=== PATIENT | male | born 1980 | race Hispanic/Latino ===

== ENCOUNTER 2018-11-07 23:21 | Emergency (ER) | payer SELFPAY ==
[2018-11-08 01:20] LABS: Absolute Lymphocytes (CBC) 1.6 K/uL (0.7-4.9); Absolute Monocytes 0.4 K/uL (0.1-1.3); Absolute Neutrophil 6.9 K/uL (1.8-8.0); Basophils % 0.5 % (0-1.3); Eosinophils % 1.1 % (0-4.4); Hematocrit 46.3 % (39.6-49.0); MPV 8.7 fL (7.6-11.3); RBC Red Blood Cell Count 5.55 M/uL (4.33-5.43)
[2018-11-08 01:26] LABS: Protime INR 0.94
[2018-11-08 01:38] LABS: ALT/SGPT 41 U/L (12-78); AST/SGOT 25 U/L (15-37); Albumin 3.9 g/dL (3.4-5.0); Alkaline Phosphatase 108 U/L (45-117); BUN Blood Urea Nitrogen 8 mg/dL (7-18); Bicarbonate 26 mmol/L (21-32); Bilirubin Direct 0.1 mg/dL (0-0.2); Bilirubin Total 0.3 mg/dL (0.2-1.0); Glucose Level 94 mg/dL (74-106); Potassium 3.7 mmol/L (3.5-5.1); Protein, Total 8.1 g/dL (6.4-8.2); Sodium Level 144 mmol/L (136-145)
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
[2018-11-08 03:20] VITALS: O2SAT 98
[2018-11-08 03:22] VITALS: BP 121/72; TEMP 98.5
--- NOTE | 2018-11-08 08:33 | EKG ---
Test Date: 2018-11-08 Test Time: 00:26:02 Tube Sorter: SAMEERA MEASUREMENT RESULTS: Intervals: Rate: 89 TX: 148 QRSD: 76 QT: 364 QTc: 442 [place]: P: 32 TX: 148 QRS: 58 T: 24 INTERPRETIVE STATEMENTS: Normal sinus rhythm with sinus arrhythmia Normal ECG Compared to ECG 04/17/2017 17:29:31 No significant changes Electronically Signed On 11-08-18 08:32:34 CDT by Gregg Johnson
--- NOTE | 2018-11-08 12:27 | RAD REPORT ---
EXAM DESCRIPTION: CT head Without Intravenous Contrast CT cervical Spine Without Intravenous Contrast CT Chest Without Intravenous Contrast CT Abdomen and Pelvis Without Intravenous Contrast CLINICAL HISTORY: The patient is 38 years old and is Male; PAIN TECHNIQUE: Axial computed tomography images of the head and cervical spine as well as chest, abdomen , pelvis without intravenous contrast. Sagittal and coronal reformatted images were created and rev iewed. This CT exam was performed using one or more of the following dose reduction techniques: a utomated exposure control, adjustment of the mA and/or kV according to patient size, and/or use of it erative reconstruction technique. COMPARISON: None. FINDINGS: INTRACRANIAL: Brain: No acute intracranial hemorrhage. No acute territorial infarct. No extra-axial collection. Ventricles: Within normal limits in size. Globes and orbits: No acute abnormality. Bones: No acute osseous finding. Paranasal sinuses: Paranasal sinuses are clear. Mastoid air cells: Well pneumatized.. Soft tissues: Within normal limits CHEST: LUNGS: Unremarkable. No mass. No consolidation. PLEURAL SPACE: No focal consolidation, pleural effusion or pneumothorax. HEART: Heart is within normal limits. No significant pericardial effusion. THYROID: Visualized thyroid is unremarkable. ABDOMEN: LIVER: Unremarkable. GALLBLADDER AND BILE DUCTS: Unremarkable. No calcified stones. No ductal dilation. PANCREAS: Unremarkable. No ductal dilation. SPLEEN: Unremarkable. No splenomegaly. ADRENALS: Unremarkable. No mass. KIDNEYS AND URETERS: Unremarkable. No obstructing stones. No hydronephrosis. STOMACH AND BOWEL: Unremarkable. No obstruction. No mucosal thickening. PELVIS: APPENDIX: No findings to suggest acute appendicitis. BLADDER: Unremarkable. No stones. REPRODUCTIVE: Unremarkable as visualized. CERVICAL SPINE: VERTEBRAE: Unremarkable. No acute fracture. DISCS/SPINAL CANAL/NEURAL FORAMINA: No acute findings. No spinal canal stenosis. CHEST, ABDOMEN and PELVIS: INTRAPERITONEAL SPACE: Unremarkable. No significant fluid collection. No free air. BONES/JOINTS: Unremarkable. No acute fracture. No dislocation. SOFT TISSUES: Unremarkable. VASCULATURE: Unremarkable. No aortic aneurysm. LYMPH NODES: No mediastinal lymphadenopathy. IMPRESSION: 1. No acute intracranial abnormality. 2. No cervical spine fracture or subluxation. 3. No acute abnormality of the chest, abdomen and pelvis. 4. Minimal sigmoid diverticulosis without acute diverticulitis. Electronically signed by: Kaleb Greene DO 11/08/2018 2:02 AM CDT Due to temporary technical issues with the PACS/Fluency reporting system, reports are being signed by the in house radiologist as a courtesy to ensure prompt reporting. The interpreting radiologist is f ully responsible for the content of the report.
== END 2018-11-08 02:46 | disposition home or self-care (01) ==
LOC: ER 23:21
DX: S30.0XXA Contusion of lower back and pelvis, initial encounter (principal); F10.929 Alcohol use, unspecified with intoxication, unspecified; V49.40XA Driver injured in collision with unspecified motor vehicles in traffic accident, initial encounter
CPT/HCPCS: 36415; 70450; 71250; 72125; 80048; 80076; 80320; 80329; 85025; 85610; 85730; 93005; 99285

== ENCOUNTER 2019-03-03 14:06 | Inpatient (IN) | payer SELFPAY ==
--- NOTE | 2019-03-03 15:05 | ER ---
Nurse's Notes [facility] Name: Adolph Keenan Age: 38 yrs Sex: Male : 1980 Arrival Date: 03/03/2019 Time: 14:07 Bed 7 Private MD: Diagnosis: Chest pain, unspecified;Essential (primary) hypertension;Type 2 diabetes mellitus Presentation: 03/03 14:20 Presenting complaint: Patient states: chest pain with SOB that began 2-3 days ago. Pt aa5 also c/o pain to back of head. Transition of care: patient was not received from another setting of care. Onset of symptoms was February 2019. Risk Assessment: Do you want to hurt yourself or someone else? Patient reports no desire to harm self or others. Initial Sepsis Screen: Does the patient meet any 2 criteria? No. Patient's initial sepsis screen is negative. Does the patient have a suspected source of infection? No. Patient's initial sepsis screen is negative. Care prior to arrival: None. 14:20 Acuity: JOAQUIN 3 aa5 14:20 Method Of Arrival: Ambulatory aa5 Historical: - Allergies: 14:23 No Known Allergies; aa5 - Home Meds: 14:23 None [Active]; aa5 - PMHx: 14:23 Hypertension; Diabetes - NIDDM; aa5 - PSHx: 14:23 Appendectomy; aa5 - Immunization history:: Adult Immunizations unknown. - Social history:: Smoking status: Patient/guardian denies using tobacco. - Ebola Screening: : No symptoms or risks identified at this time. - Family history:: not pertinent. Screenin:30 Abuse screen: Denies threats or abuse. Denies injuries from another. Nutritional sv screening: No deficits noted. Tuberculosis screening: No symptoms or risk factors identified. Fall Risk None identified. Assessment: 14:45 General: Appears in no apparent distress. uncomfortable, well developed, Behavior is sv calm, cooperative, appropriate for age. Pain: Complains of pain in anterior aspect of left upper chest, mid-sternal area and left breast Pain does not radiate. Pain currently is 5 out of 10 on a pain scale. Quality of pain is described as pressure, Pain began 2-3 days ago. Is intermittent. Neuro: Level of Consciousness is awake, alert, obeys commands, Oriented to person, place, time, situation, Moves all extremities. Full function Gait is steady, Speech is normal. Cardiovascular: Heart tones S1 S2 present Patient's skin is warm and dry. Pulses are 3+ in right brachial artery and left brachial artery Rhythm is sinus rhythm. Respiratory: Airway is patent Respiratory effort is even, unlabored, Respiratory pattern is regular, symmetrical. Derm: Skin is pink, warm \T\ dry. Musculoskeletal: Range of motion: intact in all extremities. 15:10 Reassessment: Pt up for admission, lab and radiology results pending. sv 16:31 Reassessment: Patient appears in no apparent distress at this time. No changes from sv previously documented assessment. Patient and/or family updated on plan of care and expected duration. Pain level reassessed. Patient is alert, oriented x 3, equal unlabored respirations, skin warm/dry/pink. Vital Signs: 14:23 BP 107 / 60; Pulse 64; Resp 18 S; Temp 97.5(TE); Pulse Ox 100% on R/A; Weight 68.04 kg aa5 (R); Height 5 ft. 8 in. (172.72 cm) (R); 16:27 BP 112 / 64; Pulse 49; Resp 15; Temp 98; Pulse Ox 100% on R/A; sv 14:23 Body Mass Index 22.81 (68.04 kg, 172.72 cm) aa5 NIH Stroke Scale Scores: 18:49 NIHSS Score: 0 [facility] ED Course: 14:07 Patient arrived in ED. as 14:20 Arm band placed on. aa5 14:22 Triage completed. aa 14:30 Patient has correct armband on for positive identification. Placed in gown. Bed in low sv position. Call light in reach. court recording monitor on. Pulse ox on. NIBP on. Door closed. Head of bed elevated. 14:33 Hermelindo Moreira MD is Attending Physician. nishant 14:51 Dixie Kincaid RN is Primary Nurse. sv 14:59 Robert Dey MD is Hospitalizing Provider. nishant 15:00 Initial lab(s) drawn, by sc, sent to lab. Inserted saline lock: 20 gauge in left hand, sv using aseptic technique. Blood collected. Flushed left hand with 5 ml normal saline. 15:04 X-ray(s) taken. Patient maintains SpO2 saturation greater than 95% on room air. sv 15:08 XRAY Chest (1 view) In Process Unspecified. EDMS 16:32 No provider procedures requiring assistance completed. Patient admitted, IV remains in sv place. intact. 19:08 Primary Nurse role handed off by Dixie Kincaid RN sv Administered Medications: 15:03 Drug: Aspirin Chewable Tablet 324 mg Route: PO; hb 16:00 Follow up: Response: No adverse reaction sv 15:04 Drug: Lovenox 1 mg/kg Route: Sub-Q; Site: abdomen; hb 16:00 Follow up: Response: No adverse reaction sv Point of Care Testing: Blood Glucose: 14:25 Blood Glucose: 173 mg/dL; aa5 Ranges: Outcome: 15:04 Decision to Hospitalize by Provider. nishant 16:32 Admitted to Tele accompanied by nurse, via wheelchair, room 404, with chart, Report sv called to Amol MIRANDA 16:32 Condition: stable 16:32 Instructed on the need for admit. 16:45 Patient left the ED. sv 19:18 Patient left the ED. NIH Stroke Scale - NIH Stroke Score Date: 03/03/2019 Time: 18:49 Total Score = 0 1a. Level of Consciousness (LOC) - 0(Alert) 1b. Level of Consciousness (LOC) (Year \T\ Age) - 0(Both) 1c. LOC Commands (Open \T\ Closes Eyes/Wastewater Technician) - 0(Both) 2. Best Gaze (Lateral Gaze Paresis) - 0(Normal) 3. Visual Field Loss - 0(No visual loss) 4. Facial Palsy - 0(Normal) 5a. Left Arm: Motor (10-second hold) - 0(No drift) 5b. Right Arm: Motor (10-second hold) - 0(No drift) 6a. Left Leg: Motor (5-second hold - always test supine) - 0(No drift) 6b. Right Leg: Motor (5-second hold - always test supine) - 0(No drift) 7. Limb Ataxia (finger/nose \T\ heel/maurer - test with eyes open) - 0(Absent) 8. Sensory Loss (pinprick arms/legs/face) - 0(Normal) 9. Best Language: Aphasia (description/naming/reading) - 0(No aphasia) 10. Dysarthria (speech clarity - read or repeat words) - 0(Normal) 11. Extinction and Inattention (visual/tactile/auditory/spatial/personal) - 0(No abnormality) Initials: nishant Signatures: Dispatcher [employer] Dixie Lezama RN RN sv Anderson, Corey, MD MD cha Martinez, Amelia as Calderon, Audri, RN RN aa5 Marti Avendano RN RN hb Antunez, Elena, RN RN ea Corrections: (The following items were deleted from the chart) 17:20 17:19 Patient left the ED. jacki echeverria
--- NOTE | 2019-03-03 15:05 | EDPHYS ---
Physician Documentation [facility] Name: Adolph Keenan Age: 38 yrs Sex: Male : 1980 Arrival Date: 03/03/2019 Time: 14:07 Bed 7 Private MD: ED Physician Hermelindo Moreira HPI: 03/03 14:56 This 38 yrs old Male presents to ER via Ambulatory with complaints of Chest nishant Pain. 14:56 The patient or guardian reports chest pain that is located primarily in the substernal nishant area. The pain does not radiate. Associated signs and symptoms: Pertinent positives: shortness of breath. The chest pain is described as a heaviness, a pressure. Modifying factors: The symptoms are alleviated by nothing. the symptoms are aggravated by nothing. Severity of pain: At its worst the pain was mild. The patient has not experienced similar symptoms in the past. Historical: - Allergies: 14:23 No Known Allergies; aa5 - Home Meds: 14:23 None [Active]; aa5 - PMHx: 14:23 Hypertension; Diabetes - NIDDM; aa5 - PSHx: 14:23 Appendectomy; aa5 - Immunization history:: Adult Immunizations unknown. - Social history:: Smoking status: Patient/guardian denies using tobacco. - Ebola Screening: : No symptoms or risks identified at this time. - Family history:: not pertinent. ROS: 14:56 Constitutional: Negative for fever, chills, and weight loss, Eyes: Negative for injury, nishant pain, redness, and discharge, ENT: Negative for injury, pain, and discharge, Neck: Negative for injury, pain, and swelling, Respiratory: Negative for shortness of breath, cough, wheezing, and pleuritic chest pain, Abdomen/GI: Negative for abdominal pain, nausea, vomiting, diarrhea, and constipation. 14:56 Back: Negative for injury and pain, : Negative for injury, bleeding, discharge, and swelling, MS/Extremity: Negative for injury and deformity, Skin: Negative for injury, rash, and discoloration, Neuro: Negative for headache, weakness, numbness, tingling, and seizure. 14:56 Cardiovascular: Positive for chest pain. Exam: 14:57 Constitutional: This is a well developed, well nourished patient who is awake, alert, nishant and in no acute distress. Head/Face: Normocephalic, atraumatic. Eyes: Pupils equal round and reactive to light, extra-ocular motions intact. Lids and lashes normal. Conjunctiva and sclera are non-icteric and not injected. Cornea within normal limits. Periorbital areas with no swelling, redness, or edema. ENT: Nares patent. No nasal discharge, no septal abnormalities noted. Tympanic membranes are normal and external auditory canals are clear. Oropharynx with no redness, swelling, or masses, exudates, or evidence of obstruction, uvula midline. Mucous membranes moist. Neck: Trachea midline, no thyromegaly or masses palpated, and no cervical lymphadenopathy. Supple, full range of motion without nuchal rigidity, or vertebral point tenderness. No Meningismus. Chest/axilla: Normal chest wall appearance and motion. Nontender with no deformity. No lesions are appreciated. Cardiovascular: Regular rate and rhythm with a normal S1 and S2. No gallops, murmurs, or rubs. Normal PMI, no JVD. No pulse deficits. Respiratory: Lungs have equal breath sounds bilaterally, clear to auscultation and percussion. No rales, rhonchi or wheezes noted. No increased work of breathing, no retractions or nasal flaring. Abdomen/GI: Soft, non-tender, with normal bowel sounds. No distension or tympany. No guarding or rebound. No evidence of tenderness throughout. Back: No spinal tenderness. No costovertebral tenderness. Full range of motion. Male : Normal genitalia with no discharge or lesions. Skin: Warm, dry with normal turgor. Normal color with no rashes, no lesions, and no evidence of cellulitis. MS/ Extremity: Pulses equal, no cyanosis. Neurovascular intact. Full, normal range of motion. Neuro: Awake and alert, GCS 15, oriented to person, place, time, and situation. Cranial nerves II-XII grossly intact. Motor strength 5/5 in all extremities. Sensory grossly intact. Cerebellar exam normal. Normal gait. Psych: Awake, alert, with orientation to person, place and time. Behavior, mood, and affect are within normal limits. 14:57 Musculoskeletal/extremity: DVT Exam: No signs of deep vein thrombosis. no pain, no swelling, no tenderness, negative Homans' sign noted on exam, no appreciated bluish discoloration, no erythema, no increased warmth. 18:49 Neck: ROM/movement: is normal, no acute changes, Meningeal signs: are not present, nishant Kernig's sign is negative, Brudzinski's sign is negative, nuchal rigidity, is not appreciated. Vital Signs: 14:23 BP 107 / 60; Pulse 64; Resp 18 S; Temp 97.5(TE); Pulse Ox 100% on R/A; Weight 68.04 kg aa5 (R); Height 5 ft. 8 in. (172.72 cm) (R); 16:27 BP 112 / 64; Pulse 49; Resp 15; Temp 98; Pulse Ox 100% on R/A; sv 14:23 Body Mass Index 22.81 (68.04 kg, 172.72 cm) aa5 NIH Stroke Scale Scores: 18:49 NIHSS Score: 0 nishant MDM: 14:33 Patient medically screened. nishant 14:58 Data reviewed: vital signs, nurses notes, lab test result(s), EKG, radiologic studies, nishant plain films. 03/03 14:43 Order name: Basic Metabolic Panel; Complete Time: 15:57 [facility] 03/03 14:43 Order name: CBC with Diff; Complete Time: 15:58 [facility] 03/03 14:43 Order name: LFT's; Complete Time: 15:58 [facility] 03/03 14:43 Order name: Magnesium; Complete Time: 15:58 [facility] 03/03 14:43 Order name: NT PRO-BNP; Complete Time: 15:58 [facility] 03/03 14:43 Order name: PT-INR; Complete Time: 15:58 [facility] 03/03 14:43 Order name: Troponin (emerg Dept Use Only); Complete Time: 15:58 [facility] 03/03 14:43 Order name: XRAY Chest (1 view); Complete Time: 16:19 [facility] 03/03 14:43 Order name: EKG; Complete Time: 14:45 [facility] 03/03 14:43 Order name: Cardiac monitoring; Complete Time: 15:03 [facility] 03/03 14:43 Order name: Lipase; Complete Time: 15:58 [facility] 03/03 15:34 Order name: CONS Physician Consult EDMS 03/03 14:43 Order name: EKG - Nurse/Tech; Complete Time: 14:55 [facility] 03/03 14:43 Order name: IV Saline Lock; Complete Time: 15:03 [facility] 03/03 14:43 Order name: Labs collected and sent; Complete Time: 15:10 [facility] 03/03 14:43 Order name: O2 Per Protocol; Complete Time: 15:03 [facility] 03/03 14:43 Order name: O2 Sat Monitoring; Complete Time: 15:03 [facility] Administered Medications: 15:03 Drug: Aspirin Chewable Tablet 324 mg Route: PO; hb 16:00 Follow up: Response: No adverse reaction sv 15:04 Drug: Lovenox 1 mg/kg Route: Sub-Q; Site: abdomen; hb 16:00 Follow up: Response: No adverse reaction sv Point of Care Testing: Blood Glucose: 14:25 Blood Glucose: 173 mg/dL; aa5 Ranges: Critical Glucose Levels:Adult <50 mg/dl or >400 mg/dl <40 mg/dl or >180 mg/dl Disposition: 03/03/19 15:04 Hospitalization ordered by Robert Dey for Observation. Preliminary diagnosis are Chest pain, unspecified, Essential (primary) hypertension, Type 2 diabetes mellitus. - Bed requested for Telemetry/MedSurg (observation). - Status is Observation. ea - Condition is Stable. - Problem is new. - Symptoms have improved. UTI on Admission? No NIH Stroke Scale - NIH Stroke Score Date: 03/03/2019 Time: 18:49 Total Score = 0 1a. Level of Consciousness (LOC) - 0(Alert) 1b. Level of Consciousness (LOC) (Year \T\ Age) - 0(Both) 1c. LOC Commands (Open \T\ Closes Eyes/Human Projectile) - 0(Both) 2. Best Gaze (Lateral Gaze Paresis) - 0(Normal) 3. Visual Field Loss - 0(No visual loss) 4. Facial Palsy - 0(Normal) 5a. Left Arm: Motor (10-second hold) - 0(No drift) 5b. Right Arm: Motor (10-second hold) - 0(No drift) 6a. Left Leg: Motor (5-second hold - always test supine) - 0(No drift) 6b. Right Leg: Motor (5-second hold - always test supine) - 0(No drift) 7. Limb Ataxia (finger/nose \T\ heel/maurer - test with eyes open) - 0(Absent) 8. Sensory Loss (pinprick arms/legs/face) - 0(Normal) 9. Best Language: Aphasia (description/naming/reading) - 0(No aphasia) 10. Dysarthria (speech clarity - read or repeat words) - 0(Normal) 11. Extinction and Inattention (visual/tactile/auditory/spatial/personal) - 0(No abnormality) Initials: nishant Signatures: Dispatcher [employer] EDDixie Easley RN RN sv Woody, Diana, RN RN dw Anderson, Corey, MD MD cha Calderon, Audri, RN RN aa5 Marti Avendano RN RN Erika Garland RN RN ea Corrections: (The following items were deleted from the chart) 16:14 15:04 Hospitalization Ordered by Robert Dey MD for Observation. Preliminary dw diagnosis is Chest pain, unspecified; Essential (primary) hypertension; Type 2 diabetes mellitus. Bed requested for Telemetry/MedSurg (observation). Status is Observation. Condition is Stable. Problem is new. Symptoms have improved. UTI on Admission? No. nishant 17:19 16:14 03/03/2019 15:04 Hospitalization Ordered by Robert Dey MD for sv Observation. Preliminary diagnosis is Chest pain, unspecified; Essential (primary) hypertension; Type 2 diabetes mellitus. Bed requested for Telemetry/MedSurg (observation). Status is Observation. Condition is Stable. Problem is new. Symptoms have improved. UTI on Admission? No. dw 19:18 17:19 03/03/2019 15:04 Hospitalization Ordered by Robert Dey MD for ea Observation. Preliminary diagnosis is Chest pain, unspecified; Essential (primary) hypertension; Type 2 diabetes mellitus. Bed requested for Telemetry/MedSurg (observation). Status is Observation. Condition is Stable. Problem is new. Symptoms have improved. UTI on Admission? No. sv
[2019-03-03] MEDS ORDERED: ENOXAPARIN 60 MG/0.6 ML SQ ONE (15:16)
[2019-03-03] MEDS ORDERED: ASPIRIN 81 MG CHEWABLE TABLET ONE (15:16)
[2019-03-03 15:30] LABS: Absolute Lymphocytes (CBC) 2.5 K/uL (0.7-4.9); Basophils % 0.6 % (0-1.3); Eosinophils % 5.4 % (0-4.4); Hematocrit 47.7 % (39.6-49.0); Lymphocytes % 37.1 % (15.3-44.8); MPV 9.7 fL (7.6-11.3); RBC Red Blood Cell Count 5.57 M/uL (4.33-5.43)
[2019-03-03 15:31] LABS: Protime INR 0.95
[2019-03-03 15:39] LABS: ALT/SGPT 39 U/L (12-78); AST/SGOT 33 U/L (15-37); Albumin 3.7 g/dL (3.4-5.0); Alkaline Phosphatase 95 U/L (45-117); BUN Blood Urea Nitrogen 10 mg/dL (7-18); Bicarbonate 29 mmol/L (21-32); Bilirubin Direct < 0.1 mg/dL (0-0.2); Bilirubin Total 0.6 mg/dL (0.2-1.0); Glucose Level 101 mg/dL (74-106); Lipase 165 U/L (73-393); Magnesium 2.4 mg/dL (1.8-2.4); NT PRO-BNP 32 pg/mL (<125); Potassium 4.4 mmol/L (3.5-5.1); Protein, Total 7.9 g/dL (6.4-8.2); Sodium Level 139 mmol/L (136-145); Troponin (Emerg Dept Use Only) < 0.02 ng/mL (0.0-0.045)
--- NOTE | 2019-03-03 16:14 | RAD REPORT ---
EXAM DESCRIPTION: Fran Single View03/03/2019 3:09 pm CLINICAL HISTORY: Chest pain COMPARISON: 2017 FINDINGS: The lungs appear clear of acute infiltrate. The heart is normal size IMPRESSION: No acute abnormalities displayed
--- NOTE | 2019-03-03 16:28 | P.HP ---
Certification for Inpatient Patient admitted to: Observation With expected LOS: <2 Midnights Patient will require the following post-hospital care: None Practitioner: I am a practitioner with admitting privileges, knowledge of patient current condition, hospital course, and medical plan of care. Services: Services provided to patient in accordance with Admission requirements found in Title 42 Section 412.3 of the Code of Federal Regulations Patient History Date of Service: 03/03/19 Primary Care Provider: None Reason for admission: Chest pain History of Present Illness: This is a 38 yr old male with a PMH of HTN and DM2 (he has been told, not on any medications and no official diagnosis per patient) admitted for chest pain r /o. Per patient, he has not seen a physician in a very long time but 2 yrs ago when he was incarcerated, he was told that his BP was high but never was given any medications. He reported the night around 3:30 am the night prior to arrival, he started with gasping for air and chest pain. He described it as a sharp type of pain without any radiation. He reported mild numbness and tingling on right upper arm, which resolved, then developed a numbness in left lower extremity. The chest pain did not improve therefore he decided to come to the Emergency room. He denied any sob at this time, vision changes, dizziness, speech changes, facial drooping/changes, GI or complaints. In the ER, he was hemodynamically stable, his labs were stable, he was AAOx3, in no acute distress. At the time of my exam, he was AAOx3, in no acute distress and reported improved chest pain. He reported some numbness and tingling on his left leg. He was admitted for chest pain rule out. Allergies No Known Allergies Allergy (Unverified 09/18/12 15:02) Home medications list reviewed: Yes Home Medications: NK [No Home Meds] 03/03/19 - Past Medical/Surgical History Has patient received pneumonia vaccine in the past: No Diabetic: Yes -: HTN -: Type 2 DM -: Tonsillectomy - Family History Family History: Reviewed- Non-Contributory - Social History Smoking Status: Unknown if ever smoked Counseled patient to stop smoking for: more than 10 minutes Smoking therapy provided: Yes Patient receptive to therapy: Yes Alcohol use: No CD- Drugs: No Caffeine use: No Place of Residence: Home Review of Systems 10-point ROS is otherwise unremarkable Physical Examination - Physical Exam General: Alert, In no apparent distress, Oriented x3 HEENT: Atraumatic, PERRLA, Mucous membr. moist/pink, EOMI, Sclerae nonicteric Neck: Supple, 2+ carotid pulse no bruit, No LAD, Without JVD or thyroid abnormality Respiratory: Clear to auscultation bilaterally, Normal air movement Cardiovascular: Regular rate/rhythm, Normal S1 S2 Gastrointestinal: Normal bowel sounds, No tenderness Musculoskeletal: No tenderness Integumentary: No rashes Neurological: Normal speech, Normal strength at 5/5 x4 extr, Normal tone, Normal affect, Other (Non focal neuro exam) Lymphatics: No axilla or inguinal lymphadenopathy - Studies Laboratory Data (last 24 hrs) 03/03/19 15:00: PT 11.2, INR 0.95 03/03/19 15:00: WBC 6.6, Hgb 15.9, Hct 47.7, Plt Count 276 03/03/19 15:00: Sodium 139, Potassium 4.4, BUN 10, Creatinine 1.15, Glucose 101 , Magnesium 2.4, Total Bilirubin 0.6, AST 33, ALT 39, Alkaline Phosphatase 95, Lipase 165 Assessment and Plan - Problems (Diagnosis) (1) Chest pain Current Visit: Yes Status: Acute Plan: Chest pain on Breathing. ACS R.o -EKG in ER with Sinus rhythm and early repolarization changes. Troponin x 1 negative in the ER -Will repeat Troponin x 2 and Start on ACS medication -HAART score 2 with low risk -Cardiology consulted. Qualifiers: Chest pain type: chest pain on breathing Qualified Code(s): R07.1 - Chest pain on breathing; R07.81 - Pleurodynia (2) SOB (shortness of breath) Current Visit: Yes Status: Acute Plan: Dyspnea most likely 2.2 to -Currently saturating 98-99 on RA -Will monitor closely (3) HTN (hypertension) Current Visit: Yes Status: Chronic Plan: Stable -Restart Home medication Qualifiers: Hypertension type: essential hypertension Qualified Code(s): I10 - Essential (primary) hypertension (4) Diabetes Current Visit: Yes Status: Chronic Plan: ISS and Accuchecks Qualifiers: Diabetes mellitus type: type 2 Diabetes mellitus alf insulin use: without terminal system operator use Diabetes mellitus complication status: without complication Qualified Code(s): E11.9 - Type 2 diabetes mellitus without complications (5) Numbness and tingling Current Visit: Yes Status: Acute Plan: of LLE along with headache in occipital region. Sensation and strength intact; non focal neuro exam DDx would include complex migraine, anxiety, drug induced, C spine/neuro disease , cva (less likely as nonfocal neuro exam, NIH of 3, young age, BP in normal range) - Code stroke was called on patient - CT head negative for acute abnormalities. - CTA head/neck ordered. Statin, ASA, full dose anticoagulation ordered. - Patient passed bedside swallow study, heart healthy diet. - No neurologist division toll wire chief today - May need an MRI if symptoms do not improve. - Plan DVT prophylaxis: On full dose AC Diet: heart healthy, NPO after midnight. GI prophylaxis: protonix Disposition: Pending workup. Discharge Plan: Home Plan to discharge in: 48 Hours - Advance Directives Does patient have a Living Will: No Does patient have a Durable POA for Healthcare: No - Code Status/Comfort Care Code Status Assessed: Yes Critical Care: No
[2019-03-03] MEDS ORDERED: GLUCAGON 1 MG/VIAL IM PRN (17:17)
[2019-03-03] MEDS ORDERED: ACETAMINOPHEN 500 MG TAB PO PRN (17:17)
[2019-03-03] MEDS: INSULIN -REGULAR HUMAN 50 UNIT/0.5 ML ML SQ SCH ×2 (17:17→21:00)
[2019-03-03] MEDS ORDERED: D50W 25 GM/50 ML SYRINGE IV PRN (17:17)
--- NOTE | 2019-03-03 17:42 | RAD REPORT ---
EXAM DESCRIPTION: CT - Ct Stroke Brain Wo Cont - 03/03/2019 5:29 pm CLINICAL HISTORY: Left-sided numbness/weakness COMPARISON: November 29, 2018 TECHNIQUE: Computed axial tomography of the head was obtained. All CT scans are performed using dose optimization technique as appropriate and may include automated exposure control or mA/KV adjustment according to patient size. FINDINGS: An intracranial bleed is not seen . The ventricles are normal in caliber. No extra-axial fluid collection is noted. Fluid within the sinuses/ mastoids is not seen. IMPRESSION: No acute intracranial abnormality is seen. If patient's symptoms persist MRI of the bra in would be recommended. Patient's nurse Samia was notified at 5:35 p.m. March 03, 2019
[2019-03-03 17:46] LABS: Basophils % 0.5 % (0-1.3); Hematocrit 47.9 % (39.6-49.0); Lymphocytes % 40.2 % (15.3-44.8); RBC Red Blood Cell Count 5.55 M/uL (4.33-5.43)
[2019-03-03 18:01] LABS: Protime INR 0.96
[2019-03-03 18:05] VITALS: BMI 22.8
[2019-03-03 18:16] LABS: BUN Blood Urea Nitrogen 9 mg/dL (7-18); Bicarbonate 31 mmol/L (21-32); Glucose Level 95 mg/dL (74-106); Potassium 4.5 mmol/L (3.5-5.1); Sodium Level 138 mmol/L (136-145); Troponin I < 0.02 ng/mL (0.0-0.045)
[2019-03-03] MEDS: MORPHINE 4 MG/ML SYR IV PRN (19:30)
[2019-03-03] MEDS: ONDANSETRON 4 MG/2 ML VIAL IV PRN (19:37)
[2019-03-03 20:23] LABS: Urine Appearance CLEAR; Urine Bilirubin NEGATIVE (NEG); Urine Blood NEGATIVE (NEG); Urine Color YELLOW; Urine Glucose NEGATIVE (NEG); Urine Protein NEGATIVE (NEG); Urine pH 6.5 (5.0-7.0)
[2019-03-03 20:27] LABS: Urine Microscopic Reflex NO UMIC
--- NOTE | 2019-03-03 20:50 | RAD REPORT ---
EXAM DESCRIPTION: Lesellie Angio03/03/2019 8:36 pm CLINICAL HISTORY: Left-sided numbness/weakness COMPARISON: None TECHNIQUE: 50 cc Isovue 370 was administered intravenously. 3D MIP reconstruction performed All CT scans are performed using dose optimization technique as appropriate and may include automated exposure control or mA/KV adjustment according to patient size. FINDINGS: The common carotid, internal carotid and external carotid arteries are normal caliber. The vertebral arteries are codominant without abnormality. IMPRESSION: Unremarkable exam NASCET criteria used. Mild 0-49% stenosis Moderate 50-69% stenosis Severe 70-99% stenosis
--- NOTE | 2019-03-03 20:55 | RAD REPORT ---
EXAM DESCRIPTION: CTHead angio03/03/2019 8:34 pm CLINICAL HISTORY: Left-sided numbness/weakness COMPARISON: None TECHNIQUE: CT angiogram of the head was obtained. 3D MIPS reconstruction performed. All CT scans are performed using dose optimization technique as appropriate and may include automated exposure control or mA/KV adjustment according to patient size. FINDINGS: The basilar, internal carotid, anterior cerebral, middle cerebral and posterior cerebral a rteries are normal caliber. An aneurysm is not seen. A significant stenosis is not noted. IMPRESSION: Unremarkable CT angiogram head.
[2019-03-03 20:57] LABS: Barbiturates NEGATIVE (NEGATIVE); Benzodiazepines NEGATIVE (NEGATIVE); Cocaine NEGATIVE (NEGATIVE); METHAMPHETAM NEGATIVE (NEGATIVE); Methadone NEGATIVE (NEGATIVE); Opiates NEGATIVE (NEGATIVE); Phencyclidine NEGATIVE (NEGATIVE); THC Cannibis NEGATIVE (NEGATIVE)
[2019-03-03] MEDS ORDERED: FENTANYL CITR 100 MCG/2 ML IV ONE (21:46)
[2019-03-03] MEDS: ENOXAPARIN 60 MG/0.6 ML SQ SCH (23:40)
[2019-03-03] MEDS: ATORVASTATIN 40 MG TAB PO SCH (23:41)
[2019-03-04 06:05] LABS: Absolute Lymphocytes (CBC) 3.2 K/uL (0.7-4.9); Basophils % 0.6 % (0-1.3); Eosinophils % 5.3 % (0-4.4); Hematocrit 43.5 % (39.6-49.0); MPV 9.1 fL (7.6-11.3); RBC Red Blood Cell Count 5.07 M/uL (4.33-5.43)
[2019-03-04 06:13] LABS: Potassium 3.8 mmol/L (3.5-5.1)
[2019-03-04] MEDS: INSULIN -REGULAR HUMAN 50 UNIT/0.5 ML ML SQ SCH ×4 (07:30→20:56)
--- NOTE | 2019-03-04 07:57 | P.PN ---
Date of Service: 03/03/19 Was called to see patient because of code stroke. Was notified around 6:45 p.m.. Saw patient at 6:59 p.m.. Patient had left upper extremity weakness and numbness. Patient did not have a pronator drift. No Babinski. The only physical exam findings that were remarkable was the left upper extremity weakness which was about a 4 over 5. He states his symptoms started about a week ago but they really got worse this morning around 4:00 a.m.. He is out of the window for receiving tPA. Otherwise no other symptoms. CT of the head has come back negative. Vital signs are stable blood pressure is only 110/70. Patient had a head injury about a year ago. At that time, he apparently has suffered a concussion. CT of the neck was also done in October of this year which did not reveal any abnormality. Will get a dedicated MRI of the brain as well as a C-spine MRI. Stress test will be put on hold for now pending MRI results.
[2019-03-04] MEDS: ENOXAPARIN 60 MG/0.6 ML SQ SCH ×2 (08:25→20:51)
[2019-03-04] MEDS: LISINOPRIL 10 MG TAB PO SCH (08:26)
[2019-03-04] MEDS: ASPIRIN EC 81 MG TAB PO SCH (08:26)
--- NOTE | 2019-03-04 08:54 | EKG ---
Test Date: 2019-03-03 Test Time: 18:25:15 Web Software Engineer: R MEASUREMENT RESULTS: Intervals: Rate: 47 UT: 140 QRSD: 78 QT: 454 QTc: 401 [place]: P: 20 UT: 140 QRS: 64 T: 35 INTERPRETIVE STATEMENTS: Marked sinus bradycardia ST elevation, probably due to early repolarization Abnormal ECG Compared to ECG 11/08/2018 00:26:02 ST (T wave) deviation now present Early repolarization now present Sinus rhythm no longer present Sinus arrhythmia no longer present Electronically Signed On 03-04-19 08:52:41 CDT by Garrison Ortega
--- NOTE | 2019-03-04 08:55 | EKG ---
Test Date: 2019-03-03 Test Time: 14:31:49 Stitcher Around: VALENTIN MEASUREMENT RESULTS: Intervals: Rate: 55 DE: 144 QRSD: 80 QT: 418 QTc: 399 [place]: P: 33 DE: 144 QRS: 77 T: 50 INTERPRETIVE STATEMENTS: Sinus bradycardia with sinus arrhythmia ST elevation, probably due to early repolarization Borderline ECG Compared to ECG 11/08/2018 00:26:02 ST (T wave) deviation now present Early repolarization now present Sinus rhythm no longer present Electronically Signed On 03-04-19 08:52:53 CDT by Garrison Ortega
--- NOTE | 2019-03-04 10:10 | P.PN ---
Subjective Date of Service: 03/04/19 (Hospitalist) Primary Care Provider: None Chief Complaint: Chest pain The still complaining of chest pain he has developed a new left-sided weakness so far CT of his head is negative MRI is pending cardio workup is also pending as been also complaining of chest pain on exertion laboratory data is on troponin is negative urinalysis is negative drug screen negative CBC normal Review of Systems General: Weakness Cardiovascular: Chest Pain Physical Examination - Vital Signs Temperature: 97.9 F Blood Pressure: 103/68 Pulse: 55 Respirations: 18 Pulse Ox (%): 97 - Physical Exam General: Alert, Oriented x3, Mild distress Respiratory: Clear to auscultation bilaterally Cardiovascular: No edema, Regular rate/rhythm Gastrointestinal: Normal bowel sounds Musculoskeletal: Other (Patient has distinct weakness of the left arm and leg no problems on the right side) - Studies Laboratory Data (last 24 hrs) 03/03/19 15:00: PT 11.2, INR 0.95 03/03/19 15:00: WBC 6.6, Hgb 15.9, Hct 47.7, Plt Count 276 03/03/19 15:00: Sodium 139, Potassium 4.4, BUN 10, Creatinine 1.15, Glucose 101 , Magnesium 2.4, Total Bilirubin 0.6, AST 33, ALT 39, Alkaline Phosphatase 95, Lipase 165 Assessment & Plan - Problems (Diagnosis) (1) Chest pain Current Visit: Yes Status: Acute Plan: Patient is 38 years of age admitted with chest pain cardiology consultative cardiac workup pending troponins negative EKG ST-T changes presume secondary to repolarization abnormality Qualifiers: Chest pain type: chest pain on breathing Qualified Code(s): R07.1 - Chest pain on breathing; R07.81 - Pleurodynia (2) Stroke Current Visit: Yes Status: Acute Plan: Possible he has developed new onset of weakness on the left side CT scan of the head is negative for an infarct or bleeding MRIs pending Qualifiers: CVA mechanism: unspecified Qualified Code(s): I63.9 - Cerebral infarction, unspecified
[2019-03-04] MEDS ORDERED: REGADENOSON 0.4 MG/5 ML SYR IV ONE (12:07)
--- NOTE | 2019-03-04 12:48 | RAD REPORT ---
EXAM DESCRIPTION: MRI - MRA Head Wo Cont - 03/04/2019 12:39 pm CLINICAL HISTORY: Left-sided numbness/weakness COMPARISON: CT angio head TECHNIQUE: Magnetic resonance angiogram was performed. 3D MIPS reconstruction performed FINDINGS: The anterior cerebral, middle cerebral, posterior cerebral, distal internal carotid and ba silar arteries do not demonstrate a significant stenosis. An aneurysm is not displayed. IMPRESSION: Unremarkable MRA brain.
--- NOTE | 2019-03-04 13:14 | RAD REPORT ---
EXAM DESCRIPTION: MRI - MRA Neck W/Wo Cont - 03/04/2019 1:07 pm CLINICAL HISTORY: Left-sided numbness/weakness COMPARISON: CT angio neck March 03, 2019 TECHNIQUE: Magnetic resonance angiogram of the neck was performed. 19 cc MultiHance was administered intravenously. 3D MIPS reconstruction performed FINDINGS: The common carotid, internal carotid and external carotid arteries do not demonstrate a si gnificant stenosis. An aneurysm is not seen. The vertebral arteries are codominant without visualization of an abnormality. IMPRESSION: Unremarkable MRA neck NASCET criteria used. Mild 0-49% stenosis Moderate 50-69% stenosis Severe 70-99% stenosis
--- NOTE | 2019-03-04 13:19 | RAD REPORT ---
EXAM DESCRIPTION: MRI - Brain W/Wo Cont - 03/04/2019 1:10 pm CLINICAL HISTORY: Left-sided numbness/weakness COMPARISON: July 31, [address] TECHNIQUE: Axial, sagittal, and coronal magnetic images of the brain were obtained. 16 cc MultiHance administered intravenously FINDINGS: No abnormal signal within the brain is noted. The ventricles are normal in caliber. Diffusion-weighted sequences do not demonstrate evidence of an acute infarction. No abnormal enhancement within the brain is seen. An extra-axial fluid collection is not noted. Fluid within the sinuses/mastoids is not seen. Minimal mucoperiosteal thickening involves the ethmoid sinus IMPRESSION: Unremarkable brain MRI.
--- NOTE | 2019-03-04 13:23 | RAD REPORT ---
EXAM DESCRIPTION: MRI - C Spine Wo Cont - 03/04/2019 1:10 pm CLINICAL HISTORY: Left-sided numbness/weakness COMPARISON: None TECHNIQUE: Magnetic resonance imaging of the cervical spine was obtained with coronal and sagittal r econstruction FINDINGS: C2-3, C3-4, C4-5, C5-6, C6-7 and C7-T1 levels unremarkable A significant bulging/herniated disc is not noted. Central/foraminal stenosis is not present The spinal cord is normal caliber and signal. No abnormal signal within the bones is noted. IMPRESSION: Unremarkable unenhanced MRI cervical spine
--- NOTE | 2019-03-04 14:12 | CON ---
Date of Consultation: 03/04/[address] Dey's service on 03/03/2019 I saw the patient on 03/04/2019. Reason For Consultation: Chest pain. History Of Present Illness: Mr. Keenan is a 38-year-old [place] male with history of hyperten jeferson and diabetes, but he is not taking any medication. He came in with severe substernal chest pain , midepigastric region, radiating to the back along with some left arm numbness, left leg numbness. Symptoms have been going on for about 24 hours. Denied PND, orthopnea, pedal edema, palpitations, or syncope. Denies nausea, vomiting, or diaphoresis. He has already had a negative troponin, normal E KG except for early repolarization, normal CT angiogram of the head and neck, blood vessels. Chest x -ray was negative. BNP was negative. The patient continues to have pain. Allergies: NONE. Review of Systems: Negative. Social History: Negative. Family History: Negative. Medications: At home are none. Physical Examination: General: He appears to be very anxious, appears to be in moderate distress. Vital Signs: Stable. Afebrile. Sinus rhythm. HEENT: Negative. Neck: Supple. No bruit. Chest: Clear. Cardiac: Exam reveals regular rhythm and rate. No murmurs, gallops, or rubs. Abdomen: Benign. Extremities: Revealed no clubbing, cyanosis, or edema. Diagnostic Data: As stated earlier. Impression And Plan: Atypical chest pain, most likely gastroesophageal. Symptoms have been going on for more than 24 hours with normal EKG, normal troponin, normal chest x-ray. Left arm numbness and left leg numbness of unknown etiology. He had MRA and CT of the head and CT angiogram of the head, a ll of which were negative without any focal, carotid stenosis or evidence of stroke. Workup for cerv ical spondylosis and other spinal issues are in progress. Hypertension, well controlled. Diabetes, poorly controlled. He may need to be on some medicine for that. I think an echocardiogram and Dolly can are indicated to rule out coronary artery disease. NB/MODL Voice ID: [id number] Report ID: [id number]
--- NOTE | 2019-03-04 14:26 | RAD REPORT ---
EXAM DESCRIPTION: NM - Rest Stress Cardiac Imaging - 03/04/2019 2:08 pm CLINICAL HISTORY: Chest pain COMPARISON: None. TECHNIQUE: The patient was administered 10.9 mCi of Tc 99m Sestamibi prior to resting SPECT imaging of the heart. The patient was then administered 31.6 mCi of Tc 99m Sestamibi following exercise or ph armacologic stress. Multiplanar SPECT images were reviewed. FINDINGS: The end diastolic volume is 108 ml, the end systolic volume is 44 ml, and the ejection fra ction is 59 %. Moderate-sized area of mildly diminished activity seen along the mid in apex portion of the anterior wall on stress imaging. This is absent on the rest imaging. Diminished activity along the inferolater al wall is not clearly different between rest and stress imaging. This is probably diaphragm attenuat ion artifact. IMPRESSION: Anterior wall stress ischemia is evident in the mid and apex portion of the left ventric le. Ventricular volumes and ejection fraction are normal range.
[2019-03-04] MEDS: ATORVASTATIN 40 MG TAB PO SCH (20:51)
[2019-03-05] MEDS: MORPHINE 4 MG/ML SYR IV PRN (02:09)
[2019-03-05] MEDS: ONDANSETRON 4 MG/2 ML VIAL IV PRN (02:14)
[2019-03-05] MEDS ORDERED: FENTANYL CITR 100 MCG/2 ML IV ONE (03:52)
--- NOTE | 2019-03-05 07:18 | EKG ---
Test Date: 2019-03-05 Test Time: 03:26:50 Image Assembler: RT-O MEASUREMENT RESULTS: Intervals: Rate: 49 [place]: 142 QRSD: 86 QT: 464 QTc: 419 [place]: P: 32 [place]: 142 QRS: 62 T: 48 INTERPRETIVE STATEMENTS: Marked sinus bradycardia with sinus arrhythmia Early repolarization Abnormal ECG Compared to ECG 03/03/2019 18:25:15 ST (T wave) deviation no longer present Electronically Signed On 03-05-19 07:17:45 CDT by Garrison Ortega
[2019-03-05] MEDS: INSULIN -REGULAR HUMAN 50 UNIT/0.5 ML ML SQ SCH ×4 (07:30→21:00)
[2019-03-05] MEDS: LISINOPRIL 10 MG TAB PO SCH (09:00)
[2019-03-05] MEDS: ENOXAPARIN 60 MG/0.6 ML SQ SCH (09:00)
[2019-03-05] MEDS: NITROGLYCERIN 0.1 MG/HR (2.5 MG) PATCH TD SCH (09:00)
--- NOTE | 2019-03-05 09:54 | P.PN ---
Subjective Date of Service: 03/05/19 (Hospitalist) Primary Care Provider: None Chief Complaint: Chest pain Patient is still complaining of chest pain seen by Cardiology there is no evidence of myocardial damage all the stress test shows some anterior ischemia still continues to have a pain at the level of 10 he appears to be comfortable lying in bed no imaging evidence of stroke although is still some weakness of the left side Review of Systems General: Weakness Cardiovascular: Chest Pain Physical Examination - Vital Signs Temperature: 96.3 F Blood Pressure: 98/53 Pulse: 50 Respirations: 18 Pulse Ox (%): 97 - Physical Exam General: Alert, In no apparent distress, Oriented x3 Respiratory: Clear to auscultation bilaterally Cardiovascular: No edema, Regular rate/rhythm, Normal S1 S2 Gastrointestinal: Normal bowel sounds, Soft and benign Assessment & Plan - Problems (Diagnosis) (1) Chest pain Current Visit: Yes Status: Acute Plan: Patient admitted with chest pain seen by Cardiology stress tests is abnormal possibly anterior ischemia and no EKG evidence of or troponin evidence of myocardial damage cardiac catheterization on Thursday I have added nitro paste ambulate patient Qualifiers: Chest pain type: chest pain on breathing Qualified Code(s): R07.1 - Chest pain on breathing; R07.81 - Pleurodynia (2) Stroke Current Visit: Yes Status: Acute Plan: Patient has some weakness on the left side there is no imaging evidence of a stroke Qualifiers: CVA mechanism: unspecified Qualified Code(s): I63.9 - Cerebral infarction, unspecified
[2019-03-05] MEDS: ASPIRIN EC 81 MG TAB PO SCH (10:04)
[2019-03-05] MEDS: ATORVASTATIN 40 MG TAB PO SCH (20:45)
[2019-03-05] MEDS: ENOXAPARIN 80 MG/0.8 ML SQ SCH (20:45)
[2019-03-06] MEDS: INSULIN -REGULAR HUMAN 50 UNIT/0.5 ML ML SQ SCH ×4 (07:30→21:00)
[2019-03-06] MEDS: LISINOPRIL 10 MG TAB PO SCH (09:00)
[2019-03-06] MEDS: NITROGLYCERIN 0.1 MG/HR (2.5 MG) PATCH TD SCH (09:00)
[2019-03-06] MEDS: ASPIRIN EC 81 MG TAB PO SCH (09:16)
[2019-03-06] MEDS: ENOXAPARIN 80 MG/0.8 ML SQ SCH ×2 (09:16→20:30)
--- NOTE | 2019-03-06 09:55 | P.PN ---
Subjective Date of Service: 03/06/19 Primary Care Provider: None Chief Complaint: Chest pain Patient is doing better chest pain has improved blood pressure is slightly low schedule for a cardiac catheterization tomorrow Review of Systems Unremarkable Physical Examination - Vital Signs Temperature: 97 F Blood Pressure: 93/53 Pulse: 48 Respirations: 18 Pulse Ox (%): 97 - Physical Exam General: Alert, Oriented x3 Respiratory: Clear to auscultation bilaterally Cardiovascular: No edema, Regular rate/rhythm Assessment & Plan - Problems (Diagnosis) (1) Chest pain Current Visit: Yes Status: Acute Plan: His chest pain has improved schedule for a cardiac catheterization tomorrow Qualifiers: Chest pain type: chest pain on breathing Qualified Code(s): R07.1 - Chest pain on breathing; R07.81 - Pleurodynia (2) Stroke Current Visit: Yes Status: Suspected Plan: Patient has some weakness on the left side there is no imaging evidence of a stroke Qualifiers: CVA mechanism: unspecified Qualified Code(s): I63.9 - Cerebral infarction, unspecified
[2019-03-06] MEDS: MORPHINE 4 MG/ML SYR IV PRN (11:25)
[2019-03-06 12:18] LABS: Absolute Lymphocytes (CBC) 3.5 K/uL (0.7-4.9); Basophils % 1.2 % (0-1.3); Eosinophils % 2.9 % (0-4.4); Hematocrit 46.1 % (39.6-49.0); Lymphocytes % 40.2 % (15.3-44.8); MPV 9.2 fL (7.6-11.3); Monocytes % 6.9 % (3.3-12.3); RBC Red Blood Cell Count 5.31 M/uL (4.33-5.43)
[2019-03-06 12:32] LABS: Potassium 4.1 mmol/L (3.5-5.1)
[2019-03-06 12:35] LABS: Protime INR 0.99
[2019-03-06] MEDS: HYDROCODONE/APAP 5/325 MG TAB PO PRN ×2 (14:02→20:29)
--- NOTE | 2019-03-06 14:30 | PN ---
Date of Progress Note: 03/06/2019 Subjective: Mr. Keenan has been in the hospital since 03/03/2019, with chest pain. Had a normal EKG , normal troponin, normal BNP, normal workup as far as his numbness was concerned. He had numbness i n the left arm and left leg. Had a negative MRA and CT angiogram of his carotids and brain. Stress test which was done on Thursday was positive for anteroseptal ischemia. The patient continues to have some chest pain. We will plan a left heart catheterization on 03/07/2019 to define his coronary isael yesy. He understand the risk and the benefits of the procedure and he agrees to proceed. JASON/DOROTHY Voice ID: [id number] Report ID: [id number]
[2019-03-06] MEDS: ATORVASTATIN 40 MG TAB PO SCH (20:30)
[2019-03-07] MEDS: HYDROCODONE/APAP 5/325 MG TAB PO PRN (00:01)
[2019-03-07] MEDS ORDERED: NA CHLORIDE 0.9% 1,000 ML ONE (06:58)
[2019-03-07] MEDS: INSULIN -REGULAR HUMAN 50 UNIT/0.5 ML ML SQ SCH ×3 (07:30→15:57)
--- NOTE | 2019-03-07 08:27 | ECHO ---
HEIGHT: 5 ft 8 in WEIGHT: 150 lb 0 oz DATE OF STUDY: 03/04/[address]: Robert Dey MD 2-DIMENSIONAL: YES M.MODE: YES DOPPLER: YES COLOR FLOW: YES TDS: NO PORTABLE: NO DEFINITY: NO BUBBLE STUDY: NO DIAGNOSIS: CHEST PAIN CARDIAC HISTORY: CATHERIZATION: NO SURGERY: NO PROSTHETIC VALVE: NO PACEMAKER: NO MEASUREMENTS (cm) DIASTOLIC (NORMALS) SYSTOLIC (NORMALS) IVSd 1.0 (0.6-1.2) LA Diam 3.6 (1.9-4.0) LVEF 63% LVIDd 4.0 (3.5-5.7) LVIDs 2.7 (2.0-3.5) %FS 33% LVPWd 1.0 (0.6-1.2) Ao Diam 2.6 (2.0-3.7) 2 DIMENSIONAL ASSESSMENT: RIGHT ATRIUM: NORMAL LEFT ATRIUM: NORMAL RIGHT VENTRICLE: NORMAL LEFT VENTRICLE: NORMAL TRICUSPID VALVE: NORMAL MITRAL VALVE: NORMAL PULMONIC VALVE: NORMAL AORTIC VALVE: NORMAL PERICARDIAL EFFUSION: NONE AORTIC ROOT: NORMAL LEFT VENTRICULAR WALL MOTION: NORMAL DOPPLER/COLOR FLOW: NORMAL COMMENTS: NORMAL 2D ECHOCARDIOGRAM WITH DOPPLER. NO WALL MOTION ABNORMALITY. NO EFFUSION. TECHNOLOGIST: Jerrell ROYAL
[2019-03-07] MEDS: ENOXAPARIN 80 MG/0.8 ML SQ SCH (09:00)
[2019-03-07] MEDS: NITROGLYCERIN 0.1 MG/HR (2.5 MG) PATCH TD SCH (09:00)
[2019-03-07] MEDS: LISINOPRIL 10 MG TAB PO SCH (09:00)
[2019-03-07] MEDS: ASPIRIN EC 81 MG TAB PO SCH (09:56)
[2019-03-07] MEDS ORDERED: HEPA 1000U/500MLS 1,000 UNIT/500 ML BAG IV ONE (12:03)
[2019-03-07] MEDS ORDERED: MIDAZOLAM HCL 2 MG/2 ML INJ ONE (12:03)
[2019-03-07] MEDS ORDERED: FENTANYL CITR 100 MCG/2 ML ONE (12:03)
[2019-03-07] MEDS ORDERED: ATROPINE SULF 1 MG/10 ML SYR IV ONE (12:04)
[2019-03-07] MEDS ORDERED: NA CHLORIDE 0.9% 0 ML ONE ×2 (12:04→12:09)
--- NOTE | 2019-03-07 12:06 | TREADPHA ---
DX: CHEST PAIN Date of Study: 03/04/2019 Ht: 5 8 Wt: 150 lb 0 oz Consulting Physician: CASIMIRO MEDICATIONS: TYLENOL, ASPIRIN, LIPITOR, DEXTROSE, LOVENOX, GLUCOGEN, NOVOLIN-R, PRINIVIL HISTORY: 38 YEAR OLD MALE WITH COMPLAINTS OF CHEST PAIN. HISTORY OF HYPERTENSION, NIDDM, NON SMOKER, NON DRINKER. PHYSICIAL EXAMINATION: RESTING B.P.: 113/78 RESTING H.R.: 52 RESTING EKG: NORMAL PROTOCOL: LEXISCAN EXERCISE TIME: 3:30 B.P. AT PEAK STRESS: 125/77 IMPRESSION: LEXISCAN INJECTED, FOLLOWED BY CARDIOLITE PER PROTOCOL. SEE NUCLEAR MEDICINE REPORT. NO SUPRAVENTRICULAR TACHYCARDIA, VENTRICULAR TACHYCARDIA, PREMATURE ATRIAL COMPLEXES OR PREMATURE VENTRICULAR COMPLEXES. PATIENT REPORTED CHEST PAIN 4/10 THROUGHOUT.
--- NOTE | 2019-03-07 12:54 | EKG ---
Test Date: 2019-03-06 Test Time: 12:02:59 Copper Plater: JAQUELINE MEASUREMENT RESULTS: Intervals: Rate: 64 [place]: 152 QRSD: 80 QT: 412 QTc: 425 [place]: P: 29 [place]: 152 QRS: 83 T: 9 INTERPRETIVE STATEMENTS: Normal sinus rhythm with sinus arrhythmia Normal ECG Compared to ECG 03/05/2019 03:26:50 Sinus bradycardia no longer present Early repolarization no longer present Electronically Signed On 03-07-19 12:49:59 CDT by Garrison Ortega
[2019-03-07] MEDS ORDERED: NA CHLORIDE 0.9% 1,000 ML IV SCH (14:00)
[2019-03-07 17:10] VITALS: BP 100/70; TEMP 98.7; O2SAT 99
--- NOTE | 2019-03-08 06:55 | DS ---
Date of Discharge: 03/07/2019 Consultants: Dr. Ortega with Cardiology. Procedures: Cardiac stress test on 03/04/2019 showed stress-induced ischemia. Procedure on 03/07/2019, cardiac catheterization, no stents or angioplasty. Echocardiogram showed EF of 63%. No wall motion abnormality. Admitting Diagnoses: 1. Chest pain, rule out acute coronary syndrome. 2. Shortness of breath. 3. Essential hypertension. 4. Diabetes mellitus type 2 without long-term use of insulin with hyperglycemia. 5. Numbness and tingling. Discharge Diagnoses: 1. Chest pain, status post cardiac catheterization. No stents required. 2. Left-sided weakness. Cerebrovascular accident ruled out. MRI negative. 3. Diabetes mellitus type 2, non insulin requiring, with hyperglycemia. 4. Essential hypertension, stable. 5. Shortness of breath, resolved. Hospital Course: The patient is a 38-year-old male with past medical history of hypertension and diabetes, diet controlled, who comes in with chest pain. The patient was admitted to rule out ACS. His cardiac enzymes remain negative x3; ACS was ruled out. Cardiac stress test was done, which was positive and showed stress-induced ischemia. Echocardiogram was done and Cardiology was consulted. The patient was taken for cardiac catheterization as mentioned above , which was negative. His triglyceride levels were elevated. He was counseled regarding his diet. The patient voiced understanding. His diabetes seems to be well controlled. He is not on any medications at home. Does not have a PCP. He was recommended to have the PCP as well. Regarding his other symptoms , shortness of breath, resolved. The patient did have some numbness and tingling along with left-sided weakness. No speech alteration. Code stroke was called. Head CT scan was done, which was negative including neck CTA. Further investigation with brain MRI and neck MRI was done along with cervical spine MRI, which were all negative for cerebrovascular accident. I did speak with neurologist, Dr. Sheets. He recommended outpatient followup as there was no acute symptomatology. There is a possibility of secondary gain for the patient. Symptoms are not explained, do not match up with imaging studies. The patient may need electromyogram or further testing as an outpatient with Neurology. The patient's symptoms were improved. He was able to ambulate without difficulty. His chest pain had resolved. He was saturating well on room air. He was then cleared for discharge and was sent home in a stable condition. Activity: As tolerated. Medications: As per medication reconciliation list. Diet: Diabetic diet. Followup: Follow up with PCP in 2-3 days. Follow up with dairy equipment installer, Dr. Ortega, in 2 weeks. Follow up with neurologist, Dr. Sheets, in 2 weeks. Return to ER for worsening condition. Physical Examination: General: Awake, alert, oriented x3. No acute distress. CV: S1, S2. No murmurs. Respiratory: Moving air well bilaterally. No wheezing. Gastrointestinal: Abdomen is soft, nontender, nondistended. Positive bowel sounds. Extremities: No clubbing, cyanosis, or edema. Total time spent discharging the patient was 41 minutes. /DOROTHY Voice ID: [id number] Report ID: [id number] MTDD
--- NOTE | 2019-03-08 14:59 | OP ---
Date of Procedure: 03/07/2019 Surgeon: Garrison Ortega MD Hris Specialist: Naa Russo. Procedures: Left heart catheterization, selective coronary arteriogram. Indication: Chest pain and abnormal stress tests. Procedure In Detail: Ms. Michelle was brought to the yard labor supervisor as an inpatient. He was prepped and drape d in the routine sterile fashion. A 6-Lithuanian sheath introduced in the right common femoral artery darby ccessfully. Angiography there was normal. Angio-Seal was used to close the case. Michelle catheters were used to do coronary angiography selectively. His RCA was small, nondominant. His circumflex w as dominant and was normal. His LAD and left main were normal. Complications: None. Blood Loss: Less than 5 cc. Final Diagnosis: False-positive stress test with normal coronaries, atypical chest pain. Plan: Plan is for medical therapy. Total conscious sedation was 30 minutes. JASON/DOROTHY Voice ID: [id number] Report ID: [id number]
== END 2019-03-07 19:30 | disposition home or self-care (01) | DRG 287 ==
LOC: ER 14:06 → ERHOLD 15:31 → 4TH 16:30 → OBSVTOIN 03-05 14:36
PROVIDERS: ADMIT Family Medicine; ATTEND Family Medicine
PROC: 4A023N7 Measurement of Cardiac Sampling and Pressure, Left Heart, Percutaneous Approach (ICD-10-PCS; principal; 2019-03-07)
PROC: B2111ZZ Fluoroscopy of Multiple Coronary Arteries using Low Osmolar Contrast (ICD-10-PCS; 2019-03-07)
DX: R07.9 Chest pain, unspecified (principal); R06.02 Shortness of breath; I10 Essential (primary) hypertension; E11.9 Type 2 diabetes mellitus without complications; R53.1 Weakness; R20.0 Anesthesia of skin; R20.2 Paresthesia of skin
CPT/HCPCS: 36415; 70450; 70496; 70498; 70544; 70549; 70553; 71045; 72141; 78452; 80048; 80061; 80076; 80307; 81003; 82962; 83690; 83735; 83880; 84484; 85025; 85610; 85730; 93005; 93017; 93306; 93454; 94760; 96372; 97163; 99285; A9500; A9577; C1760; C1893; G0378; J0583; J1650; J2250; J2405; J2785; J3010; J7030; Q9967

== ENCOUNTER 2019-08-08 01:21 | Observation (INO) | payer SELFPAY ==
[2019-08-08 01:52] LABS: Protime INR 0.89
[2019-08-08 01:54] LABS: Absolute Lymphocytes (CBC) 1.7 K/uL (0.7-4.9); Basophils % 0.6 % (0-1.3); Hematocrit 43.4 % (39.6-49.0); Lymphocytes % 18.6 % (15.3-44.8); MPV 8.7 fL (7.6-11.3); RBC Red Blood Cell Count 5.12 M/uL (4.33-5.43)
[2019-08-08 02:08] LABS: ALT/SGPT 38 U/L (12-78); AST/SGOT 20 U/L (15-37); Albumin 3.7 g/dL (3.4-5.0); Alkaline Phosphatase 121 U/L (45-117); BUN Blood Urea Nitrogen 7 mg/dL (7-18); Bicarbonate 27 mmol/L (21-32); Bilirubin Direct 0.1 mg/dL (0-0.2); Bilirubin Total 0.3 mg/dL (0.2-1.0); Glucose Level 112 mg/dL (74-106); NT PRO-BNP 44 pg/mL (<125); Potassium 3.9 mmol/L (3.5-5.1); Protein, Total 7.5 g/dL (6.4-8.2); Sodium Level 140 mmol/L (136-145); Troponin (Emerg Dept Use Only) < 0.02 ng/mL (0.0-0.045)
[2019-08-08] MEDS ORDERED: ASPIRIN 81 MG CHEWABLE TABLET ONE (03:13)
[2019-08-08] MEDS ORDERED: ONDANSETRON 4 MG/2 ML VIAL ONE (03:20)
[2019-08-08] MEDS ORDERED: MORPHINE 4 MG/ML SYR ONE (03:20)
[2019-08-08] MEDS ORDERED: KETOROLAC 30 MG/ML INJ ONE (03:26)
--- NOTE | 2019-08-08 03:46 | EDPHYS ---
Physician Documentation [facility] Name: Adolph Keenan Age: 39 yrs Sex: Male : 1980 Arrival Date: 08/08/2019 Time: 01:22 Bed 6 Private MD: ED Physician Luis Ramos HPI: 08/08 03:03 This 39 yrs old Male presents to ER via Wheelchair with complaints of Chest la1 Pain. 03:03 The patient or guardian reports chest pain that is located primarily in the substernal la1 area, anterior chest wall. The pain does not radiate. Associated signs and symptoms: Pertinent negatives: lightheadedness, near syncope, shortness of breath. The chest pain is described as dull. Duration:. Modifying factors: The symptoms are alleviated by nothing. the symptoms are aggravated by nothing. Severity of pain: At its worst the pain was moderate. The patient has not experienced similar symptoms in the past. The patient has not recently seen a physician. Pt reports he has had intermittent chest pain for the last week, also reports that when he woke up Thursday morning 08/07 the left side of his body was weak and had less sensation.. Historical: - Allergies: 01:31 No Known Allergies; jb4 - Home Meds: 01:31 Metformin Oral [Active]; jb4 - PMHx: 01:31 Diabetes - NIDDM; Hypertension; jb4 - PSHx: 01:31 Appendectomy; jb4 - Immunization history:: Adult Immunizations unknown. - Social history:: Smoking status: Patient/guardian denies using tobacco, Patient/guardian denies using alcohol, street drugs. - Ebola Screening: : No symptoms or risks identified at this time. ROS: 03:05 Constitutional: Negative for fever, chills, and weight loss, Eyes: Negative for injury, la1 pain, redness, and discharge, ENT: Negative for injury, pain, and discharge, Neck: Negative for injury, pain, and swelling, Cardiovascular: + for chest pain Respiratory: Negative for shortness of breath, cough, wheezing, and pleuritic chest pain, Abdomen/GI: Negative for abdominal pain, nausea, vomiting, diarrhea, and constipation, Back: Negative for injury and pain, : Negative for injury, bleeding, discharge, and swelling, MS/Extremity: Negative for injury and deformity, Skin: Negative for injury, rash, and discoloration. 03:05 Neuro: Positive for numbness, tingling, weakness, of the left arm and left leg. Exam: 01:29 ECG was reviewed by the Attending Physician. la1 01:30 Constitutional: This is a well developed, well nourished patient who is awake, alert, la1 and in no acute distress. Head/Face: Normocephalic, atraumatic. Eyes: Pupils equal round and reactive to light, extra-ocular motions intact. Periorbital areas with no swelling, redness, or edema. ENT: Nares patent. No nasal discharge, no septal abnormalities noted. Tympanic membranes are normal and external auditory canals are clear. Oropharynx with no redness, swelling, or masses, exudates, or evidence of obstruction, uvula midline. Mucous membranes moist. Neck: Trachea midline, no cervical lymphadenopathy. Supple, full range of motion without nuchal rigidity, or vertebral point tenderness. No Meningismus. Chest/axilla: Normal chest wall appearance and motion. Nontender with no deformity. No lesions are appreciated. Cardiovascular: Regular rate and rhythm with a normal S1 and S2. No gallops, murmurs, or rubs. Normal PMI, no JVD. No pulse deficits. Respiratory: Lungs have equal breath sounds bilaterally, clear to auscultation No rales, rhonchi or wheezes noted. No increased work of breathing, no retractions or nasal flaring. Abdomen/GI: Soft, non-tender, with normal bowel sounds. No distension or tympany. No guarding or rebound. No evidence of tenderness throughout. Back: No spinal tenderness. No costovertebral tenderness. Full range of motion. Neuro: Awake and alert, GCS 15, oriented to person, place, time, and situation. Cranial nerves II-XII grossly intact. Motor strength 5/5 in all extremities. Sensory grossly intact. Cerebellar exam normal. Normal gait. Psych: Awake, alert, with orientation to person, place and time. Behavior, mood, and affect are within normal limits. Vital Signs: 01:31 BP 154 / 97; Pulse 85; Resp 14; Temp 98.1(O); Pulse Ox 99% on R/A; Weight 81.65 kg (R); jb4 Height 5 ft. 6 in. (167.64 cm) (R); Pain 10/10; 02:20 BP 136 / 99; Pulse 74; Resp 16; Pulse Ox 99% on R/A; jb4 03:45 BP 141 / 87; Pulse 70; Resp 20; Pulse Ox 100% on R/A; jb4 04:30 BP 144 / 81; Pulse 77; Resp 17; Pulse Ox 100% on R/A; jb4 06:00 BP 133 / 80; Pulse 89; Resp 17; Pulse Ox 100% ; jb4 01:31 Body Mass Index 29.05 (81.65 kg, 167.64 cm) jb4 NIH Stroke Scale Scores: 03:05 NIHSS Score: 3 la MDM: 01:23 Patient medically screened. la 03:43 Data reviewed: vital signs, nurses notes, lab test result(s), EKG, radiologic studies, la CT scan, plain films, I have discussed the patient's presentation/case with the attending Emergency Department Physician; and as a result, I will admit patient. Data interpreted: Pulse oximetry: on room air is 99 %. Interpretation: normal. Counseling: I had a detailed discussion with the patient and/or guardian regarding: the historical points, exam findings, and any diagnostic results supporting the discharge/admit diagnosis, lab results, radiology results, the need for further work-up and treatment in the hospital. 08/08 01:29 Order name: Basic Metabolic Panel; Complete Time: 02:10 08/08 01:29 Order name: CBC with Diff; Complete Time: 02:08/08 01:29 Order name: LFT's; Complete Time: 02:08/08 01:29 Order name: Magnesium; Complete Time: 02:08/08 01:29 Order name: NT PRO-BNP; Complete Time: 02:08/08 01:29 Order name: PT-INR; Complete Time: 02:08/08 01:29 Order name: Troponin (emerg Dept Use Only); Complete Time: 02:10 08/08 01:29 Order name: XRAY Chest (1 view) la1 08/08 01:38 Order name: Head Brain Wo Cont CT la 08/08 04:36 Order name: Troponin I EDOH 08/08 04:36 Order name: Troponin I EDOH 08/08 01:29 Order name: EKG; Complete Time: 01:31 08/08 01:29 Order name: Cardiac monitoring; Complete Time: 08/08 01:29 Order name: EKG - Nurse/Tech; Complete Time: 08/08 01:29 Order name: IV Saline Lock; Complete Time: 08/08 01:29 Order name: Labs collected and sent; Complete Time: 08/08 01:29 Order name: O2 Per Protocol; Complete Time: 08/08 01:29 Order name: O2 Sat Monitoring; Complete Time: 08/08 03:05 Order name: Swallow Screen; Complete Time: 03:19 08/08 04:38 Order name: Heart Healthy EDOH EC:29 Rate is 76 beats/min. Rhythm is regular. Right axis deviation noted. IL interval is la1 normal. QRS interval is normal. QT interval is normal. No Q waves. T waves are Normal. No ST changes noted. Administered Medications: 03:19 Drug: Aspirin Chewable Tablet 324 mg Route: PO; jb4 04:00 Follow up: Response: No adverse reaction jb4 03:23 CANCELLED (Other Intervention Used): morphine 4 mg IVP once; RASS on ADMIN: Combtv4, la1 Very Agttd3, Agttd2, Rstlss1, AlertClm0, Drwsy-1, Lt Sdtn-2, Mod Sdtn-3, Dp Sdtn-4, UnArsble-5 03:25 Not Given (Patient Refused): Zofran 4 mg IVP once; over 2 minutes jb4 03:37 Drug: TORadol - Ketorolac 15 mg Route: IVP; Site: left hand; jb4 04:00 Follow up: Response: No adverse reaction; Pain is decreased jb4 Disposition: 09:17 Co-signature as Attending Physician, Luis Ramos MD I agree with the assessment and 4 plan of care. Disposition: 08/08/19 03:45 Hospitalization ordered by Timur Capps for Inpatient Admission. Preliminary diagnosis are Weakness, Paresthesia of skin, Chest pain, unspecified. - Bed requested for Telemetry/MedSurg (Inpatient). - Status is Inpatient Admission. jb4 - Condition is Stable. - Problem is new. - Symptoms are unchanged. UTI on Admission? No NIH Stroke Scale - NIH Stroke Score Date: 08/08/2019 Time: 03:05 Total Score = 3 1a. Level of Consciousness (LOC) - 0(Alert) 1b. Level of Consciousness (LOC) (Year \T\ Age) - 0(Both) 1c. LOC Commands (Open \T\ Closes Eyes/Recycling Collections Driver) - 0(Both) 2. Best Gaze (Lateral Gaze Paresis) - 0(Normal) 3. Visual Field Loss - 0(No visual loss) 4. Facial Palsy - 0(Normal) 5a. Left Arm: Motor (10-second hold) - 1(Drift) 5b. Right Arm: Motor (10-second hold) - 0(No drift) 6a. Left Leg: Motor (5-second hold - always test supine) - 1(Drift) 6b. Right Leg: Motor (5-second hold - always test supine) - 0(No drift) 7. Limb Ataxia (finger/nose \T\ heel/maurer - test with eyes open) - 0(Absent) 8. Sensory Loss (pinprick arms/legs/face) - 1(Mild to moderate loss) 9. Best Language: Aphasia (description/naming/reading) - 0(No aphasia) 10. Dysarthria (speech clarity - read or repeat words) - 0(Normal) 11. Extinction and Inattention (visual/tactile/auditory/spatial/personal) - 0(No abnormality) Initials: la1 Signatures: Dispatcher [employer] EDMS Parminder Hamilton, SERIALS LIBRARIAN-C SERIALS LIBRARIAN-Cla1 Iker Smith, RUTH RN jb4 Luis Ramos MD MD tw4 Corrections: (The following items were deleted from the chart) 03:23 03:19 morphine 4 mg IVP once; RASS on ADMIN: Combtv4, Very Agttd3, Agttd2, la1 Rstlss1, AlertClm0, Drwsy-1, Lt Sdtn-2, Mod Sdtn-3, Dp Sdtn-4, UnArsble-5 ordered. jb4 06:43 03:45 Hospitalization Ordered by Timur Capps MD for Inpatient Admission. jb4 Preliminary diagnosis is Weakness; Paresthesia of skin; Chest pain, unspecified. Bed requested for Telemetry/MedSurg (Inpatient). Status is Inpatient Admission. Condition is Stable. Problem is new. Symptoms are unchanged. UTI on Admission? No. la1
--- NOTE | 2019-08-08 03:46 | ER ---
Nurse's Notes [facility] Name: Adolph Keenan Age: 39 yrs Sex: Male : 1980 Arrival Date: 08/08/2019 Time: 01:22 Bed 6 Private MD: Diagnosis: Weakness;Paresthesia of skin;Chest pain, unspecified Presentation: 08/08 01:30 Presenting complaint: Patient states: I have been having chest pain for a week and jb4 tonight it just got worse. Transition of care: patient was not received from another setting of care. Onset of symptoms was July 31, 2019. Risk Assessment: Do you want to hurt yourself or someone else? Patient reports no desire to harm self or others. Initial Sepsis Screen: Does the patient meet any 2 criteria? No. Patient's initial sepsis screen is negative. Does the patient have a suspected source of infection? No. Patient's initial sepsis screen is negative. Care prior to arrival: None. 01:30 Method Of Arrival: Wheelchair jb4 01:30 Acuity: JOAQUIN 3 jb4 Historical: - Allergies: 01:31 No Known Allergies; jb4 - Home Meds: 01:31 Metformin Oral [Active]; jb4 - PMHx: 01:31 Diabetes - NIDDM; Hypertension; jb4 - PSHx: 01:31 Appendectomy; jb4 - Immunization history:: Adult Immunizations unknown. - Social history:: Smoking status: Patient/guardian denies using tobacco, Patient/guardian denies using alcohol, street drugs. - Ebola Screening: : No symptoms or risks identified at this time. Screenin:32 Abuse screen: Denies threats or abuse. Nutritional screening: No deficits noted. jb4 Tuberculosis screening: No symptoms or risk factors identified. Fall Risk None identified. 03:15 The patient has not been NPO before screening. The patient is alert, able to follow jb4 commands. The patient does not exhibit slurred or garbled speech The patient is not exhibiting difficulty speaking. The patient does not exhibit difficulty understanding words. The patient is able to swallow own secretions with no drooling or need for suction. Patient tolerated one teaspoon of water. No drooling, immediate coughing, gurgling, or clearing of the throat was noted. The patient tolerated 90mL of water. No drooling, immediate coughing, gurgling, or clearing of the throat was noted. The patient passed the bedside swallow screening. Oral medications may be given as ordered. Contact Physician for further diet orders. Provider notified of bedside swallow screening results: Parminder Hamilton DISPATCHER TOW TRUCK-C. Assessment: 01:32 General: Appears in no apparent distress. uncomfortable, Behavior is calm, cooperative, jb4 appropriate for age. Pain: Complains of pain in chest Pain does not radiate. Pain currently is 10 out of 10 on a pain scale. Quality of pain is described as pressure, Pain began 1 week ago. Neuro: Level of Consciousness is awake, alert, obeys commands, Oriented to person, place, time, situation, Kiln Burner Helper are weak on left Moves all extremities. Weakness in left hand(s) arm(s) leg(s) foot/feet Speech is normal, Facial symmetry appears normal, Pupils are PERRLA, PT reports stronger sensations to the right side of his body. reports that the left side feels more dull.. Cardiovascular: Heart tones S1 S2 present Patient's skin is warm and dry. Rhythm is sinus rhythm. Respiratory: Reports shortness of breath Airway is patent Respiratory effort is even, unlabored, Respiratory pattern is regular, symmetrical, Breath sounds are clear bilaterally. GI: No signs and/or symptoms were reported involving the gastrointestinal system. : No signs and/or symptoms were reported regarding the genitourinary system. EENT: No signs and/or symptoms were reported regarding the EENT system. Derm: Skin is intact, Skin is pink, warm \T\ dry. Musculoskeletal: Circulation, motion, and sensation intact. Range of motion: intact in all extremities. 02:16 Reassessment: Pt reports intermittent sharp chest pain. Provider notified. jb4 02:30 Reassessment: Patient appears in no apparent distress at this time. Patient and/or jb4 family updated on plan of care and expected duration. Pain level reassessed. Patient is alert, oriented x 3, equal unlabored respirations, skin warm/dry/pink. 03:30 Reassessment: Patient appears in no apparent distress at this time. Patient and/or jb4 family updated on plan of care and expected duration. Pain level reassessed. Patient is alert, oriented x 3, equal unlabored respirations, skin warm/dry/pink. Pt reports sharp chest pain 10/10, provider notified, see MAR for orders. 04:30 Reassessment: Patient appears in no apparent distress at this time. Patient and/or jb4 family updated on plan of care and expected duration. Pain level reassessed. Patient is alert, oriented x 3, equal unlabored respirations, skin warm/dry/pink. 04:59 Reassessment: Patient appears in no apparent distress at this time. Patient and/or jb4 family updated on plan of care and expected duration. Pain level reassessed. Patient is alert, oriented x 3, equal unlabored respirations, skin warm/dry/pink. PT reports pain decreased from 10/10 to 8/10 Patient states feeling better. 06:00 Reassessment: Patient appears in no apparent distress at this time. Patient and/or jb4 family updated on plan of care and expected duration. Pain level reassessed. Patient is alert, oriented x 3, equal unlabored respirations, skin warm/dry/pink. PT is sitting up in bed with his daughter next to him. appears comfortable. No s/s of pain or distress noted. 06:42 Reassessment: Patient appears in no apparent distress at this time. Patient and/or jb4 family updated on plan of care and expected duration. Pain level reassessed. Patient is alert, oriented x 3, equal unlabored respirations, skin warm/dry/pink. PT verbalized understanding of d/c and follow up instructions. D/c'ed by Dr. Capps. D/pedro from [facility]. Vital Signs: 01:31 BP 154 / 97; Pulse 85; Resp 14; Temp 98.1(O); Pulse Ox 99% on R/A; Weight 81.65 kg (R); jb4 Height 5 ft. 6 in. (167.64 cm) (R); Pain 10/10; 02:20 BP 136 / 99; Pulse 74; Resp 16; Pulse Ox 99% on R/A; jb4 03:45 BP 141 / 87; Pulse 70; Resp 20; Pulse Ox 100% on R/A; jb4 04:30 BP 144 / 81; Pulse 77; Resp 17; Pulse Ox 100% on R/A; jb4 06:00 BP 133 / 80; Pulse 89; Resp 17; Pulse Ox 100% ; jb4 01:31 Body Mass Index 29.05 (81.65 kg, 167.64 cm) jb4 NIH Stroke Scale Scores: 03:05 NIHSS Score: 3 la ED Course: 01:22 Patient arrived in ED. ds1 01:23 Iker Smith, RN is Primary Nurse. jb4 01:23 Parminder Hamilton FNP-C [facility]. la1 01:23 Luis Ramos MD is Attending Physician. la1 01:31 Triage completed. jb4 01:31 Arm band placed on left wrist. EKG completed in triage. Results shown to MD. jb4 01:32 Patient has correct armband on for positive identification. Placed in gown. Bed in low jb4 position. Call light in reach. Side rails up X 1. night monitor on. Pulse ox on. NIBP on. 01:32 Patient maintains SpO2 saturation greater than 95% on room air. jb4 01:42 Missed attempt(s): 22 gauge in right antecubital area. Bleeding controlled, band aid jb5 applied, catheter tip intact. 01:42 Inserted saline lock: 22 gauge in right hand, using aseptic technique. Blood collected. jb5 01:42 Basic Metabolic Panel Sent. jb5 01:42 CBC with Diff Sent. jb5 01:42 LFT's Sent. jb5 01:42 Magnesium Sent. jb5 01:42 NT PRO-BNP Sent. jb5 01:42 PT-INR Sent. jb5 02:15 XRAY Chest (1 view) In Process Unspecified. EDMS 02:15 Head Brain Wo Cont CT In Process Unspecified. EDMS 03:44 Timur Capps MD is Hospitalizing Provider. la1 06:42 No provider procedures requiring assistance completed. IV discontinued, intact, jb4 bleeding controlled, No redness/swelling at site. Pressure dressing applied. Administered Medications: 03:19 Drug: Aspirin Chewable Tablet 324 mg Route: PO; jb4 04:00 Follow up: Response: No adverse reaction jb4 03:23 CANCELLED (Other Intervention Used): morphine 4 mg IVP once; RASS on ADMIN: Combtv4, la1 Very Agttd3, Agttd2, Rstlss1, AlertClm0, Drwsy-1, Lt Sdtn-2, Mod Sdtn-3, Dp Sdtn-4, UnArsble-5 03:25 Not Given (Patient Refused): Zofran 4 mg IVP once; over 2 minutes jb4 03:37 Drug: TORadol - Ketorolac 15 mg Route: IVP; Site: left hand; jb4 04:00 Follow up: Response: No adverse reaction; Pain is decreased jb4 Outcome: 03:45 Decision to Hospitalize by Provider. la1 06:42 Discharged to home via wheelchair, with family. jb4 06:42 Condition: stable 06:42 Discharge instructions given to patient, Instructed on discharge instructions, follow up and referral plans. Demonstrated understanding of instructions, follow-up care. 06:43 Patient left the ED. jb4 NIH Stroke Scale - NIH Stroke Score Date: 08/08/2019 Time: 03:05 Total Score = 3 1a. Level of Consciousness (LOC) - 0(Alert) 1b. Level of Consciousness (LOC) (Year \T\ Age) - 0(Both) 1c. LOC Commands (Open \T\ Closes Eyes/Road Roller Operator) - 0(Both) 2. Best Gaze (Lateral Gaze Paresis) - 0(Normal) 3. Visual Field Loss - 0(No visual loss) 4. Facial Palsy - 0(Normal) 5a. Left Arm: Motor (10-second hold) - 1(Drift) 5b. Right Arm: Motor (10-second hold) - 0(No drift) 6a. Left Leg: Motor (5-second hold - always test supine) - 1(Drift) 6b. Right Leg: Motor (5-second hold - always test supine) - 0(No drift) 7. Limb Ataxia (finger/nose \T\ heel/maurer - test with eyes open) - 0(Absent) 8. Sensory Loss (pinprick arms/legs/face) - 1(Mild to moderate loss) 9. Best Language: Aphasia (description/naming/reading) - 0(No aphasia) 10. Dysarthria (speech clarity - read or repeat words) - 0(Normal) 11. Extinction and Inattention (visual/tactile/auditory/spatial/personal) - 0(No abnormality) Initials: la1 Signatures: Dispatcher [employer] [facility] Donny Raysa ds1 Parminder Hamilton, DISPATCHER TOW TRUCK-C DISPATCHER TOW TRUCK-Cla1 Iker Smith, RUTH RN jb4 Ayleen Green jb5 Corrections: (The following items were deleted from the chart) 01:48 01:32 Neuro: Level of Consciousness is awake, alert, obeys commands, Oriented jb4 to person, place, time, situation, jb4 48 01:32 Cardiovascular: Patient's skin is warm and dry. Rhythm is sinus rhythm [id number] 48 01:32 Respiratory: Reports shortness of breath Airway is patent Respiratory jb4 effort is even, unlabored, Respiratory pattern is regular, symmetrical, jb4
[2019-08-08] MEDS ORDERED: ALPRAZOLAM 0.25 MG TABLET PO PRN (04:34)
[2019-08-08] MEDS ORDERED: ACETAMINOPHEN 500 MG TAB PO PRN (04:34)
--- NOTE | 2019-08-08 06:35 | P.SSS ---
Patient History Date of Service: 08/08/19 Reason for admission: Chest pain History of Present Illness: Patient is a 39-year-old gentleman who came to the hospital with chest discomfort and right-sided weakness. Patient's symptoms have started about a week ago. Patient has had extensive workup done in the hospital. Patient had MRI of the head and neck. These were unremarkable. Patient has had extensive cardiac workup including stress test and then a heart catheterization which have all been unremarkable. Patient symptoms are improving. He is post to see his chief scientific officer. He was given morphine overnight for his pain. Anticipate discharge home later today. Allergies No Known Allergies Allergy (Unverified 09/18/12 15:02) Home Medications: NK [No Home Meds] 03/03/19 - Past Medical/Surgical History Diabetic: Yes -: HTN -: Type 2 DM -: Tonsillectomy - Social History Smoking Status: Former smoker Alcohol use: No CD- Drugs: No Caffeine use: No Review of Systems 10-point ROS is otherwise unremarkable Physical Examination - Vital Signs Temperature: 98 F Blood Pressure: 140/80 Pulse: 88 Respirations: 18 Pulse Ox (%): 98 - Physical Exam General: Alert, In no apparent distress, Oriented x3 HEENT: Atraumatic, PERRLA, Mucous membr. moist/pink, EOMI, Sclerae nonicteric Neck: Supple, 2+ carotid pulse no bruit, No LAD, Without JVD or thyroid abnormality Respiratory: Clear to auscultation bilaterally, Normal air movement Cardiovascular: Regular rate/rhythm, Normal S1 S2, No murmurs Gastrointestinal: Normal bowel sounds, Soft and benign, Non-distended, No tenderness Musculoskeletal: No clubbing, No swelling, No tenderness Integumentary: No rashes Neurological: Normal gait, Normal speech, Normal strength at 5/5 x4 extr, Normal tone, Sensation intact, Cranial nerves 3-12 intact, Normal affect Lymphatics: No axilla or inguinal lymphadenopathy - Studies Laboratory Data (last 24 hrs) 08/08/19 01:38: PT 10.6, INR 0.89 08/08/19 01:38: WBC 9.2, Hgb 14.9, Hct 43.4, Plt Count 284 08/08/19 01:38: Sodium 140, Potassium 3.9, BUN 7, Creatinine 0.99, Glucose 112 H , Magnesium 2.0, Total Bilirubin 0.3, AST 20, ALT 38, Alkaline Phosphatase 121 H Treatment Summary: Patient had troponins which were negative. EKG was unremarkable. Patient has had extensive workup recently and does not need any further workup at this time. Patient stable for discharge home with outpatient follow-up. Continue his home blood pressure and diabetic medications. - Disposition Discharge Date: 08/08/19 Disposition: ROUTINE DISCHARGE Condition: GOOD Patient Discharge Instructions: OK to DC IV and DC home. Follow-up with PCP in 1-2 weeks. Call me at [phone] if any questions regarding hospital stay. Return to the ER if severeity of symptoms increases Diet: AHA Activity: Fall precautions Critical Care: No Time Spent Managing Pts Care (In Minutes): 45
[2019-08-08 07:03] VITALS: BP 140/80; TEMP 98
[2019-08-08 07:26] VITALS: O2SAT 100
--- NOTE | 2019-08-08 07:38 | EKG ---
Test Date: 2019-08-08 Test Time: 01:27:27 Lawn Care Worker: JOSE MEASUREMENT RESULTS: Intervals: Rate: 76 [place]: 132 QRSD: 80 QT: 362 QTc: 407 [place]: P: 48 [place]: 132 QRS: 90 T: 48 INTERPRETIVE STATEMENTS: Normal sinus rhythm Rightward axis Borderline ECG Compared to ECG 03/06/2019 12:02:59 Right-axis deviation now present Sinus arrhythmia no longer present Electronically Signed On 08-08-19 07:37:28 PAIN MANAGEMENT PHYSICIAN by Gregg Johnson
--- NOTE | 2019-08-08 07:46 | RAD REPORT ---
EXAM DESCRIPTION: Fran Single View08/08/2019 2:20 am CLINICAL HISTORY: Chest pain COMPARISON: 2019 FINDINGS: The lungs appear clear of acute infiltrate. The heart is normal size IMPRESSION: No acute abnormalities displayed
[2019-08-08] MEDS ORDERED: ASPIRIN EC 81 MG TAB PO SCH (09:00)
--- NOTE | 2019-08-09 13:27 | RAD REPORT ---
EXAM DESCRIPTION: CT - Head Brain Wo Cont - 08/08/2019 5:52 am CLINICAL HISTORY: WEAKNESS COMPARISON: CT head March 03, 2019 TECHNIQUE: Multiple helical axial tomographic images were obtained of the head without intravenous c ontrast. This exam was performed according to our departmental dose-optimization program, which inclu benita automated exposure control, adjustment of the mA and/or kV according to patient size and/or use o f iterative reconstruction technique. FINDINGS: There is no acute intracranial hemorrhage. No mass. No midline shift. No ventriculomegaly. Sarkar-white matter differentiation is maintained. Moderate left maxillary sinus mucosal thickening is present. Mastoid air cells and middle ear spaces are clear. Orbits and orbital contents are unremarkable. Osseous structures are unremarkable. Surrounding soft tissues are unremarkable. IMPRESSION: No acute intracranial process. Electronically signed by: Zachary Puga MD 08/08/2019 2:22 AM AIR CONDITIONING COIL ASSEMBLER Due to temporary technical issues with the PACS/Fluency reporting system, reports are being signed by the in house radiologist as a courtesy to ensure prompt reporting. The interpreting radiologist is f ully responsible for the content of the report.
== END 2019-08-08 06:00 | disposition home or self-care (01) ==
LOC: ER 01:21 → ERHOLD 04:40
PROVIDERS: ADMIT Hospitalist; ATTEND Hospitalist
DX: R07.9 Chest pain, unspecified (principal); I10 Essential (primary) hypertension; E11.9 Type 2 diabetes mellitus without complications; Z87.891 Personal history of nicotine dependence
CPT/HCPCS: 36415; 70450; 71045; 80048; 80076; 83735; 83880; 84484; 85025; 85610; 93005; 96374; 99285; G0378; J2405

== ENCOUNTER 2019-08-09 21:08 | Emergency (ER) | payer SELFPAY ==
[2019-08-09] MEDS ORDERED: ACETAMINOPHEN 500 MG TAB ONE (21:57)
--- NOTE | 2019-08-09 22:39 | RAD REPORT ---
EXAM DESCRIPTION: Fran Single View08/09/2019 10:22 pm CLINICAL HISTORY: Chest pain COMPARISON: August 08, 2019 FINDINGS: The lungs appear clear of acute infiltrate. The heart is normal size IMPRESSION: No acute abnormalities displayed
[2019-08-09 23:16] LABS: Absolute Lymphocytes (CBC) 2.7 K/uL (0.7-4.9); Basophils % 0.7 % (0-1.3); Hematocrit 45.8 % (39.6-49.0); Lymphocytes % 22.7 % (15.3-44.8); MPV 8.9 fL (7.6-11.3); RBC Red Blood Cell Count 5.37 M/uL (4.33-5.43)
[2019-08-09 23:25] LABS: Protime INR 1.08
[2019-08-09 23:29] LABS: ALT/SGPT 37 U/L (12-78); AST/SGOT 18 U/L (15-37); Albumin 3.8 g/dL (3.4-5.0); Alkaline Phosphatase 98 U/L (45-117); BUN Blood Urea Nitrogen 9 mg/dL (7-18); Bicarbonate 26 mmol/L (21-32); Bilirubin Direct 0.1 mg/dL (0-0.2); Bilirubin Total 0.5 mg/dL (0.2-1.0); Glucose Level 101 mg/dL (74-106); Magnesium 2.2 mg/dL (1.8-2.4); NT PRO-BNP 34 pg/mL (<125); Potassium 3.9 mmol/L (3.5-5.1); Protein, Total 7.8 g/dL (6.4-8.2); Sodium Level 139 mmol/L (136-145); Troponin (Emerg Dept Use Only) < 0.02 ng/mL (0.0-0.045)
[2019-08-10 00:49] LABS: Barbiturates NEGATIVE (NEGATIVE); Benzodiazepines NEGATIVE (NEGATIVE); Cocaine NEGATIVE (NEGATIVE); METHAMPHETAM NEGATIVE (NEGATIVE); Methadone NEGATIVE (NEGATIVE); Opiates NEGATIVE (NEGATIVE); Phencyclidine NEGATIVE (NEGATIVE); THC Cannibis NEGATIVE (NEGATIVE)
[2019-08-10 01:35] LABS: Urine Blood TRACE (NEG); Urine Glucose NEGATIVE (NEG); Urine Protein NEGATIVE (NEG); Urine Specific Gravity 1.015 (1.005-1.030)
[2019-08-10] MEDS ORDERED: KETOROLAC 30 MG/ML INJ ONE (02:06)
--- NOTE | 2019-08-10 02:21 | EDPHYS ---
Physician Documentation [facility] Name: Adolph Kenean Age: 39 yrs Sex: Male : 1980 Arrival Date: 08/09/2019 Time: 21:09 Bed 7 Private MD: ED Physician Randy Staley HPI: 08/10 02:05 This 39 yrs old Male presents to ER via EMS with complaints of Chest Pain. wa 02:05 The patient or guardian reports chest pain that is located primarily in the anterior wa aspect of left upper chest and left breast. The pain does not radiate. Associated signs and symptoms: The patient has no apparent associated signs or symptoms. The chest pain is described as aching. Duration: The patient or guardian reports a single episode, that is still ongoing, and worsening. Modifying factors: The symptoms are alleviated by nothing. the symptoms are aggravated by movement, palpation of area. Severity of pain: At its worst the pain was moderate in the emergency department the pain is unchanged. The patient has experienced a previous episode, just d/c'd from here. The patient has been recently seen by a physician: with similar presenting complaints. 39 yo M. c/o chest pain x 3 days. denies SOB. states pain has been constant the entire time x 3 days. seen here with negative work up. states pain did not improve while he was here and has not improved since he went home. denies h/o same in the past. Historical: - Allergies: 08/09 21:15 No Known Allergies; ak1 - Home Meds: 21:15 Metformin Oral [Active]; ak1 - PMHx: 21:15 Diabetes - NIDDM; Hypertension; ak1 - PSHx: 21:15 Appendectomy; ak1 - Immunization history:: Adult Immunizations unknown. - Social history:: Smoking status: unknown. - Ebola Screening: : No symptoms or risks identified at this time. - Family history:: not pertinent. - Hospitalizations: : No recent hospitalization is reported. ROS: 08/10 02:09 Constitutional: Negative for fever, chills, and weight loss, Eyes: Negative for injury, wa pain, redness, and discharge, ENT: Negative for injury, pain, and discharge, Neck: Negative for injury, pain, and swelling, Abdomen/GI: Negative for abdominal pain, nausea, vomiting, diarrhea, and constipation, Back: Negative for injury and pain, : Negative for injury, bleeding, discharge, and swelling, MS/Extremity: Negative for injury and deformity, Skin: Negative for injury, rash, and discoloration, Neuro: Negative for headache, weakness, numbness, tingling, and seizure, Psych: Negative for depression, anxiety, suicide ideation, homicidal ideation, and hallucinations. Cardiovascular: Positive for chest pain, Negative for edema, orthopnea, palpitations, paroxysmal nocturnal dyspnea, acute changes. Respiratory: Negative for cough, shortness of breath. All other systems are negative. Exam: 02:10 Constitutional: This is a well developed, well nourished patient who is awake, alert, wa and in no acute distress. Head/Face: Normocephalic, atraumatic. Eyes: Pupils equal round and reactive to light, extra-ocular motions intact. Lids and lashes normal. Conjunctiva and sclera are non-icteric and not injected. Cornea within normal limits. Periorbital areas with no swelling, redness, or edema. ENT: Nares patent. No nasal discharge, no septal abnormalities noted. Tympanic membranes are normal and external auditory canals are clear. Oropharynx with no redness, swelling, or masses, exudates, or evidence of obstruction, uvula midline. Mucous membranes moist. Neck: Trachea midline, no thyromegaly or masses palpated, and no cervical lymphadenopathy. Supple, full range of motion without nuchal rigidity, or vertebral point tenderness. No Meningismus. Abdomen/GI: Soft, non-tender, with normal bowel sounds. No distension or tympany. No guarding or rebound. No evidence of tenderness throughout. Back: No spinal tenderness. No costovertebral tenderness. Full range of motion. Skin: Warm, dry with normal turgor. Normal color with no rashes, no lesions, and no evidence of cellulitis. MS/ Extremity: Pulses equal, no cyanosis. Neurovascular intact. Full, normal range of motion. Neuro: Awake and alert, GCS 15, oriented to person, place, time, and situation. Cranial nerves II-XII grossly intact. Motor strength 5/5 in all extremities. Sensory grossly intact. Cerebellar exam normal. Normal gait. Psych: Awake, alert, with orientation to person, place and time. Behavior, mood, and affect are within normal limits. 02:10 Chest/axilla: Inspection: normal, Palpation: tenderness, of the anterior aspect of left upper chest and left breast. 02:10 Cardiovascular: Rate: normal, Rhythm: regular, Pulses: no pulse deficits are appreciated, Heart sounds: normal, Edema: is not appreciated, JVD: is not appreciated. Vital Signs: 08/09 21:15 BP 119 / 62; Pulse 76; Resp 16; Temp 98.1; Pulse Ox 97% on R/A; Weight 99.79 kg (R); ak1 Height 5 ft. 8 in. (172.72 cm) (R); Pain 05/10; 22:45 BP 114 / 68; Pulse 73; Resp 13; Temp 98.2; Pulse Ox 100% on R/A; ak1 23:57 BP 140 / 66; Pulse 68; Resp 17; Temp 98.2; Pulse Ox 97% on R/A; ak1 08/10 00:28 BP 116 / 90; Pulse 64; Resp 16; Temp 98.3; Pulse Ox 98% on R/A; ak1 01:55 BP 127 / 87; Pulse 57; Resp 16; Temp 98.3; Pulse Ox 99% on R/A; ak1 02:14 BP 108 / 77; Pulse 62; Resp 19 S; Pulse Ox 98% on R/A; cc3 08/09 21:15 Body Mass Index 33.45 (99.79 kg, 172.72 cm) ak1 MDM: 08/09 21:19 Patient medically screened. 08/10 02:11 Differential diagnosis: abnormal EKG, acute myocardial infarction, acute pericarditis, ks coronary artery disease chest wall pain, pulmonary embolus, stable angina, thoracic aortic disection, unstable angina, pt worked up within the past 2 days. states on-going chest pain, unabated x 3 days. will repeat EKG. check labs and CT chest to r/o PE. will reassess. Data reviewed: vital signs, nurses notes. Test interpretation: by ED physician or midlevel provider: EKG. Interp by me: HR 72. nml sinus. nml axis. nml intervals, nml QRS. nml T waves. nml EKG. 02:13 Test interpretation: by ED physician or midlevel provider:. ks 02:14 Test interpretation: by ED physician or midlevel provider: labs noted for WBC 12.1. wa otherwise nml labs including troponin and d-dimer. CXR and CT chest read as negative. . 02:15 ED course: received ASA. received toradol, and tylenol. pt still with residual pain. I wa do not believe pt's symptoms cardiac with 3 days of uabated chest pain with nml EKG, labs. will d/c with pain meds and close f/u. repeat EKG at time of d/c unchanged. normal. 08/09 21:42 Order name: Basic Metabolic Panel; Complete Time: 23:57 ks 08/09 21:42 Order name: CBC with Diff; Complete Time: 23:57 ks 08/09 21:42 Order name: LFT's; Complete Time: 23:57 ks 08/09 21:42 Order name: Magnesium; Complete Time: 23:57 ks 08/09 21:42 Order name: NT PRO-BNP; Complete Time: 23:57 ks 08/09 21:42 Order name: PT-INR; Complete Time: 23:57 ks 08/09 21:42 Order name: Troponin (emerg Dept Use Only); Complete Time: 23:57 ks 08/09 21:42 Order name: XRAY Chest (1 view); Complete Time: 22:40 ks 08/09 21:42 Order name: D-Dimer; Complete Time: 23:57 ks 08/09 21:43 Order name: UDS; Complete Time: 01:19 ks 08/09 23:58 Order name: CT Chest W/ Con ks 08/10 00:28 Order name: Urine Dipstick--Ancillary (enter results); Complete Time: 02:01 [facility] 08/09 21:42 Order name: EKG; Complete Time: 21:44 ks 08/09 21:42 Order name: Cardiac monitoring; Complete Time: 21:48 ks 08/09 21:42 Order name: EKG - Nurse/Tech; Complete Time: 21:48 ks 08/09 21:42 Order name: IV Saline Lock; Complete Time: 22:03 ks 08/09 21:42 Order name: Labs collected and sent; Complete Time: 22:03 ks 08/09 21:42 Order name: O2 Per Protocol; Complete Time: 21:48 ks 08/09 21:42 Order name: O2 Sat Monitoring; Complete Time: 21:48 ks 08/10 02:05 Order name: EKG - Nurse/Tech; Complete Time: 02:16 ks Administered Medications: 08/09 21:48 Not Given (given by EMS): Aspirin Chewable Tablet 324 mg PO once; 81 mg tablets x 4 ak1 22:03 Drug: Tylenol 1000 mg Route: PO; ak1 23:17 Follow up: Response: No adverse reaction ak1 08/10 02:00 Drug: TORadol 30 mg Route: IVP; Site: left antecubital; cc3 02:16 Follow up: Response: No adverse reaction ak1 Disposition: 08/10/19 02:20 Discharged to Home. Impression: acute left-sided chest pain. - Condition is Stable. - Discharge Instructions: Nonspecific Chest Pain, Nude-on-Fxlr. - Prescriptions for Ibuprofen 600 mg Oral Tablet - take 1 tablet by ORAL route every 8 hours As needed take with food; 20 tablet. - Medication Reconciliation Form, Thank You Letter, Antibiotic Education, Prescription Opioid Use form. - Follow up: Frederick Bustamante MD; When: 1 - 2 days; Reason: Recheck today's complaints. - Problem is new. - Symptoms have improved. - Notes: follow up with your doctor or the primary care doctor prescribed you. return for any concerns you may have Signatures: Dispatcher [employer] Anastasia Lombardo RN RN ak1 Randy Staley MD MD wa Cordel, Charlene cc3 Corrections: (The following items were deleted from the chart) 02:49 02:20 08/10/2019 02:20 Discharged to Home. Impression: acute left-sided chest pain. ak1 Condition is Stable. Forms are Medication Reconciliation Form, Thank You Letter, Antibiotic Education, Prescription Opioid Use. Follow up: Frederick Bustamante; When: 1 - 2 days; Reason: Recheck today's complaints. Problem is new. Symptoms have improved. ks
--- NOTE | 2019-08-10 02:21 | ER ---
Nurse's Notes [facility] Name: Adolph Keenan Age: 39 yrs Sex: Male : 1980 Arrival Date: 08/09/2019 Time: 21:09 Bed 7 Private MD: Diagnosis: acute left-sided chest pain Presentation: 08/09 21:09 Presenting complaint: EMS states: pt was seen in ER 08/08/19 for same s/s. pt c/o chest ak1 pain. pt given 324 aspirin, 1 nitro in route. Transition of care: patient was not received from another setting of care. Onset of symptoms is unknown. Risk Assessment: Do you want to hurt yourself or someone else? Patient reports no desire to harm self or others. Initial Sepsis Screen: Does the patient meet any 2 criteria? No. Patient's initial sepsis screen is negative. Does the patient have a suspected source of infection? No. Patient's initial sepsis screen is negative. Care prior to arrival: 20g IV to left forearm. 21:09 Method Of Arrival: EMS: [facility] ak1 21:09 Acuity: JOAQUIN 3 ak1 Triage Assessment: 21:15 General: Appears in no apparent distress. Behavior is cooperative, anxious. Pain: ak1 Complains of pain in chest. EENT: No signs and/or symptoms were reported regarding the EENT system. Neuro: Level of Consciousness is awake, alert, obeys commands, Oriented to person, place, time, situation, Appropriate for age Moves all extremities. Full function Speech is normal. Cardiovascular: Reports chest pain, Heart tones S1 S2 present. Respiratory: Airway is patent Respiratory effort is even, unlabored, Respiratory pattern is regular, Breath sounds are clear bilaterally. GI: No signs and/or symptoms were reported involving the gastrointestinal system. : No signs and/or symptoms were reported regarding the genitourinary system. Derm: No signs and/or symptoms reported regarding the dermatologic system. Musculoskeletal: No signs and/or symptoms reported regarding the musculoskeletal system. Historical: - Allergies: 21:15 No Known Allergies; ak1 - Home Meds: 21:15 Metformin Oral [Active]; ak1 - PMHx: 21:15 Diabetes - NIDDM; Hypertension; ak1 - PSHx: 21:15 Appendectomy; ak1 - Immunization history:: Adult Immunizations unknown. - Social history:: Smoking status: unknown. - Ebola Screening: : No symptoms or risks identified at this time. - Family history:: not pertinent. - Hospitalizations: : No recent hospitalization is reported. Screenin:18 Abuse screen: Denies threats or abuse. Denies injuries from another. Nutritional ak1 screening: No deficits noted. Tuberculosis screening: No symptoms or risk factors identified. Fall Risk None identified. Assessment: 21:17 Reassessment: pt was seen in ER 08/08/19 with same s/s. pt was admitted for 6 hour ak1 observation by Dr. Capps and discharged from the ER. pt missed his probation date, requested work note for which Dr. Capps provided. Dr. Capps discharged pt with metformin for control of type 2 diabetes. 21:18 Reassessment: pt with hx of left leg numbness for which pt has started using a cane. pt ak1 has hx of bilateral arm numbness from prior visits. . 21:20 Pain: Pain does not radiate. Pain began 1 hour ago. ak1 22:42 Reassessment: lab at bedside for recollect of labs . ak1 22:44 Reassessment: pt informed of wait for lab results. pt given urinal with instructions of ak1 need for urian sample. pt resp even, unlabored. pt with friends at bedside. General: Appears in no apparent distress. Behavior is cooperative. 08/10 00:11 Reassessment: Patient appears in no apparent distress at this time. No changes from ak1 previously documented assessment. Patient and/or family updated on plan of care and expected duration. Pain level reassessed. Patient is alert, oriented x 3, equal unlabored respirations, skin warm/dry/pink. pt informed again of need for urine sample. Patient denies pain at this time. Patient states symptoms have improved. 02:15 Reassessment: Patient appears in no apparent distress at this time. Patient and/or cc3 family updated on plan of care and expected duration. Pain level reassessed. Patient is alert, oriented x 3, equal unlabored respirations, skin warm/dry/pink. Vital Signs: 08/09 21:15 BP 119 / 62; Pulse 76; Resp 16; Temp 98.1; Pulse Ox 97% on R/A; Weight 99.79 kg (R); ak1 Height 5 ft. 8 in. (172.72 cm) (R); Pain 05/10; 22:45 BP 114 / 68; Pulse 73; Resp 13; Temp 98.2; Pulse Ox 100% on R/A; ak1 23:57 BP 140 / 66; Pulse 68; Resp 17; Temp 98.2; Pulse Ox 97% on R/A; ak1 08/10 00:28 BP 116 / 90; Pulse 64; Resp 16; Temp 98.3; Pulse Ox 98% on R/A; ak1 01:55 BP 127 / 87; Pulse 57; Resp 16; Temp 98.3; Pulse Ox 99% on R/A; ak1 02:14 BP 108 / 77; Pulse 62; Resp 19 S; Pulse Ox 98% on R/A; cc3 08/09 21:15 Body Mass Index 33.45 (99.79 kg, 172.72 cm) ak1 ED Course: 08/09 21:09 Patient arrived in ED. ak1 21:14 Triage completed. ak1 21:15 Arm band placed on Patient placed in an exam room, on a stretcher, on campus monitor, ak1 on pulse oximetry, Patient notified of wait time. EKG completed in triage. Results shown to MD. 21:18 Patient maintains SpO2 saturation greater than 95% on room air. ak1 21:19 Randy Staley MD is Attending Physician. wa 21:19 Patient has correct armband on for positive identification. security monitor on. Pulse ak1 ox on. NIBP on. 21:48 Anastasia Moran, RN is Primary Nurse. ak1 22:23 XRAY Chest (1 view) In Process Unspecified. EDMS 08/10 00:28 UDS Sent. ak1 01:02 CT Chest W/ Con In Process Unspecified. EDMS 02:18 Frederick Bustamante MD is Referral Physician. wa 02:26 No provider procedures requiring assistance completed. IV discontinued, intact, ak1 bleeding controlled, No redness/swelling at site. Pressure dressing applied. Administered Medications: 08/09 21:48 Not Given (given by EMS): Aspirin Chewable Tablet 324 mg PO once; 81 mg tablets x 4 ak1 22:03 Drug: Tylenol 1000 mg Route: PO; ak1 23:17 Follow up: Response: No adverse reaction ak1 08/10 02:00 Drug: TORadol 30 mg Route: IVP; Site: left antecubital; cc3 02:16 Follow up: Response: No adverse reaction ak1 Outcome: 02:20 Discharge ordered by . jeremiah 02:26 Discharged to home ambulatory, with family. ak1 02:26 Condition: stable 02:26 Discharge instructions given to patient, family, Instructed on discharge instructions, follow up and referral plans. medication usage, Demonstrated understanding of instructions, follow-up care, medications, Prescriptions given X 1. 02:49 Patient left the ED. ak1 Signatures: Dispatcher [employer] Anastasia Lombardo RN RN ak1 Randy Staley MD MD wa Cordel, Charlene cc3
[2019-08-10 03:02] VITALS: TEMP 98.3
[2019-08-10 03:05] VITALS: BP 108/77; O2SAT 98
--- NOTE | 2019-08-10 06:01 | EKG ---
Test Date: 2019-08-09 Test Time: 21:14:03 Color Laboratory Technician: MARY MEASUREMENT RESULTS: Intervals: Rate: 72 VT: 132 QRSD: 76 QT: 380 QTc: 416 [place]: P: 40 VT: 132 QRS: 61 T: 45 INTERPRETIVE STATEMENTS: Normal sinus rhythm Normal ECG Compared to ECG 08/08/2019 01:27:27 Right-axis deviation no longer present Electronically Signed On 08-10-19 06:00:37 ADMINISTRATIVE PERSONAL ASSISTANT by Gregg Johnson
--- NOTE | 2019-08-10 10:55 | RAD REPORT ---
EXAM DESCRIPTION: CT - Thorax W/ Con - 08/10/2019 5:57 am CLINICAL HISTORY: Chest pain. COMPARISON: None. TECHNIQUE: Axial CT imaging of the chest performed utilizing intravenous contrast. Reformatted coron al and sagittal images obtained. This exam was performed according to our departmental dose-optimization program which includes automa jesse exposure control, adjustment of the mA and/or kV according to patient size and/or use of iterativ e reconstruction technique FINDINGS: HEART/GREAT VESSELS: Heart is normal in size. Normal caliber thoracic aorta and main pulm onary artery. MEDIASTINUM AND CYRUS: No adenopathy. Normal central airways and esophagus. LUNGS/PLEURA: Lungs and pleural spaces are clear. No pneumothorax. CHEST WALL/SOFT TISSUES: Unremarkable imaged thyroid. No axillary lymphadenopathy. Intact sternum. U nremarkable thoracic spine. UPPER ABDOMEN: Marked fatty liver infiltration. Included gallbladder, spleen, pancreas, adrenal glan ds, superior poles the kidneys appear normal. Included bowel is unremarkable. IMPRESSION: 1. No acute cardiopulmonary finding. 2. Fatty liver infiltration. Electronically signed by: Susu Smith DO 08/10/2019 1:11 AM INFORMATION CODER Due to temporary technical issues with the PACS/Fluency reporting system, reports are being signed by the in house radiologist as a courtesy to ensure prompt reporting. The interpreting radiologist is f ully responsible for the content of the report.
--- NOTE | 2019-08-10 13:27 | EKG ---
Test Date: 2019-08-10 Test Time: 02:14:04 Manager Travel: RUBEN MEASUREMENT RESULTS: Intervals: Rate: 60 SD: 142 QRSD: 74 QT: 404 QTc: 404 [place]: P: 12 SD: 142 QRS: 65 T: 39 INTERPRETIVE STATEMENTS: Normal sinus rhythm Normal ECG Compared to ECG 08/09/2019 21:14:03 No significant changes Electronically Signed On 08-10-19 13:26:47 SENIOR CHEMICAL PROCESS ENGINEER by Gregg Johnson
== END 2019-08-10 02:49 | disposition home or self-care (01) ==
LOC: ER 21:08
DX: R07.9 Chest pain, unspecified (principal); I10 Essential (primary) hypertension; E11.9 Type 2 diabetes mellitus without complications
CPT/HCPCS: 36415; 71045; 71260; 80048; 80076; 80307; 81003; 83735; 83880; 84484; 85025; 85379; 85610; 93005; 96374; 99285; Q9967

== ENCOUNTER 2024-11-12 23:18 | Emergency (ER) | payer SELFPAY ==
[2024-11-13 00:52] LABS: Absolute Eosinophils 0.5 K/uL (0-0.5); Absolute Lymphocytes (CBC) 2.3 K/uL (0.7-4.9); Absolute Monocytes 0.7 K/uL (0.1-1.3); Absolute Neutrophil 4.2 K/uL (1.8-8.0); Basophils % 0.4 % (0-1.3); Hematocrit 44.9 % (39.6-49.0); Hemoglobin 15.3 g/dL (13.6-17.9); Lymphocytes % 30.4 % (15.3-44.8); MCHC 34.2 g/dL (32.0-36.0); MCV 87.8 fL (80-100); Monocytes % 8.8 % (3.3-12.3); Neutrophils % 54.4 % (41.7-73.7); Nucleated Red Blood Cells % 0.1 % (0-0); Platelets 297 thou/uL (152-406); RBC Red Blood Cell Count 5.12 M/uL (4.33-5.43); Red Cell Distribution Width 13.7 % (12.1-15.2)
[2024-11-13 00:56] LABS: Sqamous Epithelial <5 /HPF (None Seen); Urine Bacteria None Seen /HPF (<20); Urine Bilirubin NEGATIVE (Negative); Urine Blood Trace (Negative); Urine Clarity Clear (Clear); Urine Color Light-Yellow (Yellow); Urine Culture Reflex Order NOT NEEDED; Urine Glucose NEGATIVE (Negative); Urine Ketones NEGATIVE (Negative); Urine Micro Reflex YN NO BILL MICROSCOPIC; Urine Mucus Slight /HPF (None Seen); Urine Nitrite NEGATIVE (Negative); Urine Protein NEGATIVE (Negative); Urine RBC <5 /HPF (None Seen); Urine Urobilinogen Normal (Normal); Urine WBC <5 /HPF (<5); Urine pH 5.5 (5.0-7.0)
[2024-11-13 01:01] LABS: Albumin 3.3 g/dL (3.4-5.0); Albumin/Globulin Ratio 0.8 (1.1-1.8); Anion Gap 10.2 mEq/L (5.0-15.0); Bilirubin Total 0.4 mg/dL (0.2-1.0); Globulin 3.9 g/dL (2.3-3.5); Potassium 4.2 mEq/L (3.5-5.1); Protein, Total 7.2 g/dL (6.4-8.2)
[2024-11-13] MEDS ORDERED: ONDANSETRON 4 MG/2 ML VIAL ONE (01:06)
[2024-11-13] MEDS ORDERED: NA CHLORIDE 0.9% 1,000 ML ONE (01:07)
[2024-11-13] MEDS ORDERED: MORPHINE 4 MG/ML SYR ONE (01:07)
[2024-11-13 01:13] LABS: Influenza A Ag Negative; Influenza B Ag Negative; SARS-CoV-2 Antigen Rapid Res Negative (Negative)
--- NOTE | 2024-11-13 03:07 | RAD REPORT ---
EXAM DESCRIPTION: Abdomen Pelvis W Contrast RadLex: CT ABDOMEN PELVIS WITH IV CONTRAST CLINICAL HISTORY: 44 years Male; ABD PAIN; IV ONLY TECHNIQUE: CT of the abdomen and pelvis [with] intravenous contrast. All CT scans at this facility use dose modulation, iterative reconstruction, and/or weight based dosi ng when appropriate to reduce radiation dose to as low as reasonably achievable. COMPARISON: None. FINDINGS: Lower thorax: Lung bases are clear Abdomen: Stomach: Within normal limits Liver: No focal lesions. No intrahepatic ductal distention. Gallbladder: Nondistended Pancreas: Within normal limits Spleen: Within normal limits Right kidney: No hydronephrosis. 2 mm renal stone. Left kidney: No hydronephrosis. No focal lesion. Adrenal glands: Within normal limits Vascular structures: Within normal limits Nodes: No lymphadenopathy by size criteria Pelvis: Small bowel: No significant distention. Appendix: Not visualized. Colon: No distention or acute pericolonic edema. Colonic diverticulosis. Peritoneum: No free intraperitoneal fluid or air. Bones: No acute bone findings. Bladder: Unremarkable. Reproductive organs: No acute findings. IMPRESSION: 1. No acute abdominopelvic findings. 2. Right-sided nephrolithiasis. No hydronephrosis. 3. Colonic diverticulosis without diverticulitis. Electronically signed by: Frank Vargas MD 11/13/2024 03:00 AM CDT TYG Due to temporary technical issues with the PACS/PharmMD reporting system, reports are being sandy d by the in-house radiologist without review as a courtesy to ensure prompt reporting the interpreting radiologist is fully responsible for the content of the report. Transcribed Date/Time: 11/13/2024 3:07 AM
--- NOTE | 2024-11-13 03:19 | ER ---
Nurse's Notes [facility] Name: Adolph Keenan Age: 44 yrs Sex: Male : 1980 Arrival Date: 11/12/2024 Time: 23:18 Bed 13 Private MD: Diagnosis: Abdominal pain, unspecified Presentation: 11/13 00:19 Chief complaint: Patient states: abdominal pain, nausea, vomiting and blurry vision X4 lg3 days. Coronavirus screen: Client denies travel out of the [place] in the last 14 days. At this time, the client does not indicate any symptoms associated with coronavirus-19. Ebola Screen: No symptoms or risks identified at this time. Initial Sepsis Screen: Does the patient meet any 2 criteria? No. Patient's initial sepsis screen is negative. Does the patient have a suspected source of infection? No. Patient's initial sepsis screen is negative. Risk Assessment: Do you want to hurt yourself or someone else? Patient reports no desire to harm self or others. Onset of symptoms was November 10, 2024. 00:19 Method Of Arrival: Ambulatory lg3 00:19 Acuity: JOAQUIN 3 lg3 Triage Assessment: 00:21 General: Appears in no apparent distress. uncomfortable, Behavior is calm, cooperative. lg3 Pain: Complains of pain in abdomen Pain currently is 10 out of 10 on a pain scale. EENT: No deficits noted. No signs and/or symptoms were reported regarding the EENT system. Neuro: No deficits noted. Alvarado Agitation-Sedation Scale (RASS): 0 - Alert and Calm Level of Consciousness is awake, alert, obeys commands, Oriented to person, place, time, situation. Cardiovascular: No deficits noted. Denies chest pain, shortness of breath, Capillary refill < 3 seconds Clubbing of nail beds is absent JVD is absent Patient's skin is warm and dry. Respiratory: No deficits noted. Airway is patent Respiratory effort is even, unlabored, Respiratory pattern is regular, symmetrical. GI: Abdomen is round non-distended, Bowel sounds present X 4 quads. Abd is soft X 4 quads Reports lower abdominal pain, upper abdominal pain, nausea, vomiting. : No signs and/or symptoms were reported regarding the genitourinary system. Derm: No deficits noted. No signs and/or symptoms reported regarding the dermatologic system. Skin is intact, is healthy with good turgor, Skin is dry, Skin is normal, Skin temperature is warm. Musculoskeletal: No deficits noted. No signs and/or symptoms reported regarding the musculoskeletal system. Circulation, motion, and sensation intact. Range of motion: intact in all extremities. Historical: - Allergies: 00:21 No Known Allergies; lg3 - Home Meds: 00:21 None [Active]; lg3 - PMHx: 00:21 Diabetes - NIDDM; Hypertension; [place] (Hypertension); lg3 - PSHx: 00:21 right hand (Hypertension); Appendectomy; lg3 - Immunization history:: Adult Immunizations up to date. - Infectious Disease History:: Denies. - Social history:: Smoking status: Patient denies any tobacco usage or history of. Patient uses alcohol, only on a social basis. Screenin:24 [facility] ED Fall Risk Assessment (Adult) History of falling in the last 3 months, lg3 including since admission No falls in past 3 months (0 pts) Confusion or Disorientation No (0 pts) Intoxicated or Sedated No (0 pts) Impaired Gait No (0 pts) Mobility Assist Device Used No (0 pt) Altered Elimination No (0 pt) Score/Fall Risk Level 0 - 2 = Low Risk Oriented to surroundings, Maintained a safe environment, Educated pt \T\ family on fall prevention, incl call for assistance when getting out of bed, Assessed \T\ reinforced patient's understanding of fall precautions. Abuse screen: Denies threats or abuse. Denies injuries from another. Nutritional screening: No deficits noted. Tuberculosis screening: No symptoms or risk factors identified. Assessment: 00:24 General: see triage assessment. lg3 Vital Signs: 00:19 BP 123 / 82; Pulse 66; Resp 17 S; Temp 98.3(O); Pulse Ox 98% ; Weight 81.65 kg (R); lg3 Height 5 ft. 9 in. (R); Pain 10/10; 02:12 BP 114 / 88; Pulse 50; Resp 18; Pulse Ox 99% ; cp4 03:37 BP 126 / 75; Pulse 50; Resp 18; Pulse Ox 98% ; cp4 00:19 Body Mass Index 26.58 (81.65 kg, 175.26 cm) 3 00:19 Pain Scale: Adult 3 ED Course: 11/12 23:22 Patient arrived in ED. im 23:30 Sreekanth Howe MD is Attending Physician. ec2 11/13 00:21 Triage completed. lg3 00:21 Arm band placed on right wrist. lg3 00:24 Patient has correct armband on for positive identification. Family accompanied patient. lg3 00:24 Initial lab(s) drawn, by ED staff, sent to lab. Urine collected: clean catch specimen, lg3 clear, COVID swab sent to lab. Flu and/or RSV swab sent to lab. Inserted saline lock: 20 gauge in right antecubital area, using aseptic technique. Blood collected. Flushed with 10 mL NS. Patient maintains SpO2 saturation greater than 95% on room air. 00:26 UAM Sent. lg3 00:26 COVID-19 Ag + Flu A+B Ag Sent. lg3 00:26 CBC with Diff Sent. lg3 00:26 CMP Sent. lg3 00:27 Lipase Sent. lg3 01:01 Kim Spangler is Primary Nurse. cp4 01:18 CT Abd/Pelvis - IV Contrast Only In Process Unspecified. EDMS 04:11 Provided Education on: abdominal pain. cp4 04:11 No provider procedures requiring assistance completed. intact, bleeding controlled, No cp4 redness/swelling at site. Pressure dressing applied. Administered Medications: 01:12 Drug: Ondansetron IVP 4 mg IVP once; over 2 minutes Route: IVP; Site: right antecubital;cp4 03:30 Follow up: Response: No adverse reaction cp4 01:12 Drug: morphine IVP or IV 4 mg IVP once over 4 mins Route: IVP; Infused Over: 4 mins; cp4 Site: right antecubital; 03:30 Follow up: Response: No adverse reaction cp4 01:12 Drug: NS 0.9% IV 1000 ml IV at 1 bolus Per protocol; to be given as a bolus over 60 cp4 minutes Route: IV; Rate: 1 bolus; Site: right antecubital; 03:30 Follow up: IV Status: Completed infusion cp4 03:36 Drug: Famotidine IVP 20 mg IVP once; dilute with 10 mL 0.9% NaCl; give over 2 minutes cp4 Route: IVP; Site: right antecubital; 04:11 Follow up: Response: No adverse reaction cp4 Medication: 00:24 VIS not applicable for this client. lg3 Outcome: 03:18 Discharge ordered by MD. ec2 04:11 Discharged to home ambulatory, cp4 04:11 Condition: stable 04:11 Discharge instructions given to patient, family, Instructed on discharge instructions, follow up and referral plans. medication usage, Demonstrated understanding of instructions, follow-up care, medications, Prescriptions given X 1, 04:12 Patient left the ED. cp4 Signatures: Dispatcher [employer] Cristal Galarza RN RN lg3 Reshma Barba Edwin, MD MD ec2 Kim Spangler cp4 Corrections: (The following items were deleted from the chart) 00:23 00:21 Home Meds: Metformin Oral; 3 3 00:38 00:27 Urinalysis+U.LAB.BRZ drawn and sent. 3 EDMO
--- NOTE | 2024-11-13 03:19 | EDPHYS ---
Physician Documentation [facility] Name: Adolph Keenan Age: 44 yrs Sex: Male : 1980 Arrival Date: 11/12/2024 Time: 23:18 Bed 13 Private MD: ED Physician Sreekanth Howe HPI: 11/12 23:47 This 44 yrs old Male presents to ER via Unassigned with complaints of ec2 Abdominal Pain, Nausea/Vomiting, Fever. 23:47 Patient arrives today for abdominal pain, generalized along with associated nausea, ec2 subjective fevers and chills, headache, dysuria as well.. Historical: - Allergies: 11/13 00:21 No Known Allergies; lg3 - Home Meds: 00:21 None [Active]; lg3 - PMHx: 00:21 Diabetes - NIDDM; Hypertension; [place] (Hypertension); lg3 - PSHx: 00:21 right hand (Hypertension); Appendectomy; lg3 - Immunization history:: Adult Immunizations up to date. - Infectious Disease History:: Denies. - Social history:: Smoking status: Patient denies any tobacco usage or history of. Patient uses alcohol, only on a social basis. ROS: 11/12 23:47 Constitutional: as per hpi ec2 Exam: 23:47 Constitutional: GEN: NAD Head: atraumatic Eyes: EOMI Ears: External ears are ec2 normal. CV: regular rate LUNGS: no respiratory distress ABD: non-distended, soft, tender in the lower abdomen, not guarding or rigid. SKIN: no evidence of rashes MSK: no evidence of trauma Vital Signs: 11/13 00:19 BP 123 / 82; Pulse 66; Resp 17 S; Temp 98.3(O); Pulse Ox 98% ; Weight 81.65 kg (R); lg3 Height 5 ft. 9 in. (R); Pain 10/10; 02:12 BP 114 / 88; Pulse 50; Resp 18; Pulse Ox 99% ; cp4 03:37 BP 126 / 75; Pulse 50; Resp 18; Pulse Ox 98% ; cp4 00:19 Body Mass Index 26.58 (81.65 kg, 175.26 cm) lg3 00:19 Pain Scale: Adult lg3 MDM: 11/12 23:37 Medical Screening Exam initiated ec2 23:47 Data reviewed: vital signs, nurses notes. ED course: Patient arrives today for ec2 evaluation of abdominal pain along with nausea and vomiting with associated subjective fevers. Examination yields abdominal TTP will obtain lab work, urine studies, CT imaging. DDx includes processes such as diverticulitis, gastroenteritis, dehydration.. 11/13 01:21 ED course: CBC is reassuring. Metabolic profile with appropriate electrolytes and renal ec2 function. Urine is noninfectious, lipase within normal ranges. Viral swab negative. Pending CT imaging.. 03:18 ED course: CT on pelvis shows no acute intra-abdominal process. On reassessment patient ec2 is well-appearing no acute distress. Will discharge home have the patient follow-up PCP. No evidence of intra-abdominal infection, no kidney stone, no diverticulitis. Return precautions given.. 03 23:46 Order name: CBC with Diff; Complete Time: 01:20 ec2 11/12 23:46 Order name: CMP; Complete Time: 01:20 ec2 11/12 23:46 Order name: Lipase; Complete Time: 01:20 ec2 11/12 23:47 Order name: COVID-19 Ag + Flu A+B Ag; Complete Time: 01:20 ec2 11/12 23:47 Order name: UAM; Complete Time: 01:20 ec2 11/12 23:46 Order name: CT Abd/Pelvis - IV Contrast Only; Complete Time: 03:18 ec2 11/12 23:46 Order name: IV Saline Lock; Complete Time: 00:26 ec2 11/12 23:46 Order name: Labs collected and sent; Complete Time: 00:26 ec2 Administered Medications: 01:12 Drug: Ondansetron IVP 4 mg IVP once; over 2 minutes Route: IVP; Site: right antecubital;cp4 03:30 Follow up: Response: No adverse reaction cp4 01:12 Drug: morphine IVP or IV 4 mg IVP once over 4 mins Route: IVP; Infused Over: 4 mins; cp4 Site: right antecubital; 03:30 Follow up: Response: No adverse reaction cp4 01:12 Drug: NS 0.9% IV 1000 ml IV at 1 bolus Per protocol; to be given as a bolus over 60 cp4 minutes Route: IV; Rate: 1 bolus; Site: right antecubital; 03:30 Follow up: IV Status: Completed infusion cp4 03:36 Drug: Famotidine IVP 20 mg IVP once; dilute with 10 mL 0.9% NaCl; give over 2 minutes cp4 Route: IVP; Site: right antecubital; 04:11 Follow up: Response: No adverse reaction cp4 Disposition Summary: 11/13/24 03:18 Discharge Ordered Notes: Location: Home ec2 Condition: Stable ec2 Diagnosis - Abdominal pain, unspecified ec2 Followup: ec2 - With: Private Physician - When: - Reason: Re-evaluation by your physician Discharge Instructions: - Discharge Summary Sheet ec2 - Abdominal Pain, Adult ec2 Forms: - Medication Reconciliation Form ec2 - Antibiotic Education ec2 - Prescription Opioid Use ec2 - Patient Portal Instructions ec2 - Leadership Thank You Letter ec2 Prescriptions: - Zofran 4 mg Oral Tablet - take 1 tablet ORAL route every 12 hours As needed; 20 tablet; Refills: 0, ec2 Product Selection Permitted Signatures: Dispatcher [employer] Cristal Galarza RN RN lg3 Sreekanth Howe MD MD ec2 Kim Spangler cp4 Corrections: (The following items were deleted from the chart) 11/12 23:47 23:47 CBC+H.LAB.BRZ ordered. EDAL EDMS 23:47 23:47 COMPREHENSIVE METABOLIC PANEL+C.LAB.BRZ ordered. EDAL EDMS 23:47 23:47 LIPASE+C.LAB.BRZ ordered. EDAL EDMS 11/13 00:23 00:21 Home Meds: Metformin Oral; lg3 lg3 00:38 11/12 23:47 Urinalysis+U.LAB.BRZ ordered. EDAL EDMS
[2024-11-13] MEDS ORDERED: FAMOTIDINE 20 MG/2 ML VIAL IV ONE (03:34)
[2024-11-13 04:20] VITALS: TEMP 98.3
[2024-11-13 04:22] VITALS: BP 126/75; O2SAT 98
== END 2024-11-13 04:12 | disposition home or self-care (01) ==
LOC: ER 23:18
DX: R10.84 Generalized abdominal pain (principal)
CPT/HCPCS: 36415; 74177; 80053; 81001; 83690; 85025; 87428; 96361; 96374; 96375; 99284; J2405; J7030; Q9967

== ENCOUNTER 2024-11-16 23:44 | Emergency (ER) | payer OTHER ==
[2024-11-17] MEDS ORDERED: KETOROLAC 30 MG/ML INJ ONE (00:46)
[2024-11-17] MEDS ORDERED: ONDANSETRON 4 MG/2 ML VIAL ONE ×2 (00:46→04:11)
[2024-11-17] MEDS ORDERED: DICYCLOMINE HCL 20 MG/2 ML AMP IM ONE (00:46)
[2024-11-17] MEDS ORDERED: FAMOTIDINE 20 MG/2 ML VIAL IV ONE (00:47)
[2024-11-17] MEDS ORDERED: NA CHLORIDE 0.9% 1,000 ML ONE (00:47)
[2024-11-17 00:58] LABS: Absolute Basophils 0.1 K/uL (0-0.5); Absolute Eosinophils 0.7 K/uL (0-0.5); Absolute Lymphocytes (CBC) 2.6 K/uL (0.7-4.9); Absolute Monocytes 0.6 K/uL (0.1-1.3); Absolute Neutrophil 4.9 K/uL (1.8-8.0); Basophils % 0.8 % (0-1.3); Eosinophils % 7.7 % (0-4.4); Hematocrit 44.5 % (39.6-49.0); Hemoglobin 15.1 g/dL (13.6-17.9); MCH 29.9 pg (27.0-35.0); MCV 88.2 fL (80-100); MPV 8.1 fL (7.6-11.3); Monocytes % 6.8 % (3.3-12.3); Neutrophils % 55.7 % (41.7-73.7); Nucleated Red Blood Cells % 0.1 % (0-0); Platelets 291 thou/uL (152-406); RBC Red Blood Cell Count 5.05 M/uL (4.33-5.43); Red Cell Distribution Width 13.9 % (12.1-15.2)
[2024-11-17 01:50] LABS: Albumin 3.1 g/dL (3.4-5.0); Albumin/Globulin Ratio 0.9 (1.1-1.8); Anion Gap 8.9 mEq/L (5.0-15.0); Bilirubin Total 0.3 mg/dL (0.2-1.0); Globulin 3.6 g/dL (2.3-3.5); Potassium 3.9 mEq/L (3.5-5.1); Protein, Total 6.7 g/dL (6.4-8.2)
[2024-11-17] MEDS ORDERED: MORPHINE 4 MG/ML SYR ONE (04:12)
--- NOTE | 2024-11-17 05:17 | EDPHYS ---
Physician Documentation [facility] Name: Adolph Keenan Age: 44 yrs Sex: Male : 1980 Arrival Date: 11/16/2024 Time: 23:44 Bed 5 Private MD: ED Physician Pedro Chase HPI: 11/17 00:34 This 44 yrs old Male presents to ER via Unassigned with complaints of sb4 Abdominal Pain. 00:34 Patient reports abdominal pain for 1 week. He was seen here a few days ago, had labs sb4 and a CT scan that were all negative. He states that his pain has gotten worse. States that the medication he was prescribed is not helping. States that he has been vomiting as well. Historical: - Allergies: 00:35 No Known Allergies; dd2 - PMHx: 00:35 Diabetes - NIDDM; Hypertension; [place] (Hypertension); dd2 - PSHx: 00:35 Appendectomy; right hand (en); dd2 - Immunization history:: Adult Immunizations up to date, Client reports receiving the 2nd dose of the Covid vaccine, Flu vaccine is up to date. - Infectious Disease History:: Denies. - Social history:: Smoking status: Patient denies any tobacco usage or history of. ROS: 00:34 Constitutional: Negative for fever, chills, and weight loss, sb4 00:34 Abdomen/GI: Positive for abdominal pain, nausea and vomiting, 00:34 All other systems are negative, Exam: 00:34 Constitutional: This is a well developed, well nourished patient who is awake, alert, sb4 and in no acute distress. Head/Face: Normocephalic, atraumatic. Eyes: Extra-ocular motions intact. Periorbital areas with no swelling, redness, or edema. ENT: Mucous membranes moist. Cardiovascular: Regular rate and rhythm with a normal S1 and S2. Respiratory: No increased work of breathing, no retractions or nasal flaring. Skin: Warm, dry with normal turgor. Normal color with no rashes, no lesions, and no evidence of cellulitis. 00:34 Abdomen/GI: Inspection: abdomen appears normal, Bowel sounds: normal, Palpation: soft, mild abdominal tenderness, in all quadrants, Vital Signs: 00:30 BP 131 / 71; Pulse 67; Resp 17; Temp 97.8(O); Pulse Ox 99% on R/A; Weight 79.38 kg (R); dd2 Pain 8/10; 01:50 BP 124 / 73; Pulse 62; Resp 16; Pulse Ox 100% on R/A; dd2 02:30 BP 147 / 98; Pulse 52; Resp 16; Pulse Ox 100% on R/A; dd2 03:30 BP 134 / 83; Pulse 63; Resp 16; Pulse Ox 99% on R/A; dd2 05:00 BP 131 / 77; Pulse 65; Resp 16; Temp 98.3; Pulse Ox 99% on R/A; dd2 00:30 Pain Scale: Adult dd2 Adryan Coma Score: 00:38 Eye Response: spontaneous(4). Motor Response: obeys commands(6). Verbal Response: dd2 oriented(5). Total: 15. MDM: 00:01 Medical Screening Exam initiated sb4 05:04 ED course: COMPARISON: CTAbdomen pelvis 11/13/2024. FINDINGS: Lung bases: Unremarkable. sp4 No mass. No consolidation. ABDOMEN: Liver: Unremarkable. No mass. Gallbladder and bile ducts: Contracted gallbladder without calcified stones. No ductal dilation. Pancreas: No findings to suggest acute pancreatitis. No mass visualized. No ductal dilation. Spleen: Unremarkable. No splenomegaly. Adrenals: Unremarkable. No mass. Kidneys and ureters: Punctate right nephrolithiasis. No hydronephrosis. No findings to suggest pyelonephritis. Stomach and bowel: Colonic diverticulosis. No findings to suggest colitis or diverticulitis. No obstruction. PELVIS: Appendix: The appendix is not visualized. No pericecal inflammation to suggest acute appendicitis. Bladder: Unremarkable. No mass. Reproductive: Unremarkable as visualized. ABDOMEN and PELVIS: Intraperitoneal space: Unremarkable. No free air. No significant fluid collection. Bones/joints: No acute fracture. No dislocation. Soft tissues: Unremarkable. Vasculature: Unremarkable. No abdominal aortic aneurysm. Lymph nodes: No pathologically enlarged lymph nodes. IMPRESSION: 1. Colonic diverticulosis. No findings to suggest colitis or diverticulitis. 2. Punctate right nephrolithiasis. No hydronephrosis. No findings to suggest pyelonephritis.. 11/17 00:29 Order name: CBC with Diff; Complete Time: 01:01 sb4 11/17 00:29 Order name: CMP; Complete Time: 05:02 4 11/17 00:29 Order name: Lipase; Complete Time: 05:02 11/17 00:29 Order name: Urinalysis w/ reflexes 11/17 00:29 Order name: CT Abd/Pelvis - IV Contrast Only 11/17 00:29 Order name: IV Saline Lock; Complete Time: 01:00 4 11/17 00:29 Order name: Labs collected and sent; Complete Time: 01: 4 11/17 01:05 Order name: Misc. Order: RECOLLECT GREEN TOP; Complete Time: :18 vc1 Administered Medications: 00:58 Drug: Dicyclomine IM 20 mg IM once Route: IM; Site: right deltoid; dd2 00:59 Drug: Famotidine IVP 20 mg IVP once; dilute with 10 mL 0.9% NaCl; give over 2 minutes dd2 Route: IVP; Site: right forearm; 00:59 Drug: TORadol - Ketorolac IVP 15 mg IVP once Route: IVP; Site: right forearm; dd2 00:59 Drug: Ondansetron IVP 4 mg IVP once; over 2 minutes Route: IVP; Site: right forearm; dd2 00:59 Drug: NS 0.9% IV 1000 ml IV at 1 bolus Per protocol; to be given as a bolus over 60 dd2 minutes Route: IV; Rate: 1 bolus; Site: right forearm; 04:15 Drug: Ondansetron IVP 4 mg IVP once; over 2 minutes Route: IVP; Site: right forearm; kd3 04:15 Drug: morphine IVP or IV 4 mg IVP once over 4 mins Route: IVP; Infused Over: 4 mins; kd3 Site: right forearm; 05:36 Drug: Dicyclomine PO 20 mg PO once Route: PO; dd2 05:36 Drug: HYDROcodone-acetaminophen PO 5 mg-325 mg 2 tabs PO once Route: PO; dd2 05:36 Drug: MetoCLOPramide PO 10 mg PO once Route: PO; dd2 05:36 Drug: Ibuprofen PO 800 mg PO once Route: PO; dd2 Disposition: 05:15 Co-signature as Attending Physician, Pedro Chase MD I agree with the assessment sp4 and plan of care. I reviewed the patient's care provided by Advanced Practice Provider \T\ agree w/ the diagnosis \T\ care plan. I personally saw the pt \T\ performed a substantive portion of the visit, incldng all aspects of the (History/Exam/Medical Decision Making). Disposition Summary: 11/17/24 05:17 Discharge Ordered Notes: Location: Home sp4 Problem: new sp4 Symptoms: have improved sp4 Condition: Stable sp4 Diagnosis - Acute viral gastroenteritis, nausea vomiting and diarrhea sp4 - Acute generalized abdominal pain sp4 Followup: sp4 - With: Ankur Betts MD - When: 7 - 10 days - Reason: Recheck today's complaints Discharge Instructions: - Discharge Summary Sheet sp4 - Viral Gastroenteritis, Adult, [id number] sp4 Forms: - Work release form sp4 - Patient Portal Instructions sp4 Prescriptions: - Tramadol 50 mg Oral Tablet - take 1 tablet ORAL route every 8 hours as needed; 12 tablet; Refills: 0, sp4 Product Selection Permitted - Lomotil 2.5-0.025 mg Oral tablet - take 1 tablet ORAL route every 6 hours As needed PRN diarrhea; 30 tablet; sp4 Refills: 0, Product Selection Permitted - dicyclomine 20 mg Oral tablet - take 1 tablet ORAL route every 8 hours PRN abdominal pain; 30 tablet; Refills: sp4 0, Product Selection Permitted - ondansetron 8 mg Oral Tablet,disintegrating - take 1 tablet ORAL route every 8 hours PRN nausea; 30 tablet; Refills: 0, sp4 Product Selection Permitted Signatures: Dispatcher [employer] Pati Drake RN RN kd3 Sudha Murray RN RN 1 Arely Holloway, PA-C PA-C sb4 Pedro Chase MD MD sp4 CHER LARSON RN RN dd2
--- NOTE | 2024-11-17 05:17 | ER ---
Nurse's Notes [facility] Name: Adolph Keenan Age: 44 yrs Sex: Male : 1980 Arrival Date: 11/16/2024 Time: 23:44 Bed 5 Private MD: Diagnosis: Acute viral gastroenteritis, nausea vomiting and diarrhea;Acute generalized abdominal pain Presentation: 11/17 00:30 Chief complaint: Patient states: STOMACH PAIN, VOMITING BLOOD AND BLOODY STOOLS X5 dd2 DAYS. PT REPORTS THAT HE WAS HERE RECENTLY FOR THE SAME THINGS AND HAS A GASTROENTEROLOGY APPT 01/17. Coronavirus screen: At this time, the client does not indicate any symptoms associated with coronavirus-19. Ebola Screen: No symptoms or risks identified at this time. Initial Sepsis Screen: Does the patient meet any 2 criteria? No. Patient's initial sepsis screen is negative. Does the patient have a suspected source of infection? No. Patient's initial sepsis screen is negative. Risk Assessment: Do you want to hurt yourself or someone else? Patient reports no desire to harm self or others. Onset of symptoms was November 12, 2024. 00:30 Method Of Arrival: Ambulatory dd2 00:30 Acuity: JOAQUIN 3 dd2 Triage Assessment: 00:35 General: Appears in no apparent distress. uncomfortable, Behavior is calm, cooperative, dd2 appropriate for age. Pain: Complains of pain in abdomen Pain does not radiate. Pain currently is 8 out of 10 on a pain scale. Quality of pain is described as crampy. EENT: No deficits noted. No signs and/or symptoms were reported regarding the EENT system. Neuro: No deficits noted. Alvarado Agitation-Sedation Scale (RASS): 0 - Alert and Calm Level of Consciousness is awake, alert, obeys commands, Oriented to person, place, time, situation, Appropriate for age. Cardiovascular: Capillary refill < 3 seconds Patient's skin is warm and dry. Respiratory: No deficits noted. Airway is patent Respiratory effort is even, unlabored, Respiratory pattern is regular, symmetrical. GI: Abdomen is non-distended, Bowel sounds present X 4 quads. Abd is soft X 4 quads Abdomen is tender to palpation X 4 quads. : No deficits noted. No signs and/or symptoms were reported regarding the genitourinary system. Derm: No deficits noted. No signs and/or symptoms reported regarding the dermatologic system. Musculoskeletal: No deficits noted. No signs and/or symptoms reported regarding the musculoskeletal system. Circulation, motion, and sensation intact. Range of motion: intact in all extremities. Historical: - Allergies: 00:35 No Known Allergies; dd2 - PMHx: 00:35 Diabetes - NIDDM; Hypertension; MD (Hypertension); dd2 - PSHx: 00:35 Appendectomy; right hand (en); dd2 - Immunization history:: Adult Immunizations up to date, Client reports receiving the 2nd dose of the Covid vaccine, Flu vaccine is up to date. - Infectious Disease History:: Denies. - Social history:: Smoking status: Patient denies any tobacco usage or history of. Screenin:38 [facility] ED Fall Risk Assessment (Adult) History of falling in the last 3 months, dd2 including since admission No falls in past 3 months (0 pts) Confusion or Disorientation No (0 pts) Intoxicated or Sedated No (0 pts) Impaired Gait No (0 pts) Mobility Assist Device Used No (0 pt) Altered Elimination No (0 pt) Score/Fall Risk Level 0 - 2 = Low Risk Oriented to surroundings, Maintained a safe environment, Educated pt \T\ family on fall prevention, incl call for assistance when getting out of bed, Assessed \T\ reinforced patient's understanding of fall precautions, Hourly rounding (assess needs \T\ fall precautionary measures) done. Abuse screen: Denies threats or abuse. Denies injuries from another. Nutritional screening: Has had N/V for 3 or more days. Tuberculosis screening: No symptoms or risk factors identified. Assessment: 00:38 Reassessment: SEE TRIAGE ASSESSMENT FOR FULL ASSESSMENT. dd2 Vital Signs: 00:30 BP 131 / 71; Pulse 67; Resp 17; Temp 97.8(O); Pulse Ox 99% on R/A; Weight 79.38 kg (R); dd2 Pain 8/10; 01:50 BP 124 / 73; Pulse 62; Resp 16; Pulse Ox 100% on R/A; dd2 02:30 BP 147 / 98; Pulse 52; Resp 16; Pulse Ox 100% on R/A; dd2 03:30 BP 134 / 83; Pulse 63; Resp 16; Pulse Ox 99% on R/A; dd2 05:00 BP 131 / 77; Pulse 65; Resp 16; Temp 98.3; Pulse Ox 99% on R/A; dd2 00:30 Pain Scale: Adult dd2 [place] Coma Score: 00:38 Eye Response: spontaneous(4). Motor Response: obeys commands(6). Verbal Response: dd2 oriented(5). Total: 15. ED Course: 11/16 23:46 Patient arrived in ED. im 11/17 00:01 Arely Holloway PA-C [facility]. sb4 00:01 Pedro Chase MD is Attending Physician. sb4 00:20 Pati Colon, RUTH is Primary Nurse. kd3 00:35 Triage completed. dd2 00:35 Arm band placed on right wrist. dd2 00:38 Patient has correct armband on for positive identification. Bed in low position. Call dd2 light in reach. Side rails up X 1. Client placed on continuous cardiac and pulse oximetry monitoring. NIBP monitoring applied. Door closed. Noise minimized. Warm blanket given. Pillow given. Verbal reassurance given. 00:38 No provider procedures requiring assistance completed. Patient maintains SpO2 dd2 saturation greater than 95% on room air. 01:00 Initial lab(s) drawn, by ED staff, sent to lab. Inserted saline lock: 20 gauge in right dd2 forearm, using aseptic technique. Blood collected. Flushed with 10 mL NS. 02:18 CT Abd/Pelvis - IV Contrast Only In Process Unspecified. EDMS 05:16 Ankur Betts MD is Referral Physician. sp4 05:39 IV discontinued, intact, bleeding controlled, No redness/swelling at site. Pressure dd2 dressing applied. 05:40 Provided Education on: d/c instructions, medications, and f/u. dd2 Administered Medications: 00:58 Drug: Dicyclomine IM 20 mg IM once Route: IM; Site: right deltoid; dd2 00:59 Drug: Famotidine IVP 20 mg IVP once; dilute with 10 mL 0.9% NaCl; give over 2 minutes dd2 Route: IVP; Site: right forearm; 00:59 Drug: TORadol - Ketorolac IVP 15 mg IVP once Route: IVP; Site: right forearm; dd2 00:59 Drug: Ondansetron IVP 4 mg IVP once; over 2 minutes Route: IVP; Site: right forearm; dd2 00:59 Drug: NS 0.9% IV 1000 ml IV at 1 bolus Per protocol; to be given as a bolus over 60 dd2 minutes Route: IV; Rate: 1 bolus; Site: right forearm; 04:15 Drug: Ondansetron IVP 4 mg IVP once; over 2 minutes Route: IVP; Site: right forearm; kd3 04:15 Drug: morphine IVP or IV 4 mg IVP once over 4 mins Route: IVP; Infused Over: 4 mins; kd3 Site: right forearm; 05:36 Drug: Dicyclomine PO 20 mg PO once Route: PO; dd2 05:36 Drug: HYDROcodone-acetaminophen PO 5 mg-325 mg 2 tabs PO once Route: PO; dd2 05:36 Drug: MetoCLOPramide PO 10 mg PO once Route: PO; dd2 05:36 Drug: Ibuprofen PO 800 mg PO once Route: PO; dd2 Medication: 00:38 VIS not applicable for this client. dd2 Outcome: 05:17 Discharge ordered by . kash 05:39 Discharged to home ambulatory, dd2 05:39 Condition: improved 05:39 Discharge instructions given to patient, Instructed on discharge instructions, follow up and referral plans. medication usage, Demonstrated understanding of instructions, follow-up care, medications, Prescriptions given X 4, 05:41 Patient left the ED. dd2 Signatures: Dispatcher [employer] EDPati Newton RN RN kd3 Arely Holloway PA-C PA-C sb4 Potepalov, Sergey, MD MD sp4 Reshma Barba DIANA, RN RN dd2
[2024-11-17] MEDS ORDERED: DICYCLOMINE HCL 10 MG CAP ONE (05:24)
[2024-11-17] MEDS ORDERED: METOCLOPRAMIDE 5 MG TAB ONE (05:25)
[2024-11-17] MEDS ORDERED: IBUPROFEN 400 MG TAB ONE (05:25)
[2024-11-17] MEDS ORDERED: HYDROCODONE/APAP 5/325 MG TAB ONE (05:25)
--- NOTE | 2024-11-17 06:13 | RAD REPORT ---
EXAM: CT Abdomen and Pelvis With Intravenous Contrast CLINICAL HISTORY: The patient is 44 years old and is Male; Abdomen pain. TECHNIQUE: Axial computed tomography images of the abdomen and pelvis with intravenous contrast. Sagittal and coronal reformatted images were created and reviewed. This CT exam was performed using one or more of the following dose reduction techniques: automated exposure control, adjustmen t of the mA and/or kV according to patient size, and/or use of iterative reconstruction technique. COMPARISON: CT Abdomen pelvis 11/13/2024. FINDINGS: Lung bases: Unremarkable. No mass. No consolidation. ABDOMEN: Liver: Unremarkable. No mass. Gallbladder and bile ducts: Contracted gallbladder without calcified stones. No ductal dilation. Pancreas: No findings to suggest acute pancreatitis. No mass visualized. No ductal dilation. Spleen: Unremarkable. No splenomegaly. Adrenals: Unremarkable. No mass. Kidneys and ureters: Punctate right nephrolithiasis. No hydronephrosis. No findings to suggest py elonephritis. Stomach and bowel: Colonic diverticulosis. No findings to suggest colitis or diverticulitis. No obstruction. PELVIS: Appendix: The appendix is not visualized. No pericecal inflammation to suggest acute appendicitis . Bladder: Unremarkable. No mass. Reproductive: Unremarkable as visualized. ABDOMEN and PELVIS: Intraperitoneal space: Unremarkable. No free air. No significant fluid collection. Bones/joints: No acute fracture. No dislocation. Soft tissues: Unremarkable. Vasculature: Unremarkable. No abdominal aortic aneurysm. Lymph nodes: No pathologically enlarged lymph nodes. IMPRESSION: 1. Colonic diverticulosis. No findings to suggest colitis or diverticulitis. 2. Punctate right nephrolithiasis. No hydronephrosis. No findings to suggest pyelonephritis. Electronically signed by: Dixie Alvarado MD 11/17/2024 04:43 AM CDT V2 Due to temporary technical issues with the PACS/[employer] reporting system, reports are being sandy d by the in-house radiologist without review as a courtesy to ensure prompt reporting the interpreting radiologist is fully responsible for the content of the report. Transcribed Date/Time: 11/17/2024 6:12 AM
[2024-11-17 06:25] VITALS: O2SAT 99
[2024-11-17 06:26] VITALS: BP 131/77; TEMP 98.3
== END 2024-11-17 05:41 | disposition home or self-care (01) ==
LOC: ER 23:44
DX: A08.4 Viral intestinal infection, unspecified (principal); R11.2 Nausea with vomiting, unspecified
CPT/HCPCS: 36415; 74177; 80053; 83690; 85025; J0500; J2405; J7030; Q9967

== ENCOUNTER 2024-11-17 23:03 | Emergency (ER) | payer OTHER ==
[2024-11-17 23:43] LABS: Absolute Basophils 0.1 K/uL (0-0.5); Absolute Eosinophils 0.5 K/uL (0-0.5); Absolute Lymphocytes (CBC) 2.5 K/uL (0.7-4.9); Absolute Monocytes 0.6 K/uL (0.1-1.3); Absolute Neutrophil 7.1 K/uL (1.8-8.0); Basophils % 0.5 % (0-1.3); Eosinophils % 4.2 % (0-4.4); Hematocrit 44.7 % (39.6-49.0); Hemoglobin 15.2 g/dL (13.6-17.9); Lymphocytes % 23.5 % (15.3-44.8); MCH 29.8 pg (27.0-35.0); MCV 87.6 fL (80-100); MPV 8.4 fL (7.6-11.3); Monocytes % 5.9 % (3.3-12.3); Neutrophils % 65.9 % (41.7-73.7); Platelets 273 thou/uL (152-406); Red Cell Distribution Width 13.5 % (12.1-15.2)
[2024-11-18 00:06] LABS: Albumin 3.2 g/dL (3.4-5.0); Albumin/Globulin Ratio 0.8 (1.1-1.8); Anion Gap 8.5 mEq/L (5.0-15.0); Bilirubin Total 0.3 mg/dL (0.2-1.0); Protein, Total 7.2 g/dL (6.4-8.2)
[2024-11-18 00:07] LABS: Potassium 4.5 mEq/L (3.5-5.1)
[2024-11-18] MEDS ORDERED: droPERidol 5 MG/2 ML VIAL ONE (00:31)
[2024-11-18] MEDS ORDERED: KETOROLAC 30 MG/ML INJ ONE (00:31)
[2024-11-18] MEDS ORDERED: ONDANSETRON 4 MG/2 ML VIAL ONE (00:31)
[2024-11-18] MEDS ORDERED: MORPHINE 4 MG/ML SYR ONE (00:32)
[2024-11-18] MEDS ORDERED: FAMOTIDINE 20 MG/2 ML VIAL IV ONE (00:32)
[2024-11-18] MEDS ORDERED: NA CHLORIDE 0.9% 1,000 ML ONE (00:32)
--- NOTE | 2024-11-18 03:26 | ER ---
Nurse's Notes [facility] Name: Adolph Keenan Age: 44 yrs Sex: Male : 1980 Arrival Date: 11/17/2024 Time: 23:03 Bed DX2 Private MD: Diagnosis: Acute viral gastroenteritis Presentation: 11/17 23:16 Chief complaint: Patient states: PT C/O ABDOMINAL PAIN, NAUSEA/VOMITING/DIARRHEA. PT br2 STATES WAS HERE FOR SAME REASON YESTERDAY. Coronavirus screen: Client denies travel out of the [place] in the last 14 days. Ebola Screen: Patient denies exposure to infectious person. Initial Sepsis Screen: Does the patient meet any 2 criteria? No. Patient's initial sepsis screen is negative. Does the patient have a suspected source of infection? No. Patient's initial sepsis screen is negative. Risk Assessment: Do you want to hurt yourself or someone else? Patient reports no desire to harm self or others. Onset of symptoms was November 13, 2024. 23:16 Method Of Arrival: Ambulatory br2 23:16 Acuity: JOAQUIN 3 br2 Triage Assessment: 23:19 General: Appears uncomfortable, Behavior is calm, cooperative. Pain: Complains of pain br2 in abdomen Pain radiates to abdomen Pain currently is 10 out of 10 on a pain scale. GI: Reports lower abdominal pain, upper abdominal pain, diarrhea, nausea, vomiting. Historical: - Allergies: 23:19 No Known Allergies; br2 - PMHx: 23:19 HI (Hypertension); br2 - PSHx: 23:19 Appendectomy; right hand; br2 - Immunization history:: Adult Immunizations up to date. - Social history:: Smoking status: Patient denies any tobacco usage or history of. Patient uses alcohol, occasionally. Patient/guardian denies using street drugs. - Family history:: not pertinent. Assessment: 23:15 General: Behavior is calm, cooperative. Pain: Complains of pain in abdomen Pain ha1 currently is 8 out of 10 on a pain scale. Neuro: Level of Consciousness is awake, alert, obeys commands, Oriented to person, place, time, situation. Cardiovascular: Capillary refill < 3 seconds Patient's skin is warm and dry. Respiratory: Airway is patent Respiratory effort is even, unlabored, Respiratory pattern is regular, symmetrical. GI: Abdomen is round non-distended, Bowel sounds present X 4 quads. Abd is soft and non tender Reports lower abdominal pain, upper abdominal pain, nausea, vomiting. : No signs and/or symptoms were reported regarding the genitourinary system. Derm: Skin is pink, warm \T\ dry. Musculoskeletal: Circulation, motion, and sensation intact. Range of motion: intact in all extremities. 11/18 01:50 Reassessment: Patient and/or family updated on plan of care and expected duration. Pain ha1 level reassessed. Patient is alert, oriented x 3, equal unlabored respirations, skin warm/dry/pink. Patient denies pain at this time. Patient states feeling better. Patient states symptoms have improved. Vital Signs: 11/17 23:16 BP 129 / 81; Pulse 61; Resp 18; Pulse Ox 100% ; Weight 79.38 kg; Height 5 ft. 9 in. ; br2 Pain 10/10; 23:16 Body Mass Index 25.84 (79.38 kg, 175.26 cm) br2 23:16 Pain Scale: Adult br2 [place] Coma Score: 11/18 16:10 Eye Response: spontaneous(4). Motor Response: obeys commands(6). Verbal Response: sp4 oriented(5). Total: 15. ED Course: 11/17 23:05 Patient arrived in ED. im 23:05 Pedro Chase MD is Attending Physician. sp4 23:19 Triage completed. br2 23:19 Arm band placed on right wrist. br2 23:34 CBC with Diff Sent. af3 23:34 CMP Sent. af3 23:35 Lipase Sent. af3 23:51 CBC with Diff Sent. ha1 23:51 CMP Sent. ha1 23:51 Lipase Sent. ha1 11/18 00:00 Ping Jay, RUTH is Primary Nurse. br2 Administered Medications: 00:40 Drug: NS 0.9% IV 1000 ml IV at 1 bolus Per protocol; to be given as a bolus over 60 ha1 minutes Route: IV; Rate: 1 bolus; Site: right wrist; 02:20 Follow up: Response: No adverse reaction; IV Status: Completed infusion ha1 00:42 Drug: Ondansetron IVP 4 mg IVP once; over 2 minutes Route: IVP; Site: right wrist; ha1 01:10 Follow up: Response: No adverse reaction; Marked relief of symptoms ha1 00:45 Drug: TORadol - Ketorolac IVP 30 mg IVP once Route: IVP; Site: right wrist; ha1 01:10 Follow up: Response: No adverse reaction; Pain is decreased ha1 00:47 Drug: Famotidine IVP 20 mg IVP once; dilute with 10 mL 0.9% NaCl; give over 2 minutes ha1 Route: IVP; Site: right wrist; 01:10 Follow up: Response: No adverse reaction; Marked relief of symptoms ha1 00:49 Drug: Droperidol IVP 1.25 mg IVP once Route: IVP; Site: right wrist; ha1 01:10 Follow up: Response: No adverse reaction; Marked relief of symptoms ha1 00:50 Drug: morphine IVP or IV 4 mg IVP once over 4 mins Route: IVP; Infused Over: 4 mins; ha1 Site: right wrist; 01:10 Follow up: Response: No adverse reaction; Marked relief of symptoms; Pain is decreased; ha1 RASS: Alert and Calm (0) Outcome: 03:26 Discharge ordered by MD. hewitt 04:01 Patient left the ED. 1 Signatures: Tanesha Lovell RN RN ha1 Pedro Chase MD MD sp4 Reshma Barba Belinda, RN RN br2 Addis Pyle3 Corrections: (The following items were deleted from the chart) 11/17 23:20 23:19 PMHx: Diabetes - NIDDM; br2 br2
--- NOTE | 2024-11-18 03:26 | EDPHYS ---
Physician Documentation [facility] Name: Adolph Keenan Age: 44 yrs Sex: Male : 1980 Arrival Date: 11/17/2024 Time: 23:03 Bed DX2 Private MD: ED Physician Pedro Chase HPI: 11/17 23:06 This 44 yrs old Male presents to ER via Unassigned with complaints of sp4 Abdominal Pain. 11/18 16:10 44-year-old male presents with worsening abdominal pain. Patient reports nausea sp4 vomiting and diarrhea. Patient was seen here for the same yesterday. Was diagnosed with viral gastroenteritis and prescribed symptomatic medications.. Historical: - Allergies: 11/17 23:19 No Known Allergies; br2 - PMHx: 23:19 NH (Hypertension); br2 - PSHx: 23:19 Appendectomy; right hand; br2 - Immunization history:: Adult Immunizations up to date. - Social history:: Smoking status: Patient denies any tobacco usage or history of. Patient uses alcohol, occasionally. Patient/guardian denies using street drugs. - Family history:: not pertinent. ROS: 11/18 16:10 Constitutional: Negative for fever, chills, and weight loss, nausea vomiting diarrhea, sp4 positive abdominal pain All other systems are negative, Exam: 16:10 Constitutional: This is a well developed, well nourished patient who is awake, alert, sp4 and in no acute distress. Head/Face: Normocephalic, atraumatic. Eyes: Pupils equal round and reactive to light, extra-ocular motions intact. Lids and lashes normal. Conjunctiva and sclera are not injected. Cornea within normal limits. Periorbital areas with no swelling, redness, or edema. ENT: Nares patent. No nasal discharge, no septal abnormalities noted. Tympanic membranes are normal and external auditory canals are clear. Oropharynx with no redness, swelling, or masses, exudates, or evidence of obstruction, uvula midline. Mucous membranes moist. Neck: Trachea midline, no thyromegaly or masses palpated, and no cervical lymphadenopathy. Supple, full range of motion without nuchal rigidity, or vertebral point tenderness. Chest/axilla: Normal chest wall appearance and motion. Nontender with no deformity. No lesions are appreciated. Cardiovascular: Regular rate and rhythm with a normal S1 and S2. No gallops, murmurs, or rubs. Normal PMI, no JVD. No pulse deficits. Respiratory: Lungs have equal breath sounds bilaterally, clear to auscultation and percussion. No rales, rhonchi or wheezes noted. No increased work of breathing, no retractions or nasal flaring. Abdomen/GI: Soft, with normal bowel sounds. No distension or tympany. No guarding or rebound. No evidence of tenderness throughout. Skin: Warm, dry with normal turgor. Normal color with no rashes, no lesions, and no evidence of cellulitis. MS/ Extremity: Pulses equal, no cyanosis. Neurovascular intact. Full, normal range of motion. Neuro: Awake and alert, GCS 15, oriented to person, place, time, and situation. Cranial nerves II-XII grossly intact. Motor strength 5/5 in all extremities. Sensory grossly intact. Psych: Awake, alert, with orientation to person, place and time. Behavior, mood, and affect are within normal limits Vital Signs: 11/17 23:16 BP 129 / 81; Pulse 61; Resp 18; Pulse Ox 100% ; Weight 79.38 kg; Height 5 ft. 9 in. ; br2 Pain 10/10; 23:16 Body Mass Index 25.84 (79.38 kg, 175.26 cm) br2 23:16 Pain Scale: Adult br2 Bond Coma Score: 11/18 16:10 Eye Response: spontaneous(4). Motor Response: obeys commands(6). Verbal Response: sp4 oriented(5). Total: 15. MDM: 11/17 23:07 Medical Screening Exam initiated sp4 11/18 16:10 Differential diagnosis: gastritis, gastroesophageal reflux disease, GI Bleed, sp4 Hepatitis, pancreatitis. Data reviewed: vital signs, nurses notes, lab test result(s), CBC, electrolytes, hepatic panel. 11/17 23:07 Order name: CBC with Diff; Complete Time: 03:04 sp4 11/17 23:07 Order name: CMP; Complete Time: 03:04 sp4 11/17 23:07 Order name: Lipase; Complete Time: 03:04 sp4 11/17 23:07 Order name: IV Saline Lock; Complete Time: 23:51 sp4 11/17 23:07 Order name: Labs collected and sent; Complete Time: 23:51 sp4 Administered Medications: 00:40 Drug: NS 0.9% IV 1000 ml IV at 1 bolus Per protocol; to be given as a bolus over 60 ha1 minutes Route: IV; Rate: 1 bolus; Site: right wrist; 02:20 Follow up: Response: No adverse reaction; IV Status: Completed infusion ha1 00:42 Drug: Ondansetron IVP 4 mg IVP once; over 2 minutes Route: IVP; Site: right wrist; ha1 01:10 Follow up: Response: No adverse reaction; Marked relief of symptoms ha1 00:45 Drug: TORadol - Ketorolac IVP 30 mg IVP once Route: IVP; Site: right wrist; ha1 01:10 Follow up: Response: No adverse reaction; Pain is decreased ha1 00:47 Drug: Famotidine IVP 20 mg IVP once; dilute with 10 mL 0.9% NaCl; give over 2 minutes ha1 Route: IVP; Site: right wrist; 01:10 Follow up: Response: No adverse reaction; Marked relief of symptoms ha1 00:49 Drug: Droperidol IVP 1.25 mg IVP once Route: IVP; Site: right wrist; ha1 01:10 Follow up: Response: No adverse reaction; Marked relief of symptoms ha1 00:50 Drug: morphine IVP or IV 4 mg IVP once over 4 mins Route: IVP; Infused Over: 4 mins; ha1 Site: right wrist; 01:10 Follow up: Response: No adverse reaction; Marked relief of symptoms; Pain is decreased; ha1 RASS: Alert and Calm (0) Disposition: 16:13 Chart complete. sp4 Disposition Summary: 11/18/24 03:26 Discharge Ordered Notes: Continue medications prescribed yesterday Location: Home sp4 Problem: new sp4 Symptoms: have improved sp4 Condition: Stable sp4 Diagnosis - Acute viral gastroenteritis sp4 Followup: sp4 - With: Private Physician - When: 7 - 10 days - Reason: Recheck today's complaints Discharge Instructions: - Discharge Summary Sheet sp4 - Clear Liquid Diet, Adult, [id number] sp4 Forms: - Patient Portal Instructions sp4 Signatures: Dispatcher [employer] Tanesha Ervin RN RN ha1 Pedro Chase MD MD sp4 Ping Jay RN RN br2 Corrections: (The following items were deleted from the chart) 11/17 23:20 23:19 PMHx: Diabetes - NIDDM; br2 br2
[2024-11-18 04:05] VITALS: BP 129/81; O2SAT 100
== END 2024-11-18 04:01 | disposition home or self-care (01) ==
LOC: ER 23:03
DX: A08.4 Viral intestinal infection, unspecified (principal); I10 Essential (primary) hypertension
CPT/HCPCS: 96361; 85025; 36415; 83690; 80053; 96375; 96374; 99284; J2405; J1790; J7030

== ENCOUNTER 2024-11-19 18:59 | Emergency (ER) | payer OTHER ==
[2024-11-19] MEDS ORDERED: droPERidol 5 MG/2 ML VIAL ONE (19:21)
[2024-11-19] MEDS ORDERED: ONDANSETRON 4 MG/2 ML VIAL ONE (19:21)
[2024-11-19] MEDS ORDERED: NA CHLORIDE 0.9% 1,000 ML ONE (19:21)
[2024-11-19 19:44] LABS: Absolute Eosinophils 0.2 K/uL (0-0.5); Absolute Lymphocytes (CBC) 2.2 K/uL (0.7-4.9); Absolute Monocytes 0.5 K/uL (0.1-1.3); Absolute Neutrophil 4.7 K/uL (1.8-8.0); Basophils % 0.3 % (0-1.3); Eosinophils % 3.2 % (0-4.4); Hematocrit 45.1 % (39.6-49.0); Lymphocytes % 28.5 % (15.3-44.8); MCH 29.6 pg (27.0-35.0); MCHC 33.4 g/dL (32.0-36.0); MCV 88.6 fL (80-100); MPV 8.4 fL (7.6-11.3); Monocytes % 6.8 % (3.3-12.3); Neutrophils % 61.2 % (41.7-73.7); Platelets 260 thou/uL (152-406); RBC Red Blood Cell Count 5.09 M/uL (4.33-5.43); Red Cell Distribution Width 13.5 % (12.1-15.2)
[2024-11-19 20:00] LABS: ALT/SGPT 33 U/L (16-61); Albumin 3.3 g/dL (3.4-5.0); Albumin/Globulin Ratio 0.8 (1.1-1.8); Alkaline Phosphatase 89 U/L (45-117); Anion Gap 6.3 mEq/L (5.0-15.0); BUN Blood Urea Nitrogen 7 mg/dL (7-18); Bicarbonate 30 mEq/L (21-32); Bilirubin Total 0.6 mg/dL (0.2-1.0); Globulin 4.2 g/dL (2.3-3.5); Glomerular Filtration Rate 87 ml/min (=/>90); Glucose Level 106 mg/dL (74-106); NT PRO-BNP 76 pg/mL (<125); Protein, Total 7.5 g/dL (6.4-8.2); Sodium Level 134 mEq/L (136-145); Troponin High Sensitivity 4.6 pg/mL (<58.9)
--- NOTE | 2024-11-19 20:11 | RAD REPORT ---
Procedure: Chest Single View HISTORY: Chest pain COMPARISON: 2019 FINDINGS: The lungs appear clear of acute infiltrate. No significant pleural effusion noted. The heart is normal size. IMPRESSION: No acute abnormality is displayed.
[2024-11-19 20:26] LABS: AST/SGOT 27 U/L (15-37); Bilirubin Direct < 0.2 mg/dL (0-0.2); Bilirubin Indirect, Calculated 0.4 mg/dL (0.2-0.8); Potassium 4.3 mEq/L (3.5-5.1)
--- NOTE | 2024-11-19 22:38 | ER ---
Nurse's Notes [facility] Name: Adolph Keenan Age: 44 yrs Sex: Male : 1980 Arrival Date: 11/19/2024 Time: 18:59 Bed 13 Private MD: Diagnosis: Bradycardia, unspecified;Sinus Bradycardia , Generalized weakness, Acute viral gastroenteritis Presentation: 11/19 19:10 Chief complaint: Patient states: midsternal cp that started this morning, 06/09 me1 "squeezing" and states "I dont feel good." Reports that his HR has been in the 20s all day. c/o SOB, dizziness, blurred vision and nausea today as well. Hx of IN X2. Coronavirus screen: Vaccine status: Patient reports receiving the 2nd dose of the covid vaccine. Ebola Screen: No symptoms or risks identified at this time. Initial Sepsis Screen: Does the patient meet any 2 criteria? No. Patient's initial sepsis screen is negative. Does the patient have a suspected source of infection? No. Patient's initial sepsis screen is negative. Risk Assessment: Do you want to hurt yourself or someone else? Patient reports no desire to harm self or others. Onset of symptoms was November 19, 2024. 19:10 Method Of Arrival: Ambulatory fl1 19:10 Acuity: JOAQUIN 3 me1 Triage Assessment: 19:12 General: Appears uncomfortable, well groomed, well developed, well nourished, Behavior me1 is cooperative, appropriate for age, anxious, Reports CP, SOB, dizziness, blurred vision, slow HR and nausea that started today. Pain: Complains of pain in chest Pain does not radiate. Pain currently is 10 out of 10 on a pain scale. Quality of pain is described as squeezing, Pain began Is continuous. EENT: No signs and/or symptoms were reported regarding the EENT system. Neuro: Level of Consciousness is awake, alert, obeys commands, Oriented to person, place, time, situation, Appropriate for age. Cardiovascular: Reports chest pain, lightheadedness, nausea, shortness of breath. Respiratory: Reports shortness of breath Airway is patent Respiratory effort is even, unlabored, Respiratory pattern is regular, symmetrical. GI: Reports nausea. : No signs and/or symptoms were reported regarding the genitourinary system. Derm: Skin is intact, is healthy with good turgor, Skin is pink, warm \\T\\ dry. Musculoskeletal: No signs and/or symptoms reported regarding the musculoskeletal system. Historical: - Allergies: 19:12 No Known Allergies; me1 - PMHx: 19:12 Hypertension; [place] (Unknown); me1 - PSHx: 19:12 Appendectomy; right hand; me1 - Immunization history:: Adult Immunizations up to date. - Infectious Disease History:: Denies. - Social history:: Smoking status: Patient denies any tobacco usage or history of. - Family history:: not pertinent. Screenin:18 [facility] ED Fall Risk Assessment (Adult) History of falling in the last 3 months, vc1 including since admission No falls in past 3 months (0 pts) Confusion or Disorientation No (0 pts) Intoxicated or Sedated No (0 pts) Impaired Gait No (0 pts) Mobility Assist Device Used No (0 pt) Altered Elimination No (0 pt) Score/Fall Risk Level 0 - 2 = Low Risk Oriented to surroundings, Maintained a safe environment, Educated pt \\T\\ family on fall prevention, incl call for assistance when getting out of bed, Assessed \\T\\ reinforced patient's understanding of fall precautions, Provided non-skid footwear, Hourly rounding (assess needs \\T\\ fall precautionary measures) done. Abuse screen: Denies threats or abuse. Nutritional screening: No deficits noted. Tuberculosis screening: No symptoms or risk factors identified. Assessment: 21:18 Reassessment: Patient and/or family updated on plan of care and expected duration. Pain vc1 level reassessed. Patient is alert, oriented x 3, equal unlabored respirations, skin warm/dry/pink. Patient states feeling better. Patient states symptoms have improved. Neuro: [place] Agitation-Sedation Scale (RASS): -1 Drowsy. 22:59 Reassessment: Patient appears in no apparent distress at this time. Patient and/or vc1 family updated on plan of care and expected duration. Pain level reassessed. Patient is alert, oriented x 3, equal unlabored respirations, skin warm/dry/pink. Patient denies pain at this time. Patient states feeling better. Patient states symptoms have improved. Vital Signs: 19:10 BP 127 / 75; Pulse 54; Resp 20; Temp 98.2; Pulse Ox 99% ; Weight 79.38 kg; Height 5 ft. me1 9 in. ; Pain 10/10; 20:00 BP 116 / 71; Pulse 44; Resp 9; Pulse Ox 96% on 2 lpm NC; vc1 21:00 BP 107 / 63; Pulse 45; Resp 12; Pulse Ox 96% on 2 lpm NC; vc1 22:58 BP 107 / 67; Pulse 45; Resp 14; Pulse Ox 96% ; vc1 19:10 Body Mass Index 25.84 (79.38 kg, 175.26 cm) me1 19:10 Pain Scale: Adult me1 [place] Coma Score: 11/20 01:12 Eye Response: spontaneous(4). Motor Response: obeys commands(6). Verbal Response: sp4 oriented(5). Total: 15. ED Course: 11/19 19:01 Patient arrived in ED. rg4 19:04 Pedro Chase MD is Attending Physician. sp4 19:10 Chely Arzola RN is Primary Nurse. me1 19:12 Triage completed. me1 19:12 Arm band placed on Patient placed in an exam room. me1 19:12 block engraver on. Pulse ox on. NIBP on. vc1 19:18 Initial lab(s) drawn, by me, sent to lab. EKG done, by ED staff, reviewed by Pedro Chase MD. Inserted saline lock: 20 gauge in right antecubital area, using aseptic technique. Blood collected. Flushed with 10 mL NS. 19:43 XRAY Chest (1 view) In Process Unspecified. EDMS 22:59 No provider procedures requiring assistance completed. IV discontinued, intact, vc1 bleeding controlled, No redness/swelling at site. Pressure dressing applied. 23:00 Patient has correct armband on for positive identification. Bed in low position. Call vc1 light in reach. Provided Education on: f/u with cardiology. Administered Medications: 19:38 Drug: NS 0.9% IV 1000 ml IV at 1 bolus Per protocol; to be given as a bolus over 60 vc1 minutes Route: IV; Rate: 1 bolus; Site: right antecubital; 20:38 Follow up: IV Status: Completed infusion; IV Intake: 1000ml vc1 19:38 Drug: Droperidol IVP 1.25 mg IVP once Route: IVP; Site: right antecubital; vc1 23:01 Follow up: Response: No adverse reaction; Marked relief of symptoms vc1 19:38 Drug: Ondansetron IVP 4 mg IVP once; over 2 minutes Route: IVP; Site: right antecubital;vc1 23:01 Follow up: Response: No adverse reaction; Marked relief of symptoms vc1 Medication: 22:59 VIS not applicable for this client. vc1 Intake: 20:38 IV: 1000ml; Total: 1000ml. vc1 Outcome: 22:38 Discharge ordered by . kash 22:59 Condition: stable vc1 22:59 Discharged to home ambulatory, vc1 22:59 Discharge instructions given to patient, Instructed on discharge instructions, follow up and referral plans. Demonstrated understanding of instructions, follow-up care, 23:06 Patient left the ED. vc1 Signatures: Dispatcher [employer] Christina Sanchez rg4 Sudha Murray RN RN vc1 Pedro Chase MD MD sp4 Chely Arzola RN RN me1
--- NOTE | 2024-11-19 22:39 | EDPHYS ---
Physician Documentation [facility] Name: Adolph Keenan Age: 44 yrs Sex: Male : 1980 Arrival Date: 11/19/2024 Time: 18:59 Bed 13 Private MD: ED Physician Pedro Chase HPI: 11/19 19:05 This 44 yrs old Male presents to ER via Unassigned with complaints of Low sp4 heart rate. 11/20 01:12 44-year-old male presents with complaint of palpitations and a low heart rate.. Patient sp4 was seen here twice in the last 3 days for symptoms of gastroenteritis.. Historical: - Allergies: 11/19 19:12 No Known Allergies; me1 - PMHx: 19:12 Hypertension; [place] (Unknown); me1 - PSHx: 19:12 Appendectomy; right hand; me1 - Immunization history:: Adult Immunizations up to date. - Infectious Disease History:: Denies. - Social history:: Smoking status: Patient denies any tobacco usage or history of. - Family history:: not pertinent. ROS: 11/20 01:12 Constitutional: Negative for fever, chills, and weight loss, positive for bradycardia sp4 All other systems are negative, Exam: 01:12 Constitutional: This is a well developed, well nourished patient who is awake, alert, sp4 and in no acute distress. Head/Face: Normocephalic, atraumatic. Eyes: Pupils equal round and reactive to light, extra-ocular motions intact. Lids and lashes normal. Conjunctiva and sclera are not injected. Cornea within normal limits. Periorbital areas with no swelling, redness, or edema. ENT: Nares patent. No nasal discharge, no septal abnormalities noted. Tympanic membranes are normal and external auditory canals are clear. Oropharynx with no redness, swelling, or masses, exudates, or evidence of obstruction, uvula midline. Mucous membranes moist. Neck: Trachea midline, no thyromegaly or masses palpated, and no cervical lymphadenopathy. Supple, full range of motion without nuchal rigidity, or vertebral point tenderness. Chest/axilla: Normal chest wall appearance and motion. Nontender with no deformity. No lesions are appreciated. Cardiovascular: Positive for bradycardia, regular bradycardia, no gallops, murmurs, or rubs. Normal PMI, no JVD. No pulse deficits. Respiratory: Lungs have equal breath sounds bilaterally, clear to auscultation and percussion. No rales, rhonchi or wheezes noted. No increased work of breathing, no retractions or nasal flaring. Abdomen/GI: Soft, with normal bowel sounds. No distension or tympany. No guarding or rebound. No evidence of tenderness throughout. Back: No spinal tenderness. No costovertebral tenderness. Skin: Warm, dry with normal turgor. Normal color with no rashes, no lesions, and no evidence of cellulitis. MS/ Extremity: Pulses equal, no cyanosis. Neurovascular intact. Full, normal range of motion. Neuro: Awake and alert, GCS 15, oriented to person, place, time, and situation. Cranial nerves II-XII grossly intact. Motor strength 5/5 in all extremities. Sensory grossly intact. Psych: Awake, alert, with orientation to person, place and time. Behavior, mood, and affect are within normal limits 01:12 ECG was reviewed by the Attending Physician. EKG at 1908 sinus bradycardia rate 54 otherwise normal. Vital Signs: 11/19 19:10 BP 127 / 75; Pulse 54; Resp 20; Temp 98.2; Pulse Ox 99% ; Weight 79.38 kg; Height 5 ft. me1 9 in. ; Pain 10/10; 20:00 BP 116 / 71; Pulse 44; Resp 9; Pulse Ox 96% on 2 lpm NC; vc1 21:00 BP 107 / 63; Pulse 45; Resp 12; Pulse Ox 96% on 2 lpm NC; vc1 22:58 BP 107 / 67; Pulse 45; Resp 14; Pulse Ox 96% ; vc1 19:10 Body Mass Index 25.84 (79.38 kg, 175.26 cm) me1 19:10 Pain Scale: Adult me1 [place] Coma Score: 11/20 01:12 Eye Response: spontaneous(4). Motor Response: obeys commands(6). Verbal Response: sp4 oriented(5). Total: 15. MDM: 11/19 19:08 Differential diagnosis: arrythmia, dehydration, stress disorder. Data reviewed: vital sp4 signs, nurses notes, old medical records, lab test result(s), radiologic studies, plain films. Consideration of Admission/Observation Escalation of care including admission/observation considered. ED course: Procedure: Chest Single View HISTORY: Chest pain COMPARISON: 2019 FINDINGS: The lungs appear clear of acute infiltrate. No significant pleural effusion noted. The heart is normal size. IMPRESSION: No acute abnormality is displayed. . ED course: Workup today is unremarkable. Patient is stable for discharge home. Vital signs are basically revealing bradycardia with normal blood pressure.. 19:11 Medical Screening Exam initiated 11/19 19:05 Order name: Basic Metabolic Panel; Complete Time: :17 11/19 19:05 Order name: CBC with Diff; Complete Time: :11/19 19:05 Order name: LFT's; Complete Time: :11/19 19:05 Order name: NT PRO-BNP; Complete Time: :11/19 19:05 Order name: Troponin HS; Complete Time: :11/19 19:05 Order name: XRAY Chest (1 view); Complete Time: :11/19 19:05 Order name: EKG; Complete Time: 19:06 11/19 19:05 Order name: Cardiac monitoring; Complete Time: 19:17 11/19 19:05 Order name: EKG - Nurse/Tech; Complete Time: 19:17 11/19 19:05 Order name: IV Saline Lock; Complete Time: 19:17 11/19 19:05 Order name: Labs collected and sent; Complete Time: 19:11/19 19:05 Order name: O2 Per Protocol; Complete Time: 19:11/19 19:05 Order name: O2 Sat Monitoring; Complete Time: 19: EC:08 Rate is 54 beats/min. Rhythm is regular, Sinus bradycardia. QRS Mobile is Normal. DE sp4 interval is normal. QRS interval is normal. QT interval is normal. No Q waves. T waves are Normal. No ST changes noted. Clinical impression: No evidence of ischemia. Interpreted by me. Reviewed by me. Administered Medications: 19:38 Drug: NS 0.9% IV 1000 ml IV at 1 bolus Per protocol; to be given as a bolus over 60 vc1 minutes Route: IV; Rate: 1 bolus; Site: right antecubital; 20:38 Follow up: IV Status: Completed infusion; IV Intake: 1000ml vc1 19:38 Drug: Droperidol IVP 1.25 mg IVP once Route: IVP; Site: right antecubital; vc1 23:01 Follow up: Response: No adverse reaction; Marked relief of symptoms vc1 19:38 Drug: Ondansetron IVP 4 mg IVP once; over 2 minutes Route: IVP; Site: right antecubital;vc1 23:01 Follow up: Response: No adverse reaction; Marked relief of symptoms vc1 Disposition Summary: 11/19/24 22:38 Discharge Ordered Notes: Location: Home sp4 Problem: new sp4 Symptoms: have improved sp4 Condition: Stable sp4 Diagnosis - Bradycardia, unspecified sp4 - Sinus Bradycardia , Generalized weakness, Acute viral gastroenteritis sp4 Followup: sp4 - With: Private Physician - When: 7 - 10 days - Reason: Discharge Instructions: - Discharge Summary Sheet sp4 - Bradycardia, Adult sp4 Forms: - Patient Portal Instructions sp4 Signatures: Dispatcher [employer] EDMS Sudha Murray RN RN vc1 Pedro Chase MD MD sp4 Chely Arzola RN RN me1 Corrections: (The following items were deleted from the chart) 19:06 19:06 BASIC METABOLIC PANEL+C.LAB.BRZ ordered. EDMS EDMS 19:06 19:06 CBC+H.LAB.BRZ ordered. EDMS EDMS 19:06 19:06 HEPATIC FUNCTION+C.LAB.BRZ ordered. EDMS EDMS 19:06 19:06 PROBNP+C.LAB.BRZ ordered. EDMS EDMS 19:06 19:06 Troponin High Sensitivity+C.LAB.BRZ ordered. EDMS EDMS
[2024-11-19 23:11] VITALS: TEMP 98.2
[2024-11-19 23:12] VITALS: O2SAT 96
[2024-11-19 23:14] VITALS: BP 107/67
--- NOTE | 2024-11-21 12:03 | EKG ---
Test Date: 2024-11-19 Test Time: 19:08:01 Surface Grinding Machine Hand: JORGE MEASUREMENT RESULTS: Intervals: Rate: 54 FL: 140 QRSD: 76 QT: 416 QTc: 394 [place]: P: 36 FL: 140 QRS: 80 T: 51 INTERPRETIVE STATEMENTS: Sinus bradycardia Otherwise normal ECG Compared to ECG 08/10/2019 02:14:04 Sinus rhythm no longer present Electronically Signed On 11-21-24 12:00:07 CDT by Jd Olmos
== END 2024-11-19 23:06 | disposition home or self-care (01) ==
LOC: ER 18:59
DX: R00.1 Bradycardia, unspecified (principal); R53.1 Weakness; A08.4 Viral intestinal infection, unspecified; I10 Essential (primary) hypertension; I25.2 Old myocardial infarction
CPT/HCPCS: 96361; 93005; 85025; 80048; 36415; 80076; 84484; 83880; 71045; 96375; 96374; 99285; J2405; J1790; J7030

== ENCOUNTER 2024-12-03 22:25 | Emergency (ER) | payer OTHER ==
[2024-12-03] MEDS ORDERED: NA CHLORIDE 0.9% 1,000 ML ONE (22:38)
[2024-12-03] MEDS ORDERED: ONDANSETRON 4 MG/2 ML VIAL ONE (22:50)
[2024-12-03] MEDS ORDERED: MORPHINE 4 MG/ML SYR ONE (22:51)
[2024-12-03 23:16] LABS: Specific Gravity 1.007 (1.005-1.030); Urine Bilirubin NEGATIVE (Negative); Urine Blood Negative (Negative); Urine Clarity Clear (Clear); Urine Color Colorless (Yellow); Urine Glucose NEGATIVE (Negative); Urine Ketones NEGATIVE (Negative); Urine Microscopic Reflex YN NO UMIC; Urine Nitrite NEGATIVE (Negative); Urine Protein NEGATIVE (Negative); Urine Urobilinogen Normal (Normal); Urine pH 5.5 (5.0-7.0)
[2024-12-03 23:35] LABS: Absolute Basophils 0.1 K/uL (0-0.5); Absolute Eosinophils 0.4 K/uL (0-0.5); Absolute Lymphocytes (CBC) 2.9 K/uL (0.7-4.9); Absolute Monocytes 0.6 K/uL (0.1-1.3); Absolute Neutrophil 5.6 K/uL (1.8-8.0); Basophils % 0.6 % (0-1.3); Eosinophils % 3.8 % (0-4.4); Hematocrit 44.7 % (39.6-49.0); Hemoglobin 15.5 g/dL (13.6-17.9); Lymphocytes % 30.3 % (15.3-44.8); MCH 29.5 pg (27.0-35.0); MCHC 34.7 g/dL (32.0-36.0); MCV 84.9 fL (80-100); MPV 8.7 fL (7.6-11.3); Monocytes % 6.6 % (3.3-12.3); Neutrophils % 58.7 % (41.7-73.7); Nucleated Red Blood Cells % 0.1 % (0-0); Platelets 253 thou/uL (152-406); RBC Red Blood Cell Count 5.26 M/uL (4.33-5.43); Red Cell Distribution Width 13.2 % (12.1-15.2)
[2024-12-03 23:48] LABS: Albumin 3.6 g/dL (3.4-5.0); Albumin/Globulin Ratio 0.9 (1.1-1.8); Anion Gap 8.3 mEq/L (5.0-15.0); Bilirubin Total 0.4 mg/dL (0.2-1.0); Globulin 3.9 g/dL (2.3-3.5); Potassium 3.3 mEq/L (3.5-5.1); Protein, Total 7.5 g/dL (6.4-8.2)
[2024-12-04] MEDS ORDERED: KETOROLAC 30 MG/ML INJ ONE (00:39)
[2024-12-04] MEDS ORDERED: POTASSIUM 25 MEQ EFFERV TAB ONE ×2 (00:51→00:53)
--- NOTE | 2024-12-04 01:07 | RAD REPORT ---
PROCEDURE: CT Abdomen and Pelvis Without Intravenous Contrast CLINICAL INDICATION: The patient is 44 years old and is Male; Flank pain. TECHNIQUE: Axial computed tomography images of the abdomen and pelvis without intravenous contrast. Sagittal a nd coronal reformatted images were created and reviewed. This CT exam was performed using one or more of the following dose reduction techniques: automated exposure control, adjustment of the mA a nd/or kV according to patient size, and/or use of iterative reconstruction technique. COMPARISON: CT Abdomen pelvis 03/31/2024. FINDINGS: LUNG BASES: Unremarkable No mass. No consolidation. ABDOMEN: LIVER: Unremarkable GALLBLADDER AND BILE DUCTS: Unremarkable No calcified stones. No ductal dilation. PANCREAS: Unremarkable No ductal dilation. SPLEEN: Unremarkable No splenomegaly. ADRENALS: Unremarkable No mass. KIDNEYS AND URETERS: Small nonobstructive stone in the superior pole the right kidney. No hydronephrosis or obstructive intrarenal or intraureteral stones. STOMACH AND BOWEL: Fecalization contents of multiple loops of small bowel. Nonspecific, but suggest s decreased motility. Colonic diverticulosis without evidence of acute diverticulitis. No obstruction. PELVIS: APPENDIX: No findings to suggest acute appendicitis. BLADDER: Unremarkable No stones. REPRODUCTIVE: Unremarkable as visualized. ABDOMEN and PELVIS: INTRAPERITONEAL SPACE: Unremarkable No free air. No significant fluid collection. BONES/JOINTS: Remote fractures of posterior lateral left 10th and 11th ribs. No dislocation. SOFT TISSUES: Small fat-containing left inguinal hernia. VASCULATURE: Unremarkable No abdominal aortic aneurysm. LYMPH NODES: Unremarkable No enlarged lymph nodes. IMPRESSION: 1. Allowing for lack of intravenous contrast, no acute abnormality of the abdomen or pelvis. 2. Small nonobstructive stone in the superior pole the right kidney. No hydronephrosis or obstructi ve intrarenal or intraureteral stones. 3. Fecalization contents of multiple loops of small bowel. Nonspecific, but suggests decreased mine lity. 4. Colonic diverticulosis without evidence of acute diverticulitis. Electronically signed by: Jonathan Hawley MD 12/04/2024 12:59 AM CDT RP Due to temporary technical issues with the PACS/GetThis reporting system, reports are being sandy d by the in-house radiologist without review as a courtesy to ensure prompt reporting the interpreting radiologist is fully responsible for the content of the report. Transcribed Date/Time: 12/04/2024 1:07 AM
[2024-12-04] MEDS ORDERED: LORAZEPAM 1 MG TABLET ONE (01:37)
[2024-12-04 02:14] LABS: PT Prothrombin Time 11.3 SECONDS (10-13.0); PTT, Activated Partial Thromb 29.6 SECONDS (27.2-37.4); Protime INR 0.99
--- NOTE | 2024-12-04 03:18 | RAD REPORT ---
PROCEDURE: CT Head Without Intravenous Contrast CLINICAL INDICATION: The patient is 44 years old and is Male; Dizziness;Syncope Bed Name: 19 TECHNIQUE: Axial computed tomography images of the head/brain without intravenous contrast. Sagittal and coron al reformatted images were created and reviewed. This CT exam was performed using one or more of the following dose reduction techniques: automated exposure control, adjustment of the mA and/or kV according to patient size, and/or use of iterative reconstruction technique. COMPARISON: 08/08/19 CT head FINDINGS: BRAIN: No extra-axial fluid collection. No intracranial hemorrhage. No transtentorial herniation. N o focal hughes-white matter differentiation abnormality. MIDLINE SHIFT: None. VENTRICLES: Unremarkable No ventriculomegaly. BONES/JOINTS: No fracture of the calvarium or visualized facial bones. SOFT TISSUES: Unremarkable SINUSES: No masses, bony erosion or evidence of acute sinusitis. MASTOID AIR CELLS: Unremarkable as visualized. No mastoid effusion. IMPRESSION: No acute intracranial abnormality. Electronically signed by: Jonathan Hawley MD 12/04/2024 03:02 AM CDT Due to temporary technical issues with the PACS/Pikum reporting system, reports are being sandy d by the in-house radiologist without review as a courtesy to ensure prompt reporting the interpreting radiologist is fully responsible for the content of the report. Transcribed Date/Time: 12/04/2024 3:17 AM
[2024-12-04 03:31] LABS: Magnesium 1.9 mg/dL (1.6-2.4); Troponin High Sensitivity 3.7 pg/mL (<58.9)
--- NOTE | 2024-12-04 03:47 | EDPHYS ---
Physician Documentation [facility] Name: Adolph Keenan Age: 44 yrs Sex: Male : 1980 Arrival Date: 12/03/2024 Time: 22:25 Bed 19 Private MD: ED Physician Hermelindo Moreira HPI: 12/03 22:33 This 44 yrs old Male presents to ER via Ambulatory with complaints of Urinary cp Retention. Historical: - Allergies: 22:40 No Known Allergies; br2 - PMHx: 22:40 Hypertension; br2 - PSHx: 22:40 Appendectomy; right hand; br2 - Immunization history:: Adult Immunizations up to date. - Infectious Disease History:: Denies. - Social history:: Smoking status: Patient denies any tobacco usage or history of. Patient uses alcohol, occasionally. Patient/guardian denies using street drugs. ROS: 22:35 : Positive for burning with urination, difficulty urinating, Negative for hematuria, cp 22:35 Constitutional: Negative for body aches, chills, fever, poor PO intake, cp 22:35 Back: Positive for flank pain, bilaterally, 22:35 Eyes: Negative for injury, pain, redness, and discharge, cp 22:35 Cardiovascular: Negative for chest pain, palpitations, 22:35 Respiratory: Negative for cough, shortness of breath, wheezing, 22:35 Abdomen/GI: Positive for abdominal pain, nausea, Negative for diarrhea, constipation, active vomiting, 22:35 All other systems are negative, cp Exam: 22:40 Constitutional: The patient appears in no acute distress, alert, awake, non-toxic, well cp developed, well nourished, uncomfortable, 22:40 Head/Face: Normocephalic, atraumatic. cp 22:40 Eyes: Periorbital structures: appear normal, Conjunctiva: normal, no exudate, no cp injection, Sclera: no appreciated abnormality, Lids and lashes: appear normal, bilaterally, 22:40 ENT: External ear(s): are unremarkable, Nose: is normal, Mouth: Lips: moist, Oral cp mucosa: moist, Posterior pharynx: Airway: no evidence of obstruction, patent, 22:40 Neck: ROM/movement: is normal, is supple, without pain, no range of motions limitations, 22:40 Chest/axilla: Inspection: normal, 22:40 Cardiovascular: Rate: normal, Rhythm: regular, Edema: is not appreciated, JVD: is not appreciated, 22:40 Respiratory: the patient does not display signs of respiratory distress, Respirations: normal, no use of accessory muscles, no retractions, labored breathing, is not present, Breath sounds: are clear throughout, no decreased breath sounds, no stridor, no wheezing, 22:40 Abdomen/GI: Inspection: abdomen appears normal, Bowel sounds: active, all quadrants, Palpation: soft, in all quadrants, moderate abdominal tenderness, in the anterior aspect of left lateral abdomen, posterior aspect of left lateral abdomen, anterior aspect of right lateral abdomen and posterior aspect of right lateral abdomen, rebound tenderness, is not appreciated, involuntary guarding, is not appreciated, 22:40 Back: vertebral tenderness, is not appreciated, 22:40 Skin: cellulitis, is not appreciated, no rash present. 22:40 Neuro: Orientation: to person, place \T\ time. Mentation: is normal, Motor: moves all cp fours, strength is normal, Sensation: is normal, 12/04 01:30 ECG was reviewed by the Attending Physician. Vital Signs: 12/03 22:38 BP 142 / 91; Pulse 67; Resp 18; Temp 97.7(O); Pulse Ox 100% on R/A; Weight 79.38 kg; br2 Height 5 ft. 9 in. ; Pain 10/10; 23:39 BP 138 / 91; Pulse 72; Resp 18; Pulse Ox 99% ; vc1 12/04 00:30 BP 116 / 81; Pulse 59; Resp 18; Pulse Ox 95% ; vc1 01:30 BP 121 / 79; Pulse 58; Resp 20; Pulse Ox 100% ; vc1 04:15 BP 116 / 75; Pulse 68; Resp 12; Pulse Ox 100% ; vc1 12/03 22:38 Body Mass Index 25.84 (79.38 kg, 175.26 cm) br2 12/03 22:38 Pain Scale: Adult br2 MDM: 12/03 22:30 Medical Screening Exam initiated 12/04 03:45 Data reviewed: vital signs, nurses notes, lab test result(s), EKG, radiologic studies, cp CT scan, plain films. 03:45 Differential diagnosis: UTI, urinary retention, prostatitis, kidney stone. I considered cp the following discharge prescriptions or medication management in the emergency department Medications were administered in the Emergency Department. See MAR. Independent interpretation of the following test(s) in the Emergency Department EKG: See my EKG interpretation above. Care significantly affected by the following chronic conditions: Hypertension. Counseling: I had a detailed discussion with the patient and/or guardian regarding the historical points, exam findings, and any diagnostic results supporting the discharge/admit diagnosis, lab results, radiology results, the need for outpatient follow up, a urologist, to return to the emergency department if symptoms worsen or persist or if there are any questions or concerns that arise at home. Response to treatment: the patient's symptoms have markedly improved after treatment, and as a result, I will discharge patient. 12/03 22:42 Order name: CBC with Diff; Complete Time: 00:41 cp 12/04 00:43 Interpretation: Reviewed. cp 12/03 22:42 Order name: CMP; Complete Time: 00:41 cp 12/04 00:41 Interpretation: Normal except: NA 135; K 3.3; GLUC 136; GLOB 3.9; A/G 0.9. cp 12/03 22:42 Order name: Lipase; Complete Time: 00:41 cp 12/04 00:44 Interpretation: Reviewed. cp 12/03 22:42 Order name: Urinalysis w/ reflexes; Complete Time: 23:24 cp 12/04 00:44 Interpretation: Reviewed. cp 12/04 01:23 Order name: Troponin High Sensitivity; Complete Time: 03:36 cp 12/04 03:37 Interpretation: Reviewed. cp 12/04 01:23 Order name: PT-INR; Complete Time: 03:36 cp 12/04 01:23 Order name: Ptt, Activated; Complete Time: 03:36 cp 12/04 01:23 Order name: Magnesium; Complete Time: 03:36 cp 12/03 23:24 Order name: CT Stone Protocol; Complete Time: 01:09 cp 12/04 01:23 Order name: CT Head Brain wo Cont cp 12/04 01:23 Order name: EKG; Complete Time: 01:23 cp 12/03 22:42 Order name: IV Saline Lock; Complete Time: 22:59 cp 12/03 22:42 Order name: Labs collected and sent; Complete Time: 22:59 cp 12/04 00:58 Order name: Jamel; Complete Time: 01:14 cp 04 01:23 Order name: EKG - Nurse/Tech; Complete Time: 01:57 cp EC:30 Rate is 60 beats/min. Rhythm is regular. MA interval is normal. QRS interval is normal. cp QT interval is normal. T waves are Inverted in lead aVR. Interpreted by me. Reviewed by me. Administered Medications: 12/03 23:00 Drug: NS 0.9% IV 1000 ml IV at 1 bolus Per protocol; to be given as a bolus over 60 vc1 minutes Route: IV; Rate: 1 bolus; Site: right antecubital; 12/04 00:54 Follow up: IV Status: Completed infusion; IV Intake: 1000ml vc1 12/03 23:00 Drug: Ondansetron IVP 4 mg IVP once; over 2 minutes Route: IVP; Site: right antecubital;vc1 23:15 Follow up: Response: No adverse reaction vc1 23:00 Drug: morphine IVP or IV 4 mg IVP once over 4 mins Route: IVP; Infused Over: 4 mins; vc1 Site: right antecubital; 23:15 Follow up: Response: No adverse reaction; Marked relief of symptoms; Pain is decreased vc1 12/04 00:53 Drug: Ketorolac IVP 30 mg IVP once Route: IVP; Site: right antecubital; vc1 01:15 Follow up: Response: No adverse reaction; Marked relief of symptoms; Pain is decreased vc1 01:14 Drug: Potassium PO Effervescent Tablet 50 mEq PO once; dissolve in 4 ounces of water or vc1 juice Route: PO; 03:56 Follow up: Response: No adverse reaction vc1 01:40 Drug: LORazepam PO 1 mg PO once Route: PO; vc1 03:55 Follow up: Response: No adverse reaction; Marked relief of symptoms; Anxiety decreased vc1 Disposition: 12/05 02:07 Co-signature as Attending Physician, Hermelindo Moreira MD I agree with the assessment and nishant plan of care. Disposition Summary: 12/04/24 03:47 Discharge Ordered Notes: Location: Home cp Problem: new cp Symptoms: have improved cp Condition: Stable cp Diagnosis - Syncope cp - Retention of urine, unspecified cp Followup: cp - With: Terry Rojas MD - When: 1 week - Reason: Recheck today's complaints Discharge Instructions: - Syncope cp - Acute Urinary Retention, Male cp - Discharge Summary Sheet vc1 Forms: - Antibiotic Education cp - Prescription Opioid Use cp - Patient Portal Instructions cp - Leadership Thank You Letter cp - Medication Reconciliation Form vc1 Signatures: Dispatcher [employer] EDMS Hermelindo Moreira MD MD cha Page, Corey, PA PA cp Calcote, Vanessa RN RN vc1 Ping Jay RN RN br2 Corrections: (The following items were deleted from the chart) 12/03 22:42 22:42 CBC+H.LAB.BRZ ordered. EDMS EDMS 22:42 22:42 COMPREHENSIVE METABOLIC PANEL+C.LAB.BRZ ordered. EDMS EDMS 22:42 22:42 LIPASE+C.LAB.BRZ ordered. EDMS EDMS 22:42 22:42 Urinalysis+U.LAB.BRZ ordered. EDMS EDMS
--- NOTE | 2024-12-04 03:47 | ER ---
Nurse's Notes [facility] Name: Adolph Keenan Age: 44 yrs Sex: Male : 1980 Arrival Date: 12/03/2024 Time: 22:25 Bed 19 Private MD: Diagnosis: Syncope;Retention of urine, unspecified Presentation: 12/03 22:38 Chief complaint: Patient states: FLANK PAIN FOR 2-3 DAYS....BEGAN HAVING TROUBLE WITH br2 URINATION/HEMATURIA YESTERDAY. WAS SEEN A COUPLE OF WEEKS AGO FOR SAME SYMPTOMS HAS APPT WITH UROLIGIST IN DECEMBER. Coronavirus screen: Client denies travel out of the [place] in the last 14 days. Ebola Screen: Patient denies exposure to infectious person. Initial Sepsis Screen: Does the patient meet any 2 criteria? No. Patient's initial sepsis screen is negative. Does the patient have a suspected source of infection? No. Patient's initial sepsis screen is negative. Risk Assessment: Do you want to hurt yourself or someone else? Patient reports no desire to harm self or others. Onset of symptoms was November 30, 2024. 22:38 Method Of Arrival: Ambulatory br2 22:38 Acuity: JOAQUIN 3 br2 Triage Assessment: 22:40 General: Appears uncomfortable, Behavior is calm, cooperative. Pain: Complains of pain br2 in coccyx, left lower back and right lower back Pain currently is 10 out of 10 on a pain scale. : Reports pain in suprapubic area flank(s), with urination, Pain is 10 out of 10 on a pain scale. Historical: - Allergies: 22:40 No Known Allergies; br2 - PMHx: 22:40 Hypertension; br2 - PSHx: 22:40 Appendectomy; right hand; br2 - Immunization history:: Adult Immunizations up to date. - Infectious Disease History:: Denies. - Social history:: Smoking status: Patient denies any tobacco usage or history of. Patient uses alcohol, occasionally. Patient/guardian denies using street drugs. Screenin:00 [facility] ED Fall Risk Assessment (Adult) History of falling in the last 3 months, vc1 including since admission No falls in past 3 months (0 pts) Confusion or Disorientation No (0 pts) Intoxicated or Sedated No (0 pts) Impaired Gait No (0 pts) Mobility Assist Device Used No (0 pt) Altered Elimination Yes (1 pt) Score/Fall Risk Level 0 - 2 = Low Risk Oriented to surroundings, Maintained a safe environment, Educated pt \\T\\ family on fall prevention, incl call for assistance when getting out of bed, Hourly rounding (assess needs \\T\\ fall precautionary measures) done. Abuse screen: Denies threats or abuse. Nutritional screening: No deficits noted. Tuberculosis screening: No symptoms or risk factors identified. Assessment: 23:03 General: Appears in no apparent distress. uncomfortable, well groomed, well developed, vc1 well nourished, Behavior is calm, cooperative, appropriate for age. Pain: Complains of pain in right lower quadrant and left lower quadrant and right lower back and left lower back Pain does not radiate. Quality of pain is described as sharp, Also complains of burning with urination. Neuro: Level of Consciousness is awake, alert, obeys commands, Oriented to person, place, time, situation, Appropriate for age. Cardiovascular: Heart tones S1 S2 present Capillary refill < 3 seconds Patient's skin is warm and dry. Respiratory: Airway is patent Respiratory effort is even, unlabored, Respiratory pattern is regular, symmetrical, Breath sounds are clear bilaterally. GI: Reports lower abdominal pain. : Reports burning with urination, inability to void, pain in bilateral lower quadrant(s) in lower back with urination, urinary frequency. EENT: No deficits noted. No signs and/or symptoms were reported regarding the EENT system. Derm: Skin is intact, is healthy with good turgor, Skin is dry, Skin is normal, Skin temperature is cool. Musculoskeletal: Circulation, motion, and sensation intact. Range of motion: intact in all extremities. 23:39 Reassessment: Patient and/or family updated on plan of care and expected duration. Pain vc1 level reassessed. Patient is alert, oriented x 3, equal unlabored respirations, skin warm/dry/pink. Patient states symptoms have improved. 04 00:45 Reassessment: Patient and/or family updated on plan of care and expected duration. Pain vc1 level reassessed. Patient is alert, oriented x 3, equal unlabored respirations, skin warm/dry/pink. Pain: Complains of pain in left lower quadrant and right lower quadrant. 01:15 Reassessment: Called in room by pts mom, patient unresponsive heart rate 32, provider vc1 notified. Pt opens his eyes and responds to verbal stimuli. Heart rate increases back to normal range. 01:30 Reassessment: Patient and/or family updated on plan of care and expected duration. Pain vc1 level reassessed. General: Appears in no apparent distress. Behavior is cooperative, anxious. Cardiovascular: Reports "heart racing". 02:20 General: Pt states that he has seen a billboard installer in the past and that when he gets vc1 overstimulated his heart rate drops and the billboard installer suggested a pacemaker would be needed. . 03:53 Reassessment: Pt states he is feeling better and would like to go home after the vc1 medication wears off. Pt received ativan PO 2.5 hours ago. Vital Signs: 12/03 22:38 BP 142 / 91; Pulse 67; Resp 18; Temp 97.7(O); Pulse Ox 100% on R/A; Weight 79.38 kg; br2 Height 5 ft. 9 in. ; Pain 10/10; 23:39 BP 138 / 91; Pulse 72; Resp 18; Pulse Ox 99% ; vc1 04 00:30 BP 116 / 81; Pulse 59; Resp 18; Pulse Ox 95% ; vc1 01:30 BP 121 / 79; Pulse 58; Resp 20; Pulse Ox 100% ; vc1 04:15 BP 116 / 75; Pulse 68; Resp 12; Pulse Ox 100% ; vc1 12/03 22:38 Body Mass Index 25.84 (79.38 kg, 175.26 cm) br2 12/03 22:38 Pain Scale: Adult br2 ED Course: 12/03 22:26 Patient arrived in ED. [id number] 22:30 Hermelindo Garcia PA is PHCP. cp 22:30 Hermelindo Moreira MD is Attending Physician. cp 22:40 Triage completed. br2 22:40 Arm band placed on right wrist. br2 22:42 Sudha Murray, RUTH is Primary Nurse. vc1 22:59 CBC with Diff Sent. vc1 22:59 CMP Sent. vc1 22:59 Lipase Sent. vc1 22:59 Urinalysis w/ reflexes Sent. vc1 23:00 Initial lab(s) drawn, by me, sent to lab. Urine collected: clean catch specimen, clear. vc1 Inserted saline lock: 20 gauge in right antecubital area, using aseptic technique. Blood collected. Flushed with 10 mL NS. 23:01 Patient has correct armband on for positive identification. Bed in low position. Call vc1 light in reach. Provided Education on: call light. Pulse ox on. NIBP on. 12/04 00:08 CT Stone Protocol In Process Unspecified. EDMS 01:14 No provider procedures requiring assistance completed. Mccullough cath inserted, using vc1 sterile technique, 16 Fr., by me, balloon inflated, to gravity drainage. 02:03 CT Head Brain wo Cont In Process Unspecified. EDMS 03:43 Terry Rojas MD is Referral Physician. cp 04:41 IV discontinued, intact, bleeding controlled, No redness/swelling at site. Pressure vc1 dressing applied. Administered Medications: 12/03 23:00 Drug: NS 0.9% IV 1000 ml IV at 1 bolus Per protocol; to be given as a bolus over 60 vc1 minutes Route: IV; Rate: 1 bolus; Site: right antecubital; 12/04 00:54 Follow up: IV Status: Completed infusion; IV Intake: 1000ml vc1 12/03 23:00 Drug: Ondansetron IVP 4 mg IVP once; over 2 minutes Route: IVP; Site: right antecubital;vc1 23:15 Follow up: Response: No adverse reaction vc1 23:00 Drug: morphine IVP or IV 4 mg IVP once over 4 mins Route: IVP; Infused Over: 4 mins; vc1 Site: right antecubital; 23:15 Follow up: Response: No adverse reaction; Marked relief of symptoms; Pain is decreased vc1 12/04 00:53 Drug: Ketorolac IVP 30 mg IVP once Route: IVP; Site: right antecubital; vc1 01:15 Follow up: Response: No adverse reaction; Marked relief of symptoms; Pain is decreased vc1 01:14 Drug: Potassium PO Effervescent Tablet 50 mEq PO once; dissolve in 4 ounces of water or vc1 juice Route: PO; 03:56 Follow up: Response: No adverse reaction vc1 01:40 Drug: LORazepam PO 1 mg PO once Route: PO; vc1 03:55 Follow up: Response: No adverse reaction; Marked relief of symptoms; Anxiety decreased vc1 Medication: 12/03 23:03 VIS not applicable for this client. vc1 Intake: 12/04 00:54 IV: 1000ml; Total: 1000ml. vc1 Outcome: 03:47 Discharge ordered by . hannah 04:41 Discharged to home ambulatory, with family, vc1 04:41 Condition: stable 04:41 Discharge instructions given to patient, family, Instructed on discharge instructions, follow up and referral plans. Demonstrated understanding of instructions, follow-up care, 04:41 Patient left the ED. vc1 Signatures: Dispatcher [employer] EDMS Hermelindo Garcia PA PA cp Jeffries, Jennifer [id number] Sudha Murray RN RN vc1 Ping Jay RN RN br2
[2024-12-04 04:50] VITALS: TEMP 97.7
[2024-12-04 04:53] VITALS: O2SAT 100
[2024-12-04 04:54] VITALS: BP 116/75
--- NOTE | 2024-12-05 11:31 | EKG ---
Test Date: 2024-12-04 Test Time: 01:24:25 Corporate Development Associate: [employer] MEASUREMENT RESULTS: Intervals: Rate: 60 PA: 150 QRSD: 82 QT: 416 QTc: 416 [place] [address]: P: 51 PA: 150 QRS: 85 T: 48 INTERPRETIVE STATEMENTS: Normal sinus rhythm Normal ECG Compared to ECG 11/19/2024 19:08:01 Sinus bradycardia no longer present Electronically Signed On 12-05-24 11:29:06 CDT by Jd Olmos
== END 2024-12-04 04:41 | disposition home or self-care (01) ==
LOC: ER 22:25
DX: R55 Syncope and collapse (principal); R33.9 Retention of urine, unspecified; R30.0 Dysuria
CPT/HCPCS: 96361; 93005; 85025; 36415; 83735; 85610; 85730; 81003; 84484; 83690; 80053; 70450; 76377; 74176; 51702; 96375; 96374; 99285; J2405; J7030

== ENCOUNTER 2024-12-04 20:46 | Emergency (ER) | payer OTHER ==
[2024-12-04] MEDS ORDERED: ONDANSETRON 4 MG/2 ML VIAL ONE (21:09)
[2024-12-04] MEDS ORDERED: LORazepam 2 MG/ML VIAL ONE (21:21)
[2024-12-04] MEDS ORDERED: ASPIRIN 81 MG CHEWABLE TABLET ONE (21:22)
--- NOTE | 2024-12-04 21:55 | RAD REPORT ---
EXAMINATION: ONE VIEW CHEST XR CLINICAL INDICATION: Male, 44 years old.,CHEST PAIN TECHNIQUE: Frontal chest projection is submitted. Examination is limited by patient positioning and t echnique. COMPARISON: 11/19/2024 FINDINGS: The lungs are well inflated and clear. No pneumothorax or sizable effusion. The heart is normal in s ize. Mediastinal contours are unremarkable. IMPRESSION: No acute intrathoracic abnormalities.
[2024-12-04 22:12] LABS: Barbiturates NEGATIVE (NEGATIVE); Benzodiazepines NEGATIVE (NEGATIVE); Cocaine NEGATIVE (NEGATIVE); METHAMPHETAM NEGATIVE (NEGATIVE); Methadone NEGATIVE (NEGATIVE); Opiates NEGATIVE (NEGATIVE); Phencyclidine NEGATIVE (NEGATIVE); THC Cannibis NEGATIVE (NEGATIVE)
[2024-12-04 22:13] LABS: Specific Gravity 1.007 (1.005-1.030); Sqamous Epithelial None Seen /HPF (None Seen); Urine Bacteria None Seen /HPF (<20); Urine Bilirubin NEGATIVE (Negative); Urine Blood Negative (Negative); Urine Clarity Clear (Clear); Urine Color Colorless (Yellow); Urine Culture Reflex Order NOT NEEDED; Urine Glucose NEGATIVE (Negative); Urine Ketones NEGATIVE (Negative); Urine Micro Reflex YN NO BILL MICROSCOPIC; Urine Nitrite NEGATIVE (Negative); Urine Protein NEGATIVE (Negative); Urine RBC None Seen /HPF (None Seen); Urine Urobilinogen Normal (Normal); Urine WBC <5 /HPF (<5)
[2024-12-04 22:15] LABS: PT Prothrombin Time 11.2 SECONDS (10-13.0); Protime INR 0.98
[2024-12-04 22:17] LABS: Absolute Eosinophils 0.3 K/uL (0-0.5); Absolute Lymphocytes (CBC) 2.6 K/uL (0.7-4.9); Absolute Monocytes 0.7 K/uL (0.1-1.3); Absolute Neutrophil 5.4 K/uL (1.8-8.0); Basophils % 0.4 % (0-1.3); Eosinophils % 2.9 % (0-4.4); Hematocrit 44.8 % (39.6-49.0); Hemoglobin 15.2 g/dL (13.6-17.9); Lymphocytes % 28.8 % (15.3-44.8); MCH 29.1 pg (27.0-35.0); MCHC 33.9 g/dL (32.0-36.0); MCV 85.9 fL (80-100); MPV 8.6 fL (7.6-11.3); Monocytes % 7.6 % (3.3-12.3); Neutrophils % 60.3 % (41.7-73.7); Platelets 265 thou/uL (152-406); RBC Red Blood Cell Count 5.21 M/uL (4.33-5.43); Red Cell Distribution Width 13.2 % (12.1-15.2)
[2024-12-04 22:27] LABS: ALT/SGPT 28 U/L (16-61); AST/SGOT 16 U/L (15-37); Albumin 3.5 g/dL (3.4-5.0); Alkaline Phosphatase 85 U/L (45-117); Anion Gap 9.7 mEq/L (5.0-15.0); BUN Blood Urea Nitrogen 10 mg/dL (7-18); Bicarbonate 26 mEq/L (21-32); Bilirubin Total 0.5 mg/dL (0.2-1.0); Globulin 3.6 g/dL (2.3-3.5); Glomerular Filtration Rate 92 ml/min (=/>90); Glucose Level 99 mg/dL (74-106); Magnesium 2.3 mg/dL (1.6-2.4); NT PRO-BNP 41 pg/mL (<125); Potassium 3.7 mEq/L (3.5-5.1); Protein, Total 7.1 g/dL (6.4-8.2); Sodium Level 136 mEq/L (136-145); Troponin High Sensitivity 5.1 pg/mL (<58.9)
[2024-12-04 22:30] LABS: Bilirubin Direct < 0.2 mg/dL (0-0.2); Bilirubin Indirect, Calculated 0.3 mg/dL (0.2-0.8)
[2024-12-05] MEDS ORDERED: NA CHLORIDE 0.9% 1,000 ML ONE (00:27)
--- NOTE | 2024-12-05 02:19 | EDPHYS ---
Physician Documentation [facility] Name: Adolph Keenan Age: 44 yrs Sex: Male : 1980 Arrival Date: 12/04/2024 Time: 20:46 Bed 4 Private MD: ED Physician Hermelindo Moreira HPI: 12/04 20:55 This 44 yrs old Male presents to ER via Ambulatory with complaints of Chest cp Pain. 20:55 The patient or guardian reports chest pain that is located primarily in the anterior cp chest wall. 20:55 Onset: yesterday, and became worse today. The pain does not radiate. Associated signs cp and symptoms: Pertinent negatives: abdominal pain, cough, lower extremity pain, lower extremity swelling, shortness of breath, syncope, vomiting. The chest pain is described as a pressure. Duration: The patient or guardian reports a single episode, that is still ongoing. Historical: - Allergies: 21:00 No Known Allergies; al5 - PMHx: 21:00 Hypertension; CO (Unknown); al5 - PSHx: 21:00 Appendectomy; right hand; al5 - Immunization history:: Adult Immunizations up to date. - Infectious Disease History:: Denies. - Social history:: Smoking status: Patient denies any tobacco usage or history of. ROS: 21:00 Cardiovascular: Positive for chest pain, cp 21:00 Constitutional: Negative for body aches, chills, fever, poor PO intake, cp 21:00 Eyes: Negative for injury, pain, redness, and discharge, cp 21:00 ENT: Negative for drainage from ear(s), ear pain, sore throat, difficulty swallowing, difficulty handling secretions, 21:00 Respiratory: Negative for cough, shortness of breath, wheezing, 21:00 Abdomen/GI: Negative for abdominal pain, vomiting, diarrhea, constipation, 21:00 Back: Negative for pain at rest, pain with movement, 21:00 Neuro: Negative for altered mental status, headache, numbness, syncope, near syncope, weakness, 21:00 All other systems are negative, Exam: 21:05 ECG was reviewed by the Attending Physician. cp 21:10 Constitutional: The patient appears in no acute distress, alert, awake, cp non-diaphoretic, non-toxic, well developed, well nourished, uncomfortable, 21:10 Head/Face: Normocephalic, atraumatic. cp 21:10 Eyes: Periorbital structures: appear normal, Conjunctiva: normal, no exudate, no injection, Sclera: no appreciated abnormality, Lids and lashes: appear normal, bilaterally, 21:10 ENT: External ear(s): are unremarkable, Nose: is normal, Mouth: Lips: moist, Oral mucosa: moist, Posterior pharynx: Airway: no evidence of obstruction, patent, 21:10 Neck: ROM/movement: is normal, is supple, without pain, no range of motions limitations, 21:10 Chest/axilla: Inspection: normal, 21:10 Cardiovascular: Rate: normal, Rhythm: regular, Edema: is not appreciated, JVD: is not appreciated, 21:10 Respiratory: the patient does not display signs of respiratory distress, Respirations: normal, no use of accessory muscles, no retractions, labored breathing, is not present, Breath sounds: are clear throughout, no decreased breath sounds, no stridor, no wheezing, 21:10 Abdomen/GI: Inspection: abdomen appears normal, Palpation: abdomen is soft and non-tender, in all quadrants, 21:10 Back: pain, is absent, ROM is normal, 21:10 Neuro: Orientation: to person, place \T\ time. Mentation: is normal, Motor: moves all fours, strength is normal, Sensation: is normal, Vital Signs: 20:58 BP 126 / 94; Pulse 62; Resp 18; Temp 97.6; Pulse Ox 97% on R/A; Weight 79.38 kg; Height al5 5 ft. 9 in. ; Pain 10/10; 21:48 BP 116 / 79; Pulse 63; Resp 15; Pulse Ox 98% ; vc1 22:34 BP 105 / 65; Pulse 54; Resp 12; Pulse Ox 98% ; vc1 23:09 BP 92 / 54; Pulse 45; Resp 12; Pulse Ox 99% ; vc1 04/07 00:00 BP 95 / 76; Pulse 46; Resp 12; Pulse Ox 99% ; al5 00:30 BP 112 / 72; Pulse 46; Resp 12; Pulse Ox 97% ; al5 01:00 BP 94 / 54; Pulse 43; Resp 13; Pulse Ox 100% ; al5 01:30 BP 96 / 70; Pulse 63; Resp 14; Pulse Ox 100% ; al5 02:00 BP 100 / 49; Pulse 50; Resp 15; Pulse Ox 99% ; al5 02:30 BP 129 / 88; Pulse 60; Resp 16; Pulse Ox 99% ; al5 12/04 20:58 Body Mass Index 25.84 (79.38 kg, 175.26 cm) al5 12/04 20:58 Pain Scale: Adult al5 MDM: 12/04 20:49 Medical Screening Exam initiated cp 12/05 02:18 The patient was given aspirin in the Emergency Department. cp 02:18 Differential diagnosis: acute myocardial infarction, anxiety, cholecystitis, cp Cholelithiasis pericarditis, pleurisy, pneumonia, pneumothorax, pulmonary embolus, stable angina, thoracic aortic disection, unstable angina. Data reviewed: vital signs, nurses notes, lab test result(s), EKG, radiologic studies, plain films, and as a result, I will discharge patient. I considered the following discharge prescriptions or medication management in the emergency department Medications were administered in the Emergency Department. See MAR. Independent interpretation of the following test(s) in the Emergency Department EKG: See my EKG interpretation above. Care significantly affected by the following chronic conditions: Hypertension. 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 Response to treatment: the patient's symptoms have markedly improved after treatment, and as a result, I will discharge patient. Special discussion: Based on the patient's history, exam, and Dx evaluation, there is no indication for emergent intervention or inpatient Tx. It is understood by the patient/guardian that if the Sx's persist or worsen they need to return immediately for re-evaluation. 12/04 20:51 Order name: Basic Metabolic Panel; Complete Time: 22:40 cp 12/04 20:51 Order name: CBC with Diff; Complete Time: 22:40 cp 12/04 20:51 Order name: LFT's; Complete Time: 22:40 cp 12/04 20:51 Order name: Magnesium; Complete Time: 22:40 cp 12/04 20:51 Order name: NT PRO-BNP; Complete Time: 22:40 cp 12/04 20:51 Order name: PT-INR; Complete Time: 22:40 cp 12/04 20:51 Order name: Troponin HS; Complete Time: 22:40 cp 12/04 21:28 Order name: Urinalysis W/Microscopic; Complete Time: 22:40 cp 12/04 21:28 Order name: UDS; Complete Time: 22:40 cp 12/04 23:56 Order name: Troponin High Sensitivity; Complete Time: 02:14 cp 12/05 02:14 Interpretation: Reviewed. cp 12/04 20:51 Order name: XRAY Chest (1 view); Complete Time: 22:40 cp 12/04 20:50 Order name: EKG - Nurse/Tech; Complete Time: 20:58 cp 12/04 20:51 Order name: Cardiac monitoring; Complete Time: 20:58 cp 12/04 20:51 Order name: IV Saline Lock; Complete Time: 21:10 cp 12/04 20:51 Order name: Labs collected and sent; Complete Time: 21:10 cp 12/04 20:51 Order name: O2 Per Protocol; Complete Time: 20:58 cp 12/04 20:51 Order name: O2 Sat Monitoring; Complete Time: 20:58 cp EC/06 21:05 Rate is 62 beats/min. Rhythm is regular. IL interval is normal. QRS interval is normal. cp QT interval is normal. T waves are Inverted in lead aVR. Interpreted by me. Reviewed by me. Administered Medications: 21:27 Drug: Ondansetron IVP 4 mg IVP once; over 2 minutes Route: IVP; Site: left forearm; vc1 12/05 02:31 Follow up: Response: No adverse reaction al5 12/04 21:27 Drug: Ativan IVP 0.5 mg IVP once Route: IVP; Site: left forearm; vc1 12/05 02:31 Follow up: Response: No adverse reaction; Pain is decreased al5 12/04 21:27 Drug: Aspirin PO Chewable Tablet 324 mg PO once; 81 mg tablets x 4 Route: PO; vc1 12/05 02:31 Follow up: Response: No adverse reaction; Pain is decreased al5 00:29 Drug: NS 0.9% IV 1000 ml IV at 1000 ml once; to be given as a bolus over 60 minutes jb4 Route: IV; Rate: 1000 ml; Site: left forearm; 02:31 Follow up: Response: No adverse reaction; IV Status: Completed infusion; IV Intake: al5 1000ml Disposition: 04:52 Co-signature as Attending Physician, Hermelindo Moreira MD I agree with the assessment and [facility] plan of care. Disposition Summary: 12/05/24 02:19 Discharge Ordered Notes: Location: Home cp Problem: new cp Symptoms: have improved cp Condition: Stable cp Diagnosis - Chest pain, unspecified cp Followup: cp - With: Desmond Mata MD - When: 2 - 3 days - Reason: Recheck today's complaints Discharge Instructions: - Discharge Summary Sheet cp - Nonspecific Chest Pain, Adult cp - Aspirin and Your Heart cp Forms: - Medication Reconciliation Form cp - Antibiotic Education cp - Prescription Opioid Use cp - Patient Portal Instructions cp - Leadership Thank You Letter cp Signatures: Dispatcher [employer] Hermelindo Palafox MD MD cha Page, Corey, PA PA cp Iker Smith, RN RN jb4 Sudha Murray RN RN vc1 Tierney Hill RN RN al5 Corrections: (The following items were deleted from the chart) 12/04 20:51 20:51 BASIC METABOLIC PANEL+C.LAB.BRZ ordered. EDKS EDMS 20:51 20:51 CBC+H.LAB.BRZ ordered. EDMS EDMS 20:51 20:51 HEPATIC FUNCTION+C.LAB.BRZ ordered. EDMS EDMS 20:51 20:51 MAGNESIUM+C.LAB.BRZ ordered. EDKS EDMS 20:51 20:51 PROBNP+C.LAB.BRZ ordered. EDMS EDMS 20:51 20:51 PROTIME (+INR)+COAG.LAB.BRZ ordered. EDMS EDMS 20:51 20:51 Troponin High Sensitivity+C.LAB.BRZ ordered. EDMS EDMS 20:52 20:51 Chest Single View+RAD.RAD.BRZ ordered. EDMS EDMS 21:29 21:29 Urinalysis W/Microscopic+U.LAB.BRZ ordered. EDMS EDMS 21:29 21:29 URINE DRUG SCREEN+UC.LAB.BRZ ordered. EDMS EDMS 21:57 21:14 Urinalysis+U.LAB.BRZ ordered. EDMS EDMS
--- NOTE | 2024-12-05 02:19 | ER ---
Nurse's Notes [facility] Name: Adolph Keenan Age: 44 yrs Sex: Male : 1980 Arrival Date: 12/04/2024 Time: 20:46 Bed 4 Private MD: Diagnosis: Chest pain, unspecified Presentation: 12/04 20:58 Chief complaint: Patient states: c/o CP, SOB, and nausea since last night. Coronavirus al5 screen: At this time, the client does not indicate any symptoms associated with coronavirus-19. Ebola Screen: No symptoms or risks identified at this time. Initial Sepsis Screen: Does the patient meet any 2 criteria? No. Patient's initial sepsis screen is negative. Does the patient have a suspected source of infection? No. Patient's initial sepsis screen is negative. Risk Assessment: Do you want to hurt yourself or someone else? Patient reports no desire to harm self or others. Note has an appointment with damage prevention coordinator next week for a stent. Onset of symptoms was December 03, 2024. 20:58 Method Of Arrival: Ambulatory al5 20:58 Acuity: JOAQUIN 2 al5 Triage Assessment: 21:00 General: Appears in no apparent distress. uncomfortable, Behavior is calm, cooperative. al5 Pain: Complains of pain in anterior aspect of left upper chest Pain currently is 10 out of 10 on a pain scale. Quality of pain is described as pressure, Pain began 1 day ago. EENT: No signs and/or symptoms were reported regarding the EENT system. Neuro: Level of Consciousness is awake, alert, obeys commands, Oriented to person, place, time, situation. Cardiovascular: Capillary refill < 3 seconds Patient's skin is warm and dry. Rhythm is sinus rhythm. Respiratory: Airway is patent Respiratory effort is even, unlabored, Respiratory pattern is regular, symmetrical. GI: Abdomen is flat, non-distended, Reports nausea. : No signs and/or symptoms were reported regarding the genitourinary system. Derm: Skin is intact, is healthy with good turgor, Skin is pink, warm \T\ dry. normal. Musculoskeletal: No signs and/or symptoms reported regarding the musculoskeletal system. Historical: - Allergies: 21:00 No Known Allergies; al5 - PMHx: 21:00 Hypertension; AR (Unknown); al5 - PSHx: 21:00 Appendectomy; right hand; al5 - Immunization history:: Adult Immunizations up to date. - Infectious Disease History:: Denies. - Social history:: Smoking status: Patient denies any tobacco usage or history of. Screenin:02 [facility] ED Fall Risk Assessment (Adult) History of falling in the last 3 months, al5 including since admission No falls in past 3 months (0 pts) Confusion or Disorientation No (0 pts) Intoxicated or Sedated No (0 pts) Impaired Gait No (0 pts) Mobility Assist Device Used No (0 pt) Altered Elimination No (0 pt) Score/Fall Risk Level 0 - 2 = Low Risk Oriented to surroundings, Maintained a safe environment, Hourly rounding (assess needs \T\ fall precautionary measures) done. Abuse screen: Denies threats or abuse. Denies injuries from another. Nutritional screening: No deficits noted. Tuberculosis screening: No symptoms or risk factors identified. Assessment: 21:02 Reassessment: see triage assessment. Pain: Pain radiates to left arm. al5 21:48 Reassessment: Patient appears in no apparent distress at this time. No changes from vc1 previously documented assessment. Patient and/or family updated on plan of care and expected duration. Pain level reassessed. Patient is alert, oriented x 3, equal unlabored respirations, skin warm/dry/pink. 22:34 Reassessment: Patient appears in no apparent distress at this time. Patient and/or vc1 family updated on plan of care and expected duration. Pain level reassessed. Patient is alert, oriented x 3, equal unlabored respirations, skin warm/dry/pink. Patient states symptoms have improved. 23:09 Reassessment: Patient appears in no apparent distress at this time. No changes from vc1 previously documented assessment. Patient and/or family updated on plan of care and expected duration. Pain level reassessed. Patient is alert, oriented x 3, equal unlabored respirations, skin warm/dry/pink. 12/05 02:31 Reassessment: Patient appears in no apparent distress at this time. Patient and/or al5 family updated on plan of care and expected duration. Pain level reassessed. Patient is alert, oriented x 3, equal unlabored respirations, skin warm/dry/pink. Patient states feeling better. Patient states symptoms have improved. Vital Signs: 12/04 20:58 BP 126 / 94; Pulse 62; Resp 18; Temp 97.6; Pulse Ox 97% on R/A; Weight 79.38 kg; Height al5 5 ft. 9 in. ; Pain 10/10; 21:48 BP 116 / 79; Pulse 63; Resp 15; Pulse Ox 98% ; vc1 22:34 BP 105 / 65; Pulse 54; Resp 12; Pulse Ox 98% ; vc1 23:09 BP 92 / 54; Pulse 45; Resp 12; Pulse Ox 99% ; vc1 04 00:00 BP 95 / 76; Pulse 46; Resp 12; Pulse Ox 99% ; al5 00:30 BP 112 / 72; Pulse 46; Resp 12; Pulse Ox 97% ; al5 01:00 BP 94 / 54; Pulse 43; Resp 13; Pulse Ox 100% ; al5 01:30 BP 96 / 70; Pulse 63; Resp 14; Pulse Ox 100% ; al5 02:00 BP 100 / 49; Pulse 50; Resp 15; Pulse Ox 99% ; al5 02:30 BP 129 / 88; Pulse 60; Resp 16; Pulse Ox 99% ; al5 12/04 20:58 Body Mass Index 25.84 (79.38 kg, 175.26 cm) al5 12/04 20:58 Pain Scale: Adult al5 ED Course: 12/04 20:47 Patient arrived in ED. jj6 20:48 Hermelindo Garcia PA is PHCP. cp 20:48 Hermelindo Moreira MD is Attending Physician. cp 20:58 Tierney Hill, RUTH is Primary Nurse. al5 21:00 Triage completed. al5 21:02 Arm band placed on right wrist. Patient placed in the treatment room, in view of staff al5 members, on color television console monitor, on pulse oximetry. 21:02 Patient has correct armband on for positive identification. Bed in low position. Call al5 light in reach. Side rails up X2. Provided Education on: plan of care. Client placed on continuous cardiac and pulse oximetry monitoring. NIBP monitoring applied. panel monitor on. 21:03 No provider procedures requiring assistance completed. Patient maintains SpO2 al5 saturation greater than 95% on room air. 21:10 Basic Metabolic Panel Sent. vc1 21:10 CBC with Diff Sent. vc1 21:10 LFT's Sent. vc1 21:10 Magnesium Sent. vc1 21:10 NT PRO-BNP Sent. vc1 21:10 PT-INR Sent. vc1 21:10 Troponin HS Sent. vc1 21:12 Inserted saline lock: 20 gauge in left forearm, using aseptic technique. Blood vc1 collected. Flushed with 10 mL NS. 21:28 XRAY Chest (1 view) In Process Unspecified. EDAL 12/05 02:17 Desmond Mata MD is Referral Physician. cp 02:38 IV discontinued, intact, bleeding controlled, No redness/swelling at site. Pressure al5 dressing applied. Administered Medications: 12/04 21:27 Drug: Ondansetron IVP 4 mg IVP once; over 2 minutes Route: IVP; Site: left forearm; vc1 12/05 02:31 Follow up: Response: No adverse reaction al5 12/04 21:27 Drug: Ativan IVP 0.5 mg IVP once Route: IVP; Site: left forearm; vc1 12/05 02:31 Follow up: Response: No adverse reaction; Pain is decreased al5 12/04 21:27 Drug: Aspirin PO Chewable Tablet 324 mg PO once; 81 mg tablets x 4 Route: PO; vc1 12/05 02:31 Follow up: Response: No adverse reaction; Pain is decreased al5 00:29 Drug: NS 0.9% IV 1000 ml IV at 1000 ml once; to be given as a bolus over 60 minutes jb4 Route: IV; Rate: 1000 ml; Site: left forearm; 02:31 Follow up: Response: No adverse reaction; IV Status: Completed infusion; IV Intake: al5 1000ml Medication: 12/04 21:02 VIS not applicable for this client. al5 Intake: 12/05 02:31 IV: 1000ml; Total: 1000ml. al5 Outcome: 02:19 Discharge ordered by . cp 02:38 Discharged to home ambulatory, with family, al5 02:38 Condition: good 02:38 Discharge instructions given to patient, Instructed on discharge instructions, follow up and referral plans. Demonstrated understanding of instructions, follow-up care, 02:38 Patient left the ED. al5 Signatures: Dispatcher [employer] EDAL Hermelindo Garcia PA PA cp Iker Smith, RUTH RN jb4 Ayleen Chowdhury6 Sudha Murray RN RN vc1 Tierney Hill RN RN al5 Corrections: (The following items were deleted from the chart) 12/04 21:57 21:27 Urinalysis+U.LAB.BRZ drawn and sent. vc1 EDMS
[2024-12-05 02:59] VITALS: TEMP 97.6
[2024-12-05 03:26] VITALS: BP 129/88; O2SAT 99
--- NOTE | 2024-12-06 10:58 | EKG ---
Test Date: 2024-12-04 Test Time: 20:58:21 Medical Office Receptionist: MEASUREMENT RESULTS: Intervals: Rate: 62 DC: 144 QRSD: 82 QT: 398 QTc: 403 [place]: P: 42 DC: 144 QRS: 84 T: 33 INTERPRETIVE STATEMENTS: Normal sinus rhythm Normal ECG Compared to ECG 12/04/2024 01:24:25 No significant changes Electronically Signed On 12-06-24 10:55:39 CDT by Jd Olmos
== END 2024-12-05 02:38 | disposition home or self-care (01) ==
LOC: ER 20:46
DX: R07.89 Other chest pain (principal); I10 Essential (primary) hypertension; I25.2 Old myocardial infarction
CPT/HCPCS: 96361; 93005; 85025; 81001; 80048; 36415; 83735; 85610; 80076; 84484 ×2; 83880; 80307; 71045; 96375; 96374; 99285; J2405; J7030

== ENCOUNTER 2024-12-17 00:04 | Emergency (ER) | payer OTHER, SELFPAY ==
[2024-12-17] MEDS ORDERED: ONDANSETRON 4 MG/2 ML VIAL ONE (00:15)
[2024-12-17] MEDS ORDERED: MORPHINE 4 MG/ML SYR ONE (00:15)
[2024-12-17] MEDS ORDERED: NA CHLORIDE 0.9% 1,000 ML ONE (00:15)
[2024-12-17 00:35] LABS: Absolute Eosinophils 0.1 K/uL (0-0.5); Absolute Monocytes 0.4 K/uL (0.1-1.3); Absolute Neutrophil 6.8 K/uL (1.8-8.0); Basophils % 0.5 % (0-1.3); Eosinophils % 0.6 % (0-4.4); Hematocrit 44.3 % (39.6-49.0); Hemoglobin 15.6 g/dL (13.6-17.9); Lymphocytes % 21.7 % (15.3-44.8); MCH 29.8 pg (27.0-35.0); MCHC 35.1 g/dL (32.0-36.0); MPV 8.7 fL (7.6-11.3); Monocytes % 4.5 % (3.3-12.3); Neutrophils % 72.7 % (41.7-73.7); Nucleated Red Blood Cells % 0.1 % (0-0); Platelets 262 thou/uL (152-406); RBC Red Blood Cell Count 5.21 M/uL (4.33-5.43); Red Cell Distribution Width 13.3 % (12.1-15.2)
[2024-12-17 00:59] LABS: Albumin 3.6 g/dL (3.4-5.0); Albumin/Globulin Ratio 0.9 (1.1-1.8); Anion Gap 8.8 mEq/L (5.0-15.0); Bilirubin Total 0.3 mg/dL (0.2-1.0); Globulin 3.8 g/dL (2.3-3.5); Potassium 3.8 mEq/L (3.5-5.1); Protein, Total 7.4 g/dL (6.4-8.2)
--- NOTE | 2024-12-17 01:31 | RAD REPORT ---
EXAM: US Scrotum CLINICAL HISTORY: The patient is 44 years old and is Male; PAIN TECHNIQUE: Real-time ultrasound of the scrotum with color Doppler and image documentation. COMPARISON: No relevant prior studies available. FINDINGS: RIGHT TESTICLE: 3.9 x 1.8 x 2.5 cm. No mass. There is normal blood flow in the testicle, withou t evidence of testicular torsion. LEFT TESTICLE: 3.4 x 1.6 x 2.3 cm. No mass. There is normal blood flow in the testicle, without evidence of testicular torsion. EPIDIDYMIDES: Unremarkable. SCROTUM: Unremarkable. IMPRESSION: No evidence of torsion. Electronically signed by: Grisel Gaming MD 12/17/2024 01:25 AM CDT RP Due to temporary technical issues with the PACS/[employer] reporting system, reports are being sign ed by the in-house radiologist without review as a courtesy to ensure prompt reporting the interpreting rad iologist is fully responsible for the content of the report. Transcribed Date/Time: 12/17/2024 1:30 AM
--- NOTE | 2024-12-17 02:11 | RAD REPORT ---
EXAM: CT Abdomen and Pelvis Without Intravenous Contrast CLINICAL HISTORY: The patient is 44 years old and is Male; FLANK PAIN TECHNIQUE: Axial computed tomography images of the abdomen and pelvis without intravenous contrast. Sagittal and coronal reformatted images were created and reviewed. This CT exam was performed using one or more of the following dose reduction techniques: automated exposure control, adjustment of the m A and/or kV according to patient size, and/or use of iterative reconstruction technique. COMPARISON: March 31, 2024. FINDINGS: LUNG BASES: Unremarkable. No mass. No consolidation. ABDOMEN: LIVER: Homogeneous without focal mass. GALLBLADDER AND BILE DUCTS: The gallbladder is distended. No calcified gallstones or ductal dilat ation is seen. PANCREAS: Unremarkable. No ductal dilation. SPLEEN: Unremarkable. ADRENALS: Unremarkable. No mass. KIDNEYS AND URETERS: Right intrarenal calcification is present. There is no hydronephrosis or hyd roureter of either kidney. No obstructing renal or ureteral calculus is seen. There is no perinephric or periureteral stranding. STOMACH AND BOWEL: The stomach is distended with food contents. The small bowel is normal in neli lee. Stool is present throughout the colon. There is no mucosal thickening or evidence of obstruction. Scattered colonic diverticula are noted without surrounding inflammation. PELVIS: APPENDIX: No findings to suggest acute appendicitis. BLADDER: Unremarkable. No stones. REPRODUCTIVE: Unremarkable as visualized. ABDOMEN and PELVIS: INTRAPERITONEAL SPACE: Unremarkable. No free air. No significant fluid collection. BONES/JOINTS: No acute fracture. SOFT TISSUES: There are small bilateral fat containing inguinal hernias. Tiny fat-containing um bilical hernia is present. VASCULATURE: Unremarkable. No abdominal aortic aneurysm. LYMPH NODES: Unremarkable. No enlarged lymph nodes. IMPRESSION: 1. Right nephrolithiasis without obstruction. 2. Colonic diverticulosis. Electronically signed by: Grisel Gaming MD 12/17/2024 01:28 AM CDT Due to temporary technical issues with the PACS/[employer] reporting system, reports are being sandy d by the in-house radiologist without review as a courtesy to ensure prompt reporting the interpreting radiologist is fully responsible for the content of the report. Transcribed Date/Time: 12/17/2024 2:10 AM
[2024-12-17] MEDS ORDERED: KETOROLAC 30 MG/ML INJ ONE (02:26)
[2024-12-17] MEDS ORDERED: NA CHLORIDE 0.9% 100 ML ONE (02:26)
[2024-12-17] MEDS ORDERED: HYDROCODONE/APAP 7.5/325 MG TAB ONE (02:26)
[2024-12-17] MEDS ORDERED: METHOCARBAMOL 1,000 MG/10 ML VIAL ONE (02:26)
[2024-12-17 02:30] LABS: Specific Gravity < 1.005 (1.005-1.030); Sqamous Epithelial None Seen /HPF (None Seen); Urine Bacteria None Seen /HPF (<20); Urine Bilirubin NEGATIVE (Negative); Urine Blood Negative (Negative); Urine Clarity Clear (Clear); Urine Color Colorless (Yellow); Urine Culture Reflex Order NOT NEEDED; Urine Glucose NEGATIVE (Negative); Urine Ketones NEGATIVE (Negative); Urine Microscopic Reflex YN ORDER UMIC; Urine Nitrite NEGATIVE (Negative); Urine Protein NEGATIVE (Negative); Urine RBC <5 /HPF (None Seen); Urine Urobilinogen Normal (Normal); Urine WBC None Seen /HPF (<5)
--- NOTE | 2024-12-17 02:50 | ER ---
Nurse's Notes [facility] Name: Adolph Keenan Age: 44 yrs Sex: Male : 1980 Arrival Date: 12/17/2024 Time: 00:04 Bed 6 Private MD: Diagnosis: Calculus of kidney;Dorsalgia, unspecified Presentation: 12/17 00:14 Chief complaint: Patient states: low back, right flank, right lower abdomen and lg3 testicular pain X1 day. minimal urine output with small amount of blood. Coronavirus screen: Client denies travel out of the [place] in the last 14 days. At this time, the client does not indicate any symptoms associated with coronavirus-19. Ebola Screen: No symptoms or risks identified at this time. Initial Sepsis Screen: Does the patient meet any 2 criteria? No. Patient's initial sepsis screen is negative. Does the patient have a suspected source of infection? No. Patient's initial sepsis screen is negative. Risk Assessment: Do you want to hurt yourself or someone else? Patient reports no desire to harm self or others. Onset of symptoms was December 16, 2024. 00:14 Method Of Arrival: Ambulatory lg3 00:14 Acuity: JOAQUIN 3 lg3 Triage Assessment: 00:16 General: Appears in no apparent distress. uncomfortable, Behavior is calm, cooperative. lg3 Pain: Complains of pain in low back, right flank, right lower abdomen, testicles. EENT: No deficits noted. No signs and/or symptoms were reported regarding the EENT system. Neuro: No deficits noted. Alvarado Agitation-Sedation Scale (RASS): 0 - Alert and Calm Level of Consciousness is awake, alert, obeys commands, Oriented to person, place, time, situation. Cardiovascular: No deficits noted. Denies chest pain, shortness of breath, Capillary refill < 3 seconds Clubbing of nail beds is absent JVD is absent Patient's skin is warm and dry. Respiratory: No deficits noted. Airway is patent Respiratory effort is even, unlabored, Respiratory pattern is regular, symmetrical. GI: No deficits noted. Abdomen is round non-distended, Reports lower abdominal pain. : Reports burning with urination, inability to void, pain flank(s), in lower back testicle. Derm: No deficits noted. No signs and/or symptoms reported regarding the dermatologic system. Skin is intact, is healthy with good turgor, Skin is dry, Skin is normal, Skin temperature is warm. Musculoskeletal: No deficits noted. Circulation, motion, and sensation intact. Range of motion: intact in all extremities, Reports pain in low back area. Historical: - Allergies: 00:16 No Known Allergies; lg3 - Home Meds: 00:16 None [Active]; lg3 - PMHx: 00:16 Hypertension; AK (Unknown); lg3 - PSHx: 00:16 Appendectomy; right hand; lg3 - Immunization history:: Adult Immunizations up to date. - Infectious Disease History:: Denies. - Social history:: Smoking status: Patient denies any tobacco usage or history of. Patient uses alcohol, occasionally. Patient/guardian denies using street drugs. Screenin:19 [place] [facility] Fall Risk Assessment (Adult) History of falling in the last 3 months, lg3 including since admission No falls in past 3 months (0 pts) Confusion or Disorientation No (0 pts) Intoxicated or Sedated No (0 pts) Impaired Gait No (0 pts) Mobility Assist Device Used No (0 pt) Altered Elimination No (0 pt) Score/Fall Risk Level 0 - 2 = Low Risk Oriented to surroundings, Maintained a safe environment, Educated pt \T\ family on fall prevention, incl call for assistance when getting out of bed, Assessed \T\ reinforced patient's understanding of fall precautions. Abuse screen: Denies threats or abuse. Denies injuries from another. Nutritional screening: No deficits noted. Tuberculosis screening: No symptoms or risk factors identified. Assessment: 00:21 General: Appears in no apparent distress. uncomfortable, Behavior is calm, cooperative, dd2 appropriate for age. Pain: Complains of pain in low back area, rt testicle Pain does not radiate. Neuro: No deficits noted. Alvarado Agitation-Sedation Scale (RASS): 0 - Alert and Calm Level of Consciousness is awake, alert, obeys commands, Oriented to person, place, time, situation, Appropriate for age. Cardiovascular: No deficits noted. Patient's skin is warm and dry. Respiratory: No deficits noted. Airway is patent Respiratory effort is even, unlabored, Respiratory pattern is regular, symmetrical. GI: No deficits noted. No signs and/or symptoms were reported involving the gastrointestinal system. Abdomen is non-distended, Abd is soft and non tender X 4 quads. : CVA tenderness noted bilaterally Reports burning with urination, inability to void, pain in right in lower back testicle. EENT: No deficits noted. No signs and/or symptoms were reported regarding the EENT system. Derm: No deficits noted. No signs and/or symptoms reported regarding the dermatologic system. Skin is healthy with good turgor, Skin is dry, Skin is normal, Skin temperature is warm. Musculoskeletal: No deficits noted. No signs and/or symptoms reported regarding the musculoskeletal system. Circulation, motion, and sensation intact. Range of motion: intact in all extremities. 02:53 General: Pt awaiting medication administration to be complete for D/C . kd3 Vital Signs: 00:14 BP 131 / 86; Pulse 92; Resp 16 S; Temp 98.6(O); Pulse Ox 97% on R/A; Weight 72.12 kg lg3 (R); Height 5 ft. 9 in. (R); 02:45 BP 124 / 79; Pulse 63; Resp 16; Pulse Ox 98% on R/A; kd3 00:14 Body Mass Index 23.48 (72.12 kg, 175.26 cm) lg3 [place] Coma Score: 00:21 Eye Response: spontaneous(4). Motor Response: obeys commands(6). Verbal Response: dd2 oriented(5). Total: 15. ED Course: 00:07 Patient arrived in ED. gm2 00:07 Hermelindo Garcia PA is PHCP. cp 00:07 Pedro Chase MD is Attending Physician. cp 00:09 Pati Colon RN is Primary Nurse. kd3 00:16 Triage completed. lg3 00:16 Arm band placed on right wrist. lg3 00:17 No provider procedures requiring assistance completed. Initial lab(s) drawn, by , red sent to lab. Inserted saline lock: 20 gauge in left antecubital area, using aseptic technique. Blood collected. Flushed with 10 mL NS. Patient maintains SpO2 saturation greater than 95% on room air. 00:19 Patient has correct armband on for positive identification. Placed in gown. Bed in low lg3 position. Call light in reach. Side rails up X 1. Client placed on continuous cardiac and pulse oximetry monitoring. NIBP monitoring applied. Door closed. Noise minimized. Warm blanket given. Pillow given. 00:21 Provided Education on: labs, radiology and medication education . dd2 00:48 US Scrotum Testicles In Process Unspecified. EDMS 00:49 CT Stone Protocol In Process Unspecified. EDMS 02:48 Terry Rojas MD is Referral Physician. cp 02:58 IV discontinued, intact, bleeding controlled, No redness/swelling at site. Pressure kd3 dressing applied. Administered Medications: 00:18 Drug: Ondansetron IVP 4 mg IVP once; over 2 minutes Route: IVP; Site: left antecubital; dd2 02:59 Follow up: Response: No adverse reaction kd3 00:18 Drug: morphine IVP or IV 4 mg IVP once over 4 mins Route: IVP; Infused Over: 4 mins; dd2 Site: left antecubital; 02:59 Follow up: Response: No adverse reaction; Pain is decreased kd3 00:18 Drug: NS 0.9% IV 1000 ml IV at 1 bolus Per protocol; to be given as a bolus over 60 dd2 minutes Route: IV; Rate: 1 bolus; Site: left antecubital; 02:59 Follow up: IV Status: Completed infusion kd3 02:34 Drug: Ketorolac IVP 30 mg IVP once Route: IVP; Site: left antecubital; kd3 02:59 Follow up: Response: No adverse reaction kd3 02:34 Drug: Methocarbamol IVPB 1 grams IVPB once over 1 hrs; (mix in NS 100 mL) Route: IVPB; kd3 Infused Over: 1 hrs; Site: left antecubital; 02:59 Follow up: IV Status: Completed infusion kd3 02:34 Drug: Hydrocodone-Acetaminophen PO (7.5 mg-325 mg) 1 tabs PO once; RASS on ADMIN: kd3 Combtv4, Very Agttd3, Agttd2, Rstlss1, AlertClm0, Drwsy-1, Lt Sdtn-2, Mod Sdtn-3, Dp Sdtn-4, UnArsble-5 Route: PO; 02:59 Follow up: Response: No adverse reaction; Pain is decreased kd3 Medication: 00:21 VIS not applicable for this client. dd2 Outcome: 02:49 Discharge ordered by . cp 02:58 Discharged to home ambulatory, with family, kd3 02:58 Condition: stable 02:58 Discharge instructions given to patient, family, Instructed on discharge instructions, follow up and referral plans. medication usage, Demonstrated understanding of instructions, follow-up care, medications, Prescriptions given X 2, 03:00 Patient left the ED. kd3 Signatures: Dispatcher [employer] EDMS Hermelindo Garcia PA PA cp Able, Lacie RN RN lg3 Pati Colon RN RN micha3 Marysol Bennett 2 CHER LARSON RN RN dd2
--- NOTE | 2024-12-17 02:50 | EDPHYS ---
Physician Documentation [facility] Name: Adolph Keenan Age: 44 yrs Sex: Male : 1980 Arrival Date: 12/17/2024 Time: 00:04 Bed 6 Private MD: ED Physician Pedro Chase HPI: 12/17 00:20 This 44 yrs old Male presents to ER via Ambulatory with complaints of cp Testicular Pain, Low Back Pain. 00:20 The patient presents with scrotal pain, of the right side, urinary symptoms, burning cp and difficulty urinating. 00:20 Onset: The symptoms/episode began/occurred 1 day(s) ago. cp 00:20 Associated signs and symptoms: Pertinent positives: hematuria, nausea, Pertinent cp negatives: constipation, diarrhea. Severity of symptoms: in the emergency department the symptoms are unchanged, despite home interventions. Historical: - Allergies: 00:16 No Known Allergies; lg3 - Home Meds: 00:16 None [Active]; lg3 - PMHx: 00:16 Hypertension; [place] (Unknown); lg3 - PSHx: 00:16 Appendectomy; right hand; lg3 - Immunization history:: Adult Immunizations up to date. - Infectious Disease History:: Denies. - Social history:: Smoking status: Patient denies any tobacco usage or history of. Patient uses alcohol, occasionally. Patient/guardian denies using street drugs. ROS: 00:25 Constitutional: Negative for body aches, chills, fever, poor PO intake, cp 00:25 Eyes: Negative for injury, pain, redness, and discharge, cp 00:25 ENT: Negative for drainage from ear(s), ear pain, sore throat, difficulty swallowing, difficulty handling secretions, 00:25 Cardiovascular: Negative for chest pain, palpitations, 00:25 Respiratory: Negative for cough, shortness of breath, wheezing, 00:25 Abdomen/GI: Negative for vomiting, diarrhea, constipation, 00:25 Back: Positive for flank pain, bilaterally, Negative for injury or acute deformity, decreased range of motion, 00:25 : Positive for hematuria, testicular pain 00:25 All other systems are negative, Exam: 00:30 Constitutional: The patient appears in no acute distress, alert, awake, non-toxic, well cp developed, well nourished, uncomfortable, 00:30 Head/Face: Normocephalic, atraumatic. cp 00:30 Eyes: Periorbital structures: appear normal, Conjunctiva: normal, no exudate, no injection, Sclera: no appreciated abnormality, Lids and lashes: appear normal, bilaterally, 00:30 ENT: External ear(s): are unremarkable, Nose: is normal, Mouth: Lips: moist, Oral mucosa: moist, Posterior pharynx: Airway: no evidence of obstruction, patent, 00:30 Neck: ROM/movement: is normal, is supple, without pain, no range of motions limitations, 00:30 Cardiovascular: Rate: normal, Rhythm: regular, Edema: is not appreciated, JVD: is not appreciated, 00:30 Respiratory: the patient does not display signs of respiratory distress, Respirations: normal, no use of accessory muscles, no retractions, labored breathing, is not present, Breath sounds: are clear throughout, no decreased breath sounds, no stridor, no wheezing, 00:30 Abdomen/GI: Inspection: abdomen appears normal, Bowel sounds: active, all quadrants, Palpation: soft, in all quadrants, moderate abdominal tenderness, in the anterior aspect of left lateral abdomen, posterior aspect of left lateral abdomen, anterior aspect of right lateral abdomen, posterior aspect of right lateral abdomen and right lower quadrant, rebound tenderness, is not appreciated, involuntary guarding, is not appreciated, 00:30 Back: pain, that is moderate, of the low back area and mid back area, ROM is painful, with all movement, Vital Signs: 00:14 BP 131 / 86; Pulse 92; Resp 16 S; Temp 98.6(O); Pulse Ox 97% on R/A; Weight 72.12 kg lg3 (R); Height 5 ft. 9 in. (R); 02:45 BP 124 / 79; Pulse 63; Resp 16; Pulse Ox 98% on R/A; kd3 00:14 Body Mass Index 23.48 (72.12 kg, 175.26 cm) lg3 [place]ryan Coma Score: 00:21 Eye Response: spontaneous(4). Motor Response: obeys commands(6). Verbal Response: dd2 oriented(5). Total: 15. MDM: 01:00 Differential diagnosis: nonspecific abdominal pain, appendicitis, UTI, urinary cp retention, prostatitis, urethritis. 02:49 Medical Screening Exam initiated :49 Data reviewed: vital signs, nurses notes, lab test result(s), radiologic studies, CT cp scan, and as a result, I will discharge patient. :49 I considered the following discharge prescriptions or medication management in the emergency department Medications were administered in the Emergency Department. See MAR. :49 Counseling: I had a detailed discussion with the patient and/or guardian regarding the historical points, exam findings, and any diagnostic results supporting the discharge/admit diagnosis, lab results, radiology results, the need for outpatient follow up, a urologist, to return to the emergency department if symptoms worsen or persist or if there are any questions or concerns that arise at home. Response to treatment: the patient's symptoms have markedly improved after treatment, and as a result, I will discharge patient. 12/17 00:13 Order name: CBC with Diff; Complete Time: 01:09 12/17 01:09 Interpretation: Reviewed. 12/17 00:13 Order name: CMP; Complete Time: 01:09 12/17 01:09 Interpretation: Normal except: NA 135; GLUC 126; GFR 77; AST 12; GLOB 3.8; A/G 0.9. 12/17 00:13 Order name: Lipase; Complete Time: 01:09 12/17 00:13 Order name: Urinalysis w/ reflexes; Complete Time: 02:47 12/17 00:13 Order name: US Scrotum Testicles 12/17 00:13 Order name: CT Stone Protocol 12/17 00:13 Order name: IV Saline Lock; Complete Time: 00:18 12/17 00:13 Order name: Labs collected and sent; Complete Time: 00:18 Administered Medications: 00:18 Drug: Ondansetron IVP 4 mg IVP once; over 2 minutes Route: IVP; Site: left antecubital; dd2 02:59 Follow up: Response: No adverse reaction kd3 00:18 Drug: morphine IVP or IV 4 mg IVP once over 4 mins Route: IVP; Infused Over: 4 mins; dd2 Site: left antecubital; 02:59 Follow up: Response: No adverse reaction; Pain is decreased kd3 00:18 Drug: NS 0.9% IV 1000 ml IV at 1 bolus Per protocol; to be given as a bolus over 60 dd2 minutes Route: IV; Rate: 1 bolus; Site: left antecubital; 02:59 Follow up: IV Status: Completed infusion kd3 02:34 Drug: Ketorolac IVP 30 mg IVP once Route: IVP; Site: left antecubital; kd3 02:59 Follow up: Response: No adverse reaction kd3 02:34 Drug: Methocarbamol IVPB 1 grams IVPB once over 1 hrs; (mix in NS 100 mL) Route: IVPB; kd3 Infused Over: 1 hrs; Site: left antecubital; 02:59 Follow up: IV Status: Completed infusion kd3 02:34 Drug: Hydrocodone-Acetaminophen PO (7.5 mg-325 mg) 1 tabs PO once; RASS on ADMIN: kd3 Combtv4, Very Agttd3, Agttd2, Rstlss1, AlertClm0, Drwsy-1, Lt Sdtn-2, Mod Sdtn-3, Dp Sdtn-4, UnArsble-5 Route: PO; 02:59 Follow up: Response: No adverse reaction; Pain is decreased kd3 Disposition: 04:14 Co-signature as Attending Physician, Pedro Chase MD I agree with the assessment sp4 and plan of care. I reviewed the patient's care provided by the Advanced Practice Provider and agree with the diagnosis and treatment plan. Disposition Summary: 12/17/24 02:49 Discharge Ordered Notes: Location: Home cp Problem: new cp Symptoms: have improved cp Condition: Stable cp Diagnosis - Calculus of kidney cp - Dorsalgia, unspecified cp Followup: cp - With: Terry Rojas MD - When: 5 - 6 days - Reason: Recheck today's complaints Discharge Instructions: - Discharge Summary Sheet cp - Acute Back Pain, Adult cp - Kidney Stones cp - Musculoskeletal Pain cp Forms: - Medication Reconciliation Form cp - Antibiotic Education cp - Prescription Opioid Use cp - Patient Portal Instructions cp - Leadership Thank You Letter cp Prescriptions: - Diclofenac Sodium 75 mg Oral Tablet Sustained Release - take 1 tablet ORAL route 2 times per day; 30 tablet; Refills: 0, Product cp Selection Permitted - methocarbamol 750 mg Oral tablet - take 1 tablet ORAL route 3 times per day; 30 tablet; Refills: 0, Product cp Selection Permitted Signatures: Dispatcher [employer] EDMS Hermelindo Garcia PA PA cp Able, Lacie, RN RN lg3 Pati Colon RN RN kd3 Pedro Chase MD MD sp4 CHER LARSON RN RN dd2 Corrections: (The following items were deleted from the chart) 00:13 00:13 Scrotum Testicles+US.RAD.BRZ ordered. EDMS EDMS 00:14 00:14 Stone Protocol+CT.RAD.BRZ ordered. EDMS EDMS 00:14 00:14 CBC+H.LAB.BRZ ordered. EDMS EDMS 00:14 00:14 COMPREHENSIVE METABOLIC PANEL+C.LAB.BRZ ordered. EDMS EDMS 00:14 00:14 LIPASE+C.LAB.BRZ ordered. EDMS EDMS 00:14 00:14 Urinalysis+U.LAB.BRZ ordered. EDMS EDMS 01:09 01:09 Reviewed, Reviewed, Reviewed. cp cp 23:54 00:20 The patient presents with urinary symptoms, burning and difficulty urinating, cp cp
[2024-12-17 03:04] VITALS: TEMP 98.6
[2024-12-17 03:06] VITALS: BP 124/79; O2SAT 98
== END 2024-12-17 03:00 | disposition home or self-care (01) ==
LOC: ER 00:04
DX: N20.0 Calculus of kidney (principal)
CPT/HCPCS: 36415; 74176; 76377; 76870; 80053; 81001; 83690; 85025; 96361; 96365; 96375; 99284; J2405; J2800; J7030

== ENCOUNTER 2024-12-30 22:29 | Emergency (ER) | payer OTHER ==
[2024-12-31] MEDS ORDERED: DIPHENHYDRAMINE 50 MG/ML VIAL ONE (00:44)
[2024-12-31] MEDS ORDERED: METOCLOPRAMIDE 10 MG/2mL INJ ONE (00:45)
[2024-12-31] MEDS ORDERED: NA CHLORIDE 0.9% 1,000 ML ONE (00:45)
[2024-12-31] MEDS ORDERED: PANTOPRAZOLE 40 MG INJ ONE (00:47)
[2024-12-31 01:28] LABS: PT Prothrombin Time 10.7 SECONDS (10-13.0); PTT, Activated Partial Thromb 31.5 SECONDS (27.2-37.4); Protime INR 0.94
[2024-12-31 01:33] LABS: ALT/SGPT 24 U/L (16-61); Albumin 3.6 g/dL (3.4-5.0); Albumin/Globulin Ratio 0.9 (1.1-1.8); Alkaline Phosphatase 97 U/L (45-117); Anion Gap 8.8 mEq/L (5.0-15.0); BUN Blood Urea Nitrogen 13 mg/dL (7-18); Bicarbonate 27 mEq/L (21-32); Bilirubin Total 0.3 mg/dL (0.2-1.0); Globulin 3.8 g/dL (2.3-3.5); Glomerular Filtration Rate 79 ml/min (=/>90); Glucose Level 94 mg/dL (74-106); Lipase 58 U/L (13-75); Potassium 3.8 mEq/L (3.5-5.1); Protein, Total 7.4 g/dL (6.4-8.2); Sodium Level 135 mEq/L (136-145)
[2024-12-31 01:40] LABS: AST/SGOT < 10 U/L (15-37)
[2024-12-31 01:44] LABS: Absolute Eosinophils 0.3 K/uL (0-0.5); Absolute Lymphocytes (CBC) 2.6 K/uL (0.7-4.9); Absolute Monocytes 0.6 K/uL (0.1-1.3); Absolute Neutrophil 5.3 K/uL (1.8-8.0); Basophils % 0.4 % (0-1.3); Eosinophils % 3.6 % (0-4.4); Hemoglobin 15.2 g/dL (13.6-17.9); Lymphocytes % 29.9 % (15.3-44.8); MCH 29.7 pg (27.0-35.0); MCHC 34.6 g/dL (32.0-36.0); MCV 85.8 fL (80-100); MPV 8.2 fL (7.6-11.3); Monocytes % 6.7 % (3.3-12.3); Neutrophils % 59.4 % (41.7-73.7); Nucleated Red Blood Cells % 0.1 % (0-0); Platelets 270 thou/uL (152-406); RBC Red Blood Cell Count 5.13 M/uL (4.33-5.43); Red Cell Distribution Width 13.2 % (12.1-15.2)
--- NOTE | 2024-12-31 04:18 | RAD REPORT ---
CT ABDOMEN WITH IV CONTRAST, CT PELVIS ANGIOGRAPHY WITH IV CONTRAST CLINICAL INDICATION: Abdominal pain. COMPARISON: CT abdomen and pelvis 03/31/2024 TECHNIQUE: CT images of the abdomen and pelvis obtained during arterial phase following administratio n of intravenous contrast. Multiplanar MPR and MIP reformats were provided. Dose-optimization techniques such as automated exposure control, iterative reconstruction, and mA and/or kV adjustment for patient size was utilized for this examination. FINDINGS: LOWER CHEST: Unremarkable. LIVER: Unremarkable. BILIARY: Unremarkable. PANCREAS: Unremarkable. SPLEEN: Unremarkable. ADRENALS: Unremarkable. KIDNEYS/URETERS: No nephrolithiasis or hydronephrosis. No suspicious lesion. STOMACH: Unremarkable. BOWEL: Colonic diverticulosis without acute diverticulitis. APPENDIX: Appendix is not definitively visualized. No focal inflammation in right lower quadrant to s uggest acute appendicitis. MESENTERY/PERITONEUM: Unremarkable. RETROPERITONEUM: No adenopathy. URINARY BLADDER: Unremarkable. REPRODUCTIVE: Unremarkable. VASCULAR: No aneurysm or dissection. ABDOMINAL/PELVIC WALL: Unremarkable. BONES: Mild multilevel disc bulge of lumbar spine, worse at L4-5 level with mild central canal stenos is. No compression deformity, nor osteolytic or sclerotic lesion. IMPRESSION: No acute inflammatory process in the abdomen and pelvis. Electronically signed by: Nu Sarmiento MD 12/31/2024 04:04 AM CDT RP Due to temporary technical issues with the PACS/i[employer] reporting system, reports are being sandy d by the in-house radiologist without review as a courtesy to ensure prompt reporting the interpreting radiologist is fully responsible for the content of the report. Transcribed Date/Time: 12/31/2024 4:17 AM
--- NOTE | 2024-12-31 04:18 | RAD REPORT ---
CT ABDOMEN WITH IV CONTRAST, CT PELVIS ANGIOGRAPHY WITH IV CONTRAST CLINICAL INDICATION: Abdominal pain. COMPARISON: CT abdomen and pelvis 03/31/2024 TECHNIQUE: CT images of the abdomen and pelvis obtained during arterial phase following administratio n of intravenous contrast. Multiplanar MPR and MIP reformats were provided. Dose-optimization techniques such as automated exposure control, iterative reconstruction, and mA and/or kV adjustment for patient size was utilized for this examination. FINDINGS: LOWER CHEST: Unremarkable. LIVER: Unremarkable. BILIARY: Unremarkable. PANCREAS: Unremarkable. SPLEEN: Unremarkable. ADRENALS: Unremarkable. KIDNEYS/URETERS: No nephrolithiasis or hydronephrosis. No suspicious lesion. STOMACH: Unremarkable. BOWEL: Colonic diverticulosis without acute diverticulitis. APPENDIX: Appendix is not definitively visualized. No focal inflammation in right lower quadrant to s uggest acute appendicitis. MESENTERY/PERITONEUM: Unremarkable. RETROPERITONEUM: No adenopathy. URINARY BLADDER: Unremarkable. REPRODUCTIVE: Unremarkable. VASCULAR: No aneurysm or dissection. ABDOMINAL/PELVIC WALL: Unremarkable. BONES: Mild multilevel disc bulge of lumbar spine, worse at L4-5 level with mild central canal stenos is. No compression deformity, nor osteolytic or sclerotic lesion. IMPRESSION: No acute inflammatory process in the abdomen and pelvis. Electronically signed by: Nu Sarmiento MD 12/31/2024 04:04 AM CDT RP Due to temporary technical issues with the PACS/[employer] reporting system, reports are being sandy d by the in-house radiologist without review as a courtesy to ensure prompt reporting the interpreting radiologist is fully responsible for the content of the report. Transcribed Date/Time: 12/31/2024 4:18 AM
--- NOTE | 2024-12-31 05:07 | ER ---
Nurse's Notes [facility] Name: Adolph Keenan Age: 44 yrs Sex: Male : 1980 Arrival Date: 12/30/2024 Time: 22:29 Bed 7 Private MD: Diagnosis: Abdominal pain, Generalized Presentation: 12/30 22:51 Chief complaint: Patient states: AB PAIN NAUSEA/VOMITING/DIARRHEA/FEVER (100.3) STARTED lg3 THIS MORNING. Coronavirus screen: Client denies travel out of the [place] in the last 14 days. Ebola Screen: Patient denies exposure to infectious person. Initial Sepsis Screen: Does the patient meet any 2 criteria? No. Patient's initial sepsis screen is negative. Does the patient have a suspected source of infection? No. Patient's initial sepsis screen is negative. Risk Assessment: Do you want to hurt yourself or someone else? Patient reports no desire to harm self or others. Onset of symptoms was December 30, 2024 at 10:00. 22:51 Method Of Arrival: Ambulatory lg3 22:51 Acuity: JOAQUIN 3 lg3 Triage Assessment: 22:54 General: Appears in no apparent distress. comfortable, Behavior is calm, cooperative. lg3 Pain: Complains of pain in abdomen Pain radiates to abdomen Pain currently is 10 out of 10 on a pain scale. GI: No signs and/or symptoms were reported involving the gastrointestinal system. Reports lower abdominal pain, upper abdominal pain, bloating, diarrhea, nausea, vomiting. Historical: - Allergies: 22:54 No Known Allergies; lg3 - PMHx: 12/31 01:26 [place] (Unknown); COLON CANCER (2024); ha1 - PSHx: 01:26 Appendectomy; right hand; ha1 - Immunization history:: Adult Immunizations up to date. - Infectious Disease History:: Denies. - Social history:: Smoking status: Patient denies any tobacco usage or history of. Patient uses alcohol, but reports only rare drinking. Patient/guardian denies using street drugs. Screenin:28 [facility] ED Fall Risk Assessment (Adult) History of falling in the last 3 months, ha1 including since admission No falls in past 3 months (0 pts) Confusion or Disorientation No (0 pts) Intoxicated or Sedated No (0 pts) Impaired Gait No (0 pts) Mobility Assist Device Used No (0 pt) Altered Elimination No (0 pt) Score/Fall Risk Level 0 - 2 = Low Risk Oriented to surroundings, Maintained a safe environment, Educated pt \T\ family on fall prevention, incl call for assistance when getting out of bed, Hourly rounding (assess needs \T\ fall precautionary measures) done. Abuse screen: Denies threats or abuse. Denies injuries from another. Nutritional screening: No deficits noted. Tuberculosis screening: No symptoms or risk factors identified. Assessment: 00:30 General: Appears uncomfortable, Behavior is calm, cooperative. Pain: Complains of pain ha1 in abdomen Pain does not radiate. Pain at worst was 9 out of 10 on a pain scale. Quality of pain is described as pressure. Neuro: Level of Consciousness is awake, alert, obeys commands, Oriented to person, place, time, situation. Cardiovascular: Capillary refill < 3 seconds Patient's skin is warm and dry. Respiratory: Airway is patent Respiratory effort is even, unlabored, Respiratory pattern is regular, symmetrical. GI: Abdomen is round non-distended, Bowel sounds present X 4 quads. Reports lower abdominal pain, upper abdominal pain, diarrhea, bloody stool, nausea, vomiting, VOMITING BLOOD AFTER ENDOSCOPY. Derm: Skin is pink, warm \T\ dry. 01:30 Reassessment: Patient and/or family updated on plan of care and expected duration. Pain ha1 level reassessed. Patient is alert, oriented x 3, equal unlabored respirations, skin warm/dry/pink. 02:30 Reassessment: Patient and/or family updated on plan of care and expected duration. Pain ha1 level reassessed. Patient is alert, oriented x 3, equal unlabored respirations, skin warm/dry/pink. 03:15 Reassessment: Patient and/or family updated on plan of care and expected duration. Pain ha1 level reassessed. Patient is alert, oriented x 3, equal unlabored respirations, skin warm/dry/pink. Vital Signs: 12/30 22:51 BP 126 / 85; Pulse 63; Resp 18; Temp 97.2(TE); Pulse Ox 100% ; Weight 74.84 kg; Height lg3 5 ft. 11 in. ; Pain 10/10; 12/31 01:00 BP 120 / 81; Pulse 54; Resp 17 S; Pulse Ox 100% on R/A; ha1 02:00 BP 118 / 101; Pulse 54; Resp 17 S; Pulse Ox 100% on R/A; ha1 02:39 BP 141 / 93; Pulse 49; Resp 18; Pulse Ox 99% ; cp4 03:47 BP 129 / 87; Pulse 51; Resp 18; Pulse Ox 99% ; cp4 05:16 BP 115 / 76; Pulse 49; Resp 18; Pulse Ox 99% ; cp4 12/30 22:51 Body Mass Index 23.01 (74.84 kg, 180.34 cm) lg3 12/30 22:51 Pain Scale: Adult 3 ED Course: 12/30 22:33 Patient arrived in ED. [id number] 22:39 Hermelindo Garcia PA is PHCP. cp 22:39 Celia Fournier MD is Attending Physician. cp 22:54 Triage completed. lg3 22:54 Arm band placed on. 3 12/31 00:41 Tanesha Lovell, RUTH is Primary Nurse. ha1 00:50 Inserted saline lock: 20 gauge in right antecubital area, using aseptic technique. ha1 Blood collected. Flushed with 10 mL NS. 01:03 Magnesium Sent. ha1 01:03 Type And Screen Sent. ha1 01:03 Ptt, Activated Sent. ha1 01:03 PT-INR Sent. ha1 01:04 CBC with Diff Sent. ha1 01:04 CMP Sent. ha1 01:04 Lipase Sent. ha1 02:08 CT Abdomen - Angio In Process Unspecified. EDMS 02:08 CT Pelvis Angio In Process Unspecified. EDMS 05:17 Placed in gown. Bed in low position. Call light in reach. Side rails up X 1. Provided cp4 Education on: abdominal pain. 05:17 No provider procedures requiring assistance completed. intact, bleeding controlled, No cp4 redness/swelling at site. Pressure dressing applied. Administered Medications: 00:48 CANCELLED (Physician Discretion): [id number] mg IVP once cp 01:00 Drug: NS 0.9% IV 1000 ml IV at 1000 ml once; to be given as a bolus over 60 minutes ha1 Route: IV; Rate: 1000 ml; Site: right antecubital; 05:17 Follow up: IV Status: Completed infusion cp4 01:00 Drug: metoCLOPramide IVP 10 mg IVP once; over 1 to 2 minutes Route: IVP; Site: right ha1 antecubital; 05:17 Follow up: Response: No adverse reaction cp4 01:00 Drug: diphenhydrAMINE IVP 25 mg IVP once Route: IVP; Site: right antecubital; ha1 05:16 Follow up: Response: No adverse reaction cp4 01:03 Drug: Pantoprazole IVP 40 mg IVP once Route: IVP; Site: right antecubital; ha1 05:17 Follow up: Response: No adverse reaction cp4 Medication: 05:17 VIS not applicable for this client. cp4 Outcome: 05:06 Discharge ordered by . sp3 05:17 Discharged to home ambulatory, cp4 05:17 Condition: stable 05:17 Discharge instructions given to patient, family, Instructed on discharge instructions, follow up and referral plans. Demonstrated understanding of instructions, follow-up care, 05:18 Patient left the ED. cp4 Signatures: Dispatcher [employer] EDMS Hermelnido Garcia PA PA cp Able, Lacie RN RN lg3 Celia Fournier MD MD sp3 Ayleen Chowdhury [email or web address] Tanesha Lovell RN RN ha1 Kim Spangler cp4 Corrections: (The following items were deleted from the chart) 12/30 22:55 22:54 PMHx: Hypertension; lg3 lg3
--- NOTE | 2024-12-31 05:07 | EDPHYS ---
Physician Documentation [facility] Name: Adolph Keenan Age: 44 yrs Sex: Male : 1980 Arrival Date: 12/30/2024 Time: 22:29 Bed 7 Private MD: ED Physician Celia Fournier HPI: 12/30 23:45 This 44 yrs old Male presents to ER via Ambulatory with complaints of cp Abdominal Pain, Nausea/Vomiting. 23:45 The patient presents with abdominal pain that is diffuse. Onset: The symptoms/episode cp began/occurred today. Associated signs and symptoms: Pertinent positives: nausea and vomiting, blood in stools, diarrhea, vomiting blood. Severity of pain: in the emergency department the pain is unchanged despite home interventions. Patient reports hx colon cancer and having endoscopy today by DR Fournier in [place]. Historical: - Allergies: 22:54 No Known Allergies; lg3 - PMHx: 12/31 01:26 MT (Unknown); COLON CANCER (2024); ha1 - PSHx: 01:26 Appendectomy; right hand; ha1 - Immunization history:: Adult Immunizations up to date. - Infectious Disease History:: Denies. - Social history:: Smoking status: Patient denies any tobacco usage or history of. Patient uses alcohol, but reports only rare drinking. Patient/guardian denies using street drugs. ROS: 12/30 23:50 Constitutional: Negative for body aches, chills, fever, cp 23:50 Eyes: Negative for injury, pain, redness, and discharge, cp 23:50 ENT: Negative for drainage from ear(s), ear pain, 23:50 Cardiovascular: Negative for chest pain, edema, palpitations, 23:50 Respiratory: Negative for cough, shortness of breath, wheezing, 23:50 Abdomen/GI: Positive for abdominal pain, hematemesis, blood in stools, Negative for constipation, 23:50 Neuro: Negative for altered mental status, dizziness, headache, weakness, 23:50 All other systems are negative, Exam: 23:53 Constitutional: The patient appears in no acute distress, alert, awake, cp non-diaphoretic, non-toxic, well developed, well nourished, 23:53 Head/Face: Normocephalic, atraumatic. cp 23:53 Eyes: Periorbital structures: appear normal, Conjunctiva: normal, no exudate, no injection, Sclera: no appreciated abnormality, Lids and lashes: appear normal, bilaterally, 23:53 ENT: External ear(s): are unremarkable, Nose: is normal, Mouth: Lips: moist, Oral mucosa: moist, Posterior pharynx: Airway: no evidence of obstruction, patent, 23:53 Chest/axilla: Inspection: normal, Palpation: is normal, no crepitus, no tenderness, 23:53 Cardiovascular: Rate: normal, Rhythm: regular, Edema: is not appreciated, 23:53 Respiratory: the patient does not display signs of respiratory distress, Respirations: normal, no use of accessory muscles, no retractions, labored breathing, is not present, 23:53 Abdomen/GI: Inspection: abdomen appears normal, Bowel sounds: active, all quadrants, Palpation: soft, in all quadrants, moderate abdominal tenderness, in all quadrants, rebound tenderness, is not appreciated, 23:53 Back: pain, is absent, ROM is normal, 23:53 Neuro: Orientation: to person, place \T\ time. Mentation: is normal, Motor: moves all fours, strength is normal, Gait: is steady, at a normal pace, without difficulty, 12/31 01:13 ECG was reviewed by the Attending Physician. Vital Signs: 12/30 22:51 BP 126 / 85; Pulse 63; Resp 18; Temp 97.2(TE); Pulse Ox 100% ; Weight 74.84 kg; Height lg3 5 ft. 11 in. ; Pain 10/10; 12/31 01:00 BP 120 / 81; Pulse 54; Resp 17 S; Pulse Ox 100% on R/A; ha1 02:00 BP 118 / 101; Pulse 54; Resp 17 S; Pulse Ox 100% on R/A; ha1 02:39 BP 141 / 93; Pulse 49; Resp 18; Pulse Ox 99% ; cp4 03:47 BP 129 / 87; Pulse 51; Resp 18; Pulse Ox 99% ; cp4 05:16 BP 115 / 76; Pulse 49; Resp 18; Pulse Ox 99% ; cp4 12/30 22:51 Body Mass Index 23.01 (74.84 kg, 180.34 cm) lg3 12/30 22:51 Pain Scale: Adult 3 MDM: 12/30 23:44 Medical Screening Exam initiated cp 12/30 23:44 Order name: CBC with Diff; Complete Time: 02:07 cp 12/31 02:07 Interpretation: Reviewed. cp 12/30 23:44 Order name: CMP; Complete Time: 02:07 cp 12/31 02:07 Interpretation: Normal except: NA 135; GFR 79; AST < 10; GLOB 3.8; A/G 0.9. cp 12/30 23:44 Order name: Lipase; Complete Time: 02:07 cp 12/31 00:48 Order name: PT-INR; Complete Time: 01:32 ha1 12/31 00:48 Order name: PT-INR cp 12/31 00:48 Order name: Ptt, Activated; Complete Time: 01:32 cp 12/31 00:48 Order name: Type And Screen; Complete Time: 05:05 cp 12/31 00:48 Order name: Magnesium; Complete Time: 02:07 cp 12/31 01:39 Order name: CT Abdomen - Angio cp 12/31 01:39 Order name: CT Pelvis Angio cp 12/31 00:48 Order name: EKG; Complete Time: 00:49 cp 12/30 23:44 Order name: IV Saline Lock; Complete Time: 00:42 cp 12/30 23:44 Order name: Labs collected and sent; Complete Time: 00:42 cp 12/31 00:48 Order name: EKG - Nurse/Tech; Complete Time: 01:12 cp EC 01:13 Rate is 71 beats/min. Rhythm is regular. CT interval is normal. QRS interval is normal. cp QT interval is normal. T waves are Inverted in lead aVR. Interpreted by me. Reviewed by me. Administered Medications: 00:48 CANCELLED (Physician Discretion): [id number] mg IVP once cp 01:00 Drug: NS 0.9% IV 1000 ml IV at 1000 ml once; to be given as a bolus over 60 minutes ha1 Route: IV; Rate: 1000 ml; Site: right antecubital; 05:17 Follow up: IV Status: Completed infusion cp4 01:00 Drug: metoCLOPramide IVP 10 mg IVP once; over 1 to 2 minutes Route: IVP; Site: right ha1 antecubital; 05:17 Follow up: Response: No adverse reaction cp4 01:00 Drug: diphenhydrAMINE IVP 25 mg IVP once Route: IVP; Site: right antecubital; ha1 05:16 Follow up: Response: No adverse reaction cp4 01:03 Drug: Pantoprazole IVP 40 mg IVP once Route: IVP; Site: right antecubital; ha1 05:17 Follow up: Response: No adverse reaction cp4 Disposition: 05:06 Co-signature as Attending Physician, Celia Fournier MD I agree with the assessment and sp3 plan of care. Disposition Summary: 12/31/24 05:06 Discharge Ordered Notes: Location: Home sp3 Condition: Stable sp3 Diagnosis - Abdominal pain, Generalized sp3 Followup: sp3 - With: Private Physician - When: Upon discharge from the Emergency Department - Reason: Discharge Instructions: - Discharge Summary Sheet sp3 - Abdominal Pain, Adult sp3 Forms: - Medication Reconciliation Form sp3 - Antibiotic Education sp3 - Prescription Opioid Use sp3 - Patient Portal Instructions sp3 - Leadership Thank You Letter sp3 Signatures: Dispatcher [employer] EDMS Hermelindo Garcia PA PA Cristal Hoffman RN RN lg3 Celia Fournier MD MD sp3 Tanesha Lovell RN RN ha1 Kim Spangler cp4 Corrections: (The following items were deleted from the chart) 12/30 22:55 22:54 PMHx: Hypertension; lg3 lg3 23:45 23:45 CBC+H.LAB.BRZ ordered. EDMS EDMS 23:45 23:45 COMPREHENSIVE METABOLIC PANEL+C.LAB.BRZ ordered. EDMS EDMS 23:45 23:45 LIPASE+C.LAB.BRZ ordered. EDMS EDMS 12/31 00:48 00:36 Ketorolac IVP 15 mg IVP once ordered. cp cp 01:39 01:39 Abdomen Angio+CT.RAD.BRZ ordered. EDMS EDMS 01:39 01:39 Pelvis Angio+CT.RAD.BRZ ordered. EDMS EDMS
[2024-12-31 06:10] VITALS: TEMP 97.2
[2024-12-31 06:15] VITALS: O2SAT 99
[2024-12-31 06:19] VITALS: BP 115/76
--- NOTE | 2025-01-02 12:10 | EKG ---
Test Date: 2024-12-31 Test Time: 01:10:41 Solution Mixer: MICHAEL MEASUREMENT RESULTS: Intervals: Rate: 71 IL: 120 QRSD: 80 QT: 406 QTc: 441 [place]: P: 37 IL: 120 QRS: 78 T: 43 INTERPRETIVE STATEMENTS: Normal sinus rhythm Normal ECG Compared to ECG 12/04/2024 20:58:21 No significant changes Electronically Signed On 01-02-25 12:07:26 CDT by Jd Olmos
== END 2024-12-31 05:18 | disposition home or self-care (01) ==
LOC: ER 22:29
DX: R10.84 Generalized abdominal pain (principal); R11.2 Nausea with vomiting, unspecified; Z85.038 Personal history of other malignant neoplasm of large intestine
CPT/HCPCS: 96361; 93005; 85025; 36415; 86900; 83735; 86850; 85610; 86901; 85730; 83690; 80053; 72191; 74175; 96375; 96374; 99284; Q9967; J2765; J1200; J2470; J7030

== ENCOUNTER 2025-06-13 19:49 | Emergency (ER) | payer OTHER ==
[2025-06-13] MEDS ORDERED: ONDANSETRON 4 MG/2 ML VIAL ONE (20:08)
[2025-06-13] MEDS ORDERED: NA CHLORIDE 0.9% 1,000 ML ONE (20:08)
[2025-06-13] MEDS ORDERED: MORPHINE 4 MG/ML SYR ONE (20:08)
[2025-06-13 20:27] LABS: Absolute Lymphocytes (CBC) 1.7 K/uL (0.7-4.9); Hematocrit 41.7 % (39.6-49.0); Hemoglobin 14.3 g/dL (13.6-17.9); MCH 29.9 pg (27.0-35.0); MCHC 34.2 g/dL (32.0-36.0); MCV 87.5 fL (80-100); MPV 8.8 fL (7.6-11.3); Nucleated RBC Absolute Count 0.0 (0-0); Nucleated Red Blood Cells % 0.1 % (0-0); RBC Red Blood Cell Count 4.77 M/uL (4.33-5.43); White Blood Count 8.70 thou/uL (4.3-10.9)
[2025-06-13 20:46] LABS: ALT/SGPT 26.0 U/L (16-61); AST/SGOT 17.0 U/L (15-37); Albumin 3.2 g/dL (3.4-5.0); Albumin/Globulin Ratio 0.9 (1.1-1.8); Alkaline Phosphatase 105.0 U/L (45-117); Anion Gap 12.5 mEq/L (5.0-15.0); BUN Blood Urea Nitrogen 6.0 mg/dL (7-18); Globulin 3.5 g/dL (2.3-3.5); Glucose Level 137.0 mg/dL (74-106); Lipase 65.0 U/L (13-75); Potassium 3.5 mEq/L (3.5-5.1)
--- NOTE | 2025-06-13 21:37 | RAD REPORT ---
EXAMINATION: CT ABDOMEN AND PELVIS WITH CONTRAST CLINICAL INDICATION: Abdominal pain TECHNIQUE: CT abdomen and pelvis was performed, after the administration of 100 cc Isovue-300.. Sagit jena and coronal reconstructions were obtained. One or more of the following dose reduction techniques were used: Automated exposure control, adjustment of the mA and kV according to patient si ze, and iterative reconstruction. Unless otherwise specified, incidental findings do not require dedicated imaging follow-up. [id number]. Oral contrast was not given which limits evaluation of bowel and appendix. COMPARISON: .October and December 2024 FINDINGS: Liver, spleen, pancreas, adrenals and left kidney appear unremarkable Contracted gallbladder Tiny nonobstructing right renal calculus. No evidence of diverticulitis. Appendectomy Small inguinal hernias. Mild gastric distention : IMPRESSION: Mild gastric distention Contracted gallbladder. This has been present on some of the prior exams. Tiny nonobstructing right renal calculus
--- NOTE | 2025-06-13 22:36 | ER ---
Nurse's Notes [facility] Name: Adolph Keenan Age: 45 yrs Sex: Male : 1980 Arrival Date: 06/13/2025 Time: 19:49 Bed 13 Private MD: Diagnosis: Abdominal pain, Generalized Presentation: 06/13 19:54 Chief complaint: Patient states: RT/LT UPPER STOMACH PAIN AND NAUSEA. PT REPORTS dd2 DIARRHEA YESTERDAY AND VOMITING X1 DAY. Coronavirus screen: diarrhea, fever, nausea, vomiting. Ebola Screen: No symptoms or risks identified at this time. Initial Sepsis Screen: Does the patient meet any 2 criteria? No. Patient's initial sepsis screen is negative. Does the patient have a suspected source of infection? No. Patient's initial sepsis screen is negative. Risk Assessment: Do you want to hurt yourself or someone else? Patient reports no desire to harm self or others. Onset of symptoms was June 12, 2025. 19:54 Method Of Arrival: Ambulatory dd2 19:54 Acuity: JOAQUIN 3 dd2 Triage Assessment: 19:54 General: Appears in no apparent distress. uncomfortable, Behavior is calm, cooperative, dd2 appropriate for age. Pain: Complains of pain in right upper quadrant and left upper quadrant Pain currently is 8 out of 10 on a pain scale. GI: Abdomen is non-distended, Reports upper abdominal pain, diarrhea, nausea, vomiting. Historical: - Allergies: 19:54 No Known Allergies; dd2 - PMHx: 19:54 colon cancer (2024); [place] (Unknown); dd2 - PSHx: 19:54 Appendectomy; right hand; dd2 - Immunization history:: Adult Immunizations unknown. - Infectious Disease History:: Denies. - Social history:: Smoking status: Patient denies any tobacco usage or history of. Screenin:17 [facility] ED Fall Risk Assessment (Adult) History of falling in the last 3 months, af3 including since admission No falls in past 3 months (0 pts) Confusion or Disorientation No (0 pts) Intoxicated or Sedated No (0 pts) Impaired Gait No (0 pts) Mobility Assist Device Used No (0 pt) Altered Elimination No (0 pt) Score/Fall Risk Level 0 - 2 = Low Risk Oriented to surroundings, Maintained a safe environment, Educated pt \T\ family on fall prevention, incl call for assistance when getting out of bed. Abuse screen: Denies threats or abuse. Denies injuries from another. Nutritional screening: No deficits noted. Tuberculosis screening: No symptoms or risk factors identified. Assessment: 20:17 General: Appears in no apparent distress. distressed, comfortable, Behavior is calm, af3 cooperative, appropriate for age. Pain: Complains of pain in abdomen. Neuro: Level of Consciousness is awake, alert, obeys commands, Oriented to person, place, time, situation, Appropriate for age. Cardiovascular: Patient's skin is warm and dry. Respiratory: Airway is patent Respiratory effort is even, unlabored, Respiratory pattern is regular, symmetrical. 21:36 Reassessment: Patient appears in no apparent distress at this time. No changes from af3 previously documented assessment. Patient and/or family updated on plan of care and expected duration. Pain level reassessed. 22:36 Reassessment: Patient appears in no apparent distress at this time. No changes from af3 previously documented assessment. Patient and/or family updated on plan of care and expected duration. Pain level reassessed. Vital Signs: 19:54 BP 133 / 76; Pulse 85; Resp 16; Temp 99.2(O); Pulse Ox 99% on R/A; Weight 67.13 kg; dd2 Pain 8/10; 20:19 BP 141 / 81; Pulse 81; Resp 18; Pulse Ox 98% on R/A; af3 21:36 BP 150 / 80; Pulse 90; Resp 18; Pulse Ox 100% on R/A; af3 22:14 BP 137 / 63; Pulse 90; Resp 18; Pulse Ox 100% on R/A; af3 19:54 Pain Scale: Adult dd2 ED Course: 19:52 Patient arrived in ED. mr 19:53 Arely Holloway PA-C is PHCP. sb4 19:53 Kieran De Leon DO is Attending Physician. sb4 19:54 Arm band placed on right wrist. dd2 19:55 Addis Pyle, RUTH is Primary Nurse. af3 19:59 Triage completed. dd2 20:17 Patient has correct armband on for positive identification. Bed in low position. Call af3 light in reach. Provided Education on: call light use . 20:17 No provider procedures requiring assistance completed. af3 20:18 Initial lab(s) drawn, by equipment operator/laborer/supervisor, sent to lab. Inserted saline lock: 18 gauge in right oe wrist, using aseptic technique. Blood collected. Flushed with 10 mL NS. 21:11 CT Abd/Pelvis - IV Contrast Only In Process Unspecified. EDMS 22:41 IV discontinued, intact, bleeding controlled, No redness/swelling at site. Pressure af3 dressing applied. Administered Medications: 20:16 Drug: NS 0.9% IV 1000 ml IV at 1 bolus Per protocol; to be given as a bolus over 60 af3 minutes Route: IV; Rate: 1 bolus; Site: right hand; 22:13 Follow up: Response: No adverse reaction; IV Status: Completed infusion; IV Intake: af3 1000ml 20:17 Drug: Ondansetron IVP 4 mg IVP once; over 2 minutes Route: IVP; Site: right hand; af3 21:31 Follow up: Response: No adverse reaction af3 20:17 Drug: morphine IVP or IV 4 mg IVP once over 4 mins Route: IVP; Infused Over: 4 mins; af3 Site: right hand; 21:31 Follow up: Response: No adverse reaction af3 21:31 Drug: Droperidol IVP 2.5 mg IVP once Route: IVP; Site: right hand; af3 22:13 Follow up: Response: No adverse reaction af3 22:36 Follow up: Response: No adverse reaction af3 21:42 CANCELLED (Physician Discretion): poliovirus vaccine (ipv)0.5 ml Sub-Q once sb4 Medication: 20:17 VIS not applicable for this client. af3 Intake: 22:13 IV: 1000ml; Total: 1000ml. af3 Outcome: 22:35 Discharge ordered by . sb4 22:41 Discharged to home ambulatory, af3 22:41 Condition: stable 22:41 Discharge instructions given to patient, Instructed on discharge instructions, follow up and referral plans. Demonstrated understanding of instructions, follow-up care, 22:42 Patient left the ED. af3 Signatures: Dispatcher [employer] EDTN Carmelita Lang, Fritz Reg mr Kong, Arely Perkins, PAAdrianneC PASandra sb4 Addis Pyle RN RN af3 CHER LARSON RN RN dd2
--- NOTE | 2025-06-13 22:36 | EDPHYS ---
Physician Documentation [facility] Name: Adolph Keenan Age: 45 yrs Sex: Male : 1980 Arrival Date: 06/13/2025 Time: 19:49 Bed 13 Private MD: ED Physician Kieran De Leon HPI: 06/13 20:15 This 45 yrs old Male presents to ER via Ambulatory with complaints of sb4 Abdominal Pain. 20:15 Patient reports diffuse abdominal pain over the past week with associated nausea, sb4 vomiting, and diarrhea. States that the pain is mostly upper. Does report a history of colon cancer and is currently undergoing chemotherapy with MD Moreira. Historical: - Allergies: 19:54 No Known Allergies; dd2 - PMHx: 19:54 colon cancer (2024); [place] (Unknown); dd2 - PSHx: 19:54 Appendectomy; right hand; dd2 - Immunization history:: Adult Immunizations unknown. - Infectious Disease History:: Denies. - Social history:: Smoking status: Patient denies any tobacco usage or history of. ROS: 20:15 Constitutional: Negative for fever, chills, and weight loss, sb4 20:15 Abdomen/GI: Positive for abdominal pain, nausea, vomiting, and diarrhea, 20:15 All other systems are negative, Exam: 20:15 Head/Face: Normocephalic, atraumatic. Eyes: Extra-ocular motions intact. Periorbital sb4 areas with no swelling, redness, or edema. ENT: Mucous membranes moist. Cardiovascular: Regular rate and rhythm with a normal S1 and S2. Respiratory: No increased work of breathing, no retractions or nasal flaring. Skin: Warm, dry with normal turgor. Normal color with no rashes, no lesions, and no evidence of cellulitis. 20:15 Constitutional: The patient appears in no acute distress, alert, awake, 20:15 Abdomen/GI: Inspection: abdomen appears normal, Bowel sounds: normal, Palpation: soft, mild abdominal tenderness, in the right upper quadrant and left upper quadrant, Vital Signs: 19:54 BP 133 / 76; Pulse 85; Resp 16; Temp 99.2(O); Pulse Ox 99% on R/A; Weight 67.13 kg; dd2 Pain 8/10; 20:19 BP 141 / 81; Pulse 81; Resp 18; Pulse Ox 98% on R/A; af3 21:36 BP 150 / 80; Pulse 90; Resp 18; Pulse Ox 100% on R/A; af3 22:14 BP 137 / 63; Pulse 90; Resp 18; Pulse Ox 100% on R/A; af3 19:54 Pain Scale: Adult dd2 MDM: 19:54 Medical Screening Exam initiated sb4 20:15 Differential diagnosis: bowel obstruction, cholecystitis, Cholelithiasis, GI Bleed, sb4 Hepatitis, non-specific abd pain, pancreatitis, Peptic Ulcer Disease, urinary tract infection. Care significantly affected by the following chronic conditions: Cancer. 22:34 Data reviewed: vital signs, nurses notes, lab test result(s), radiologic studies, and sb4 as a result, I will discharge patient. Counseling: I had a detailed discussion with the patient and/or guardian regarding the historical points, exam findings, and any diagnostic results supporting the discharge/admit diagnosis, the presence of at least one elevated blood pressure reading (>120/80) during this emergency department visit, lab results, radiology results, the need for outpatient follow up, for definitive care, to return to the emergency department if symptoms worsen or persist or if there are any questions or concerns that arise at home. 06/13 20:04 Order name: CBC with Diff; Complete Time: 20:29 sb4 06/13 20:04 Order name: CMP; Complete Time: 20:46 sb4 06/13 20:04 Order name: Lipase; Complete Time: 20:46 sb4 06/13 20:04 Order name: CT Abd/Pelvis - IV Contrast Only; Complete Time: 21:39 sb4 06/13 20:04 Order name: IV Saline Lock; Complete Time: 20:16 sb4 06/13 20:04 Order name: Labs collected and sent; Complete Time: 20:16 sb4 06/13 21:42 Order name: PO challenge; Complete Time: 22:11 sb4 Administered Medications: 20:16 Drug: NS 0.9% IV 1000 ml IV at 1 bolus Per protocol; to be given as a bolus over 60 af3 minutes Route: IV; Rate: 1 bolus; Site: right hand; 22:13 Follow up: Response: No adverse reaction; IV Status: Completed infusion; IV Intake: af3 1000ml 20:17 Drug: Ondansetron IVP 4 mg IVP once; over 2 minutes Route: IVP; Site: right hand; af3 21:31 Follow up: Response: No adverse reaction af3 20:17 Drug: morphine IVP or IV 4 mg IVP once over 4 mins Route: IVP; Infused Over: 4 mins; af3 Site: right hand; 21:31 Follow up: Response: No adverse reaction af3 21:31 Drug: Droperidol IVP 2.5 mg IVP once Route: IVP; Site: right hand; af3 22:13 Follow up: Response: No adverse reaction af3 22:36 Follow up: Response: No adverse reaction af3 21:42 CANCELLED (Physician Discretion): poliovirus vaccine (ipv)0.5 ml Sub-Q once sb4 Disposition: 22:56 Co-signature as Attending Physician, Kieran De Leon DO I reviewed the patient's care tt7 provided by the Advanced Practice Provider and agree with the diagnosis and treatment plan. Disposition Summary: 06/13/25 22:35 Discharge Ordered Notes: Location: Home sb4 Problem: new sb4 Symptoms: have improved sb4 Condition: Stable sb4 Diagnosis - Abdominal pain, Generalized sb4 Followup: sb4 - With: Private Physician - When: As needed - Reason: Recheck today's complaints, Re-evaluation by your physician Discharge Instructions: - Discharge Summary Sheet sb4 - Abdominal Pain, Adult sb4 Forms: - Patient Portal Instructions sb4 - Leadership Thank You Letter sb4 Signatures: Dispatcher [employer] Arely Juarez PA-C PA-C sb4 Addis Pyle RN RN af3 CHER LARSON RN RN dd2 Kieran De Leon DO DO tt7 Corrections: (The following items were deleted from the chart) 20:05 20:05 CBC+H.LAB.BRZ ordered. EDMS EDMS 20:05 20:05 COMPREHENSIVE METABOLIC PANEL+C.LAB.BRZ ordered. EDMS EDMS 20:05 20:05 LIPASE+C.LAB.BRZ ordered. EDMS EDMS 20:05 20:05 Abdomen Pelvis W Con+CT.RAD.BRZ ordered. EDMS EDMS 21:42 21:42 Poliovirus Vaccine (IPV) Sub-Q 0.5 ml Sub-Q once ordered. sb4 sb4
[2025-06-14 05:31] VITALS: TEMP 99.2
[2025-06-14 05:41] VITALS: O2SAT 100
[2025-06-14 05:46] VITALS: BP 137/63
== END 2025-06-13 22:42 | disposition home or self-care (01) ==
LOC: ER 19:49
DX: R10.84 Generalized abdominal pain (principal); R11.2 Nausea with vomiting, unspecified; R19.7 Diarrhea, unspecified; Z85.038 Personal history of other malignant neoplasm of large intestine
CPT/HCPCS: 96361; 85025; 36415; 83690; 80053; 74177; 96375; 96374; 99284; Q9967; J2405; J1790; J7030